=== PATIENT | female | born 1950 | race Caucasian/White ===

== ENCOUNTER → 2017-09-24 | Outpatient (CLI) | payer MEDICARE ==
--- NOTE | 2017-09-24 13:18 | Diagnostic Imaging Report ---
INDICATION: Routine screening. Comparison is made with prior exam from 04/17/2016 and 03/22/2015. The current study was also evaluated with a Computer Aided Detection (CAD) system. Both breasts remain heterogeneously dense, limiting the sensitivity of mammography. Benign-appearing calcifications are noted bilaterally. There are benign-appearing nodular densities in both breasts which appear stable. No spiculated mass or malignant appearing microcalcifications are seen. The axillae are unremarkable. IMPRESSION: BI-RADS category 2 No mammographic features suspicious for malignancy are identified. ACR BI-RADS Category 2: Benign findings. Result letter will be mailed to the patient. Note: At least 10% of breast cancer is not imaged by mammography. Dictated by: Dictated on workstation # [id number]
== END ==
LOC: RAD 10:44
PROVIDERS: ATTEND Internal Medicine
DX: Z12.31 Encounter for screening mammogram for malignant neoplasm of breast (principal)
CPT/HCPCS: 77067

== ENCOUNTER 2018-07-13 06:24 | Outpatient (CLI) | payer MEDICARE ==
[~2018-07-13] VITALS: Ht 167.6 cm; Wt 90.7 kg
[2018-07-13] MEDS ORDERED: IRBE1TAB43 PO (12:57)
[2018-07-13] MEDS ORDERED: TRAM50TA2 PO (12:57)
[2018-07-13] MEDS ORDERED: ATOR40TA70 PO (12:57)
[2018-07-13] MEDS ORDERED: NALT1TAB PO (12:57)
[2018-07-13] MEDS ORDERED: ESTR0.5T PO (12:57)
[2018-07-13] MEDS ORDERED: MIRA25TA PO (12:57)
[2018-07-13] MEDS ORDERED: FENO145T37 PO (12:57)
== END 2018-07-13 13:00 | disposition home or self-care (01) ==
LOC: PREOP 06:24
PROVIDERS: ATTEND Specialist
DX: Z01.818 Encounter for other preprocedural examination (principal)

== ENCOUNTER 2018-07-16 10:16 | Day surgery (SDC) | payer MEDICARE ==
[~2018-07-16] VITALS: Ht 167.6 cm; Wt 90.7 kg
[~2018-07-16 10:16] MED LIST: ATOR40TA70 PO; ESTR0.5T PO; FENO145T37 PO; IRBE1TAB43 PO; MIRA25TA PO; NALT1TAB PO; TRAM50TA2 PO
--- OUTSIDE RECORDS SUMMARY | 2018-07-16 10:19 | XMS REPORT ---
Author Author HARITHA LANG [facility] Address [address] [place] [address] Care Team Providers Care Product Architect Name Role Phone HARITHA LANG Unavailable PROBLEMS Unknown Problems ALLERGIES No Information SOCIAL HISTORY Never Assessed PLAN OF CARE VITAL SIGNS MEDICATIONS Unknown Medications RESULTS No Results PROCEDURES No Known procedures IMMUNIZATIONS No Known Immunizations
--- OUTSIDE RECORDS SUMMARY | 2018-07-16 10:19 | XMS REPORT ---
Author Author NIMO SNIDER Organization [facility] Address [address] [place] [address] Care Team Providers Care Steamship Agent Name Role Phone NIMO SNIDER Unavailable PROBLEMS Unknown Problems ALLERGIES No Information ENCOUNTERS Encounter Location Date Diagnosis [place] [id number], [place] [address] Nov, [facility] [id number] [place] [phone] Mar, [place] [id number] [place] [address] Mar, Encounter for immunization Z23 [place] [address], [place] [address] Jul, [facility] [address], [place] [address] Dec, Vaccin strep pneumoniae V03.82 IMMUNIZATIONS No Known Immunizations SOCIAL HISTORY Never Assessed REASON FOR VISIT Tramadol PLAN OF CARE VITAL SIGNS MEDICATIONS Medication Instructions Dosage Frequency Start Date End Date Duration Status Tramadol HCl 50 MG TAKE 1 TABLET BY MOUTH THREE TIMES DAILY NEEDED FOR PAIN 33 Active RESULTS No Results PROCEDURES No Known procedures INSTRUCTIONS MEDICATIONS ADMINISTERED No Known Medications
--- OUTSIDE RECORDS SUMMARY | 2018-07-16 10:19 | XMS REPORT | Continuity of Care Document ---
Author Author [facility] Organization [facility] Address Unknown Phone Unavailable Allergies Active Description Code Type Severity Reaction Onset Reported/Identified Relationship to Patient Clinical Status Yes adhesive tape [id number] Drug Allergy Unknown N/A 07/13/2018 Medications There is no data. Problems Date Dx Coded Attending Type Code Diagnosis Diagnosed By 04/03/2015 AURELIO FERRER MD, Ot Z12.31 04/11/2015 AURELIO FERRER MD, Ot Z12.31 04/25/2015 AURELIO FERRER MD, Ot R92.8 10/10/2015 AURELIO FERRER MD Ot N60.02 SOLITARY CYST OF LEFT BREAST 11/05/2015 AURELIO FERRER MD, Ot N60.02 SOLITARY CYST OF LEFT BREAST 04/17/2016 AURELIO FERRER MD, Ot Z12.31 ENCNTR SCREEN MAMMOGRAM FOR MALIGNANT NE 04/18/2016 AURELIO FERRER MD, Ot Z12.31 ENCNTR SCREEN MAMMOGRAM FOR MALIGNANT NE 04/18/2016 AURELIO FERRER MD Ot R92.8 OTH ABN AND INCONCLUSIVE FINDINGS ON DX 04/18/2016 AURELIO FERRER MD Ot N60.02 SOLITARY CYST OF LEFT BREAST 04/18/2016 AURELIO FERRER MD, Ot Z12.31 ENCNTR SCREEN MAMMOGRAM FOR MALIGNANT NE 04/18/2016 AURELIO FERRER MD, Ot Z12.31 ENCNTR SCREEN MAMMOGRAM FOR MALIGNANT NE 04/28/2016 AURELIO FERRER MD, Ot Z12.31 ENCNTR SCREEN MAMMOGRAM FOR MALIGNANT NE 08/02/2016 Ot 733.90 BONE CARTILAGE DIS NOS 08/02/2016 Ot V76.12 OTH SCREEN MAMMO-MALIGN NEOPLASM OF UMU 08/02/2016 AURELIO FERRER MD Ot V76.12 OTH SCREEN MAMMO-MALIGN NEOPLASM OF UMU 08/03/2016 Ot 733.90 BONE CARTILAGE DIS NOS 08/03/2016 Ot V76.12 OTH SCREEN MAMMO-MALIGN NEOPLASM OF UMU 08/03/2016 AURELIO FERRER MD Ot V76.12 OTH SCREEN MAMMO-MALIGN NEOPLASM OF UMU 09/22/2017 AURELIO FERRER MD, Ot Z12.31 ENCNTR SCREEN MAMMOGRAM FOR MALIGNANT NE 09/24/2017 AURELIO FERRER MD, Ot Z12.31 ENCNTR SCREEN MAMMOGRAM FOR MALIGNANT NE 09/24/2017 AURELIO FERRER MD Ot R92.8 OTH ABN AND INCONCLUSIVE FINDINGS ON DX 09/24/2017 AURELIO FERRER MD Ot N60.02 SOLITARY CYST OF LEFT BREAST 09/24/2017 AURELIO FERRER MD, Ot Z12.31 ENCNTR SCREEN MAMMOGRAM FOR MALIGNANT NE 09/25/2017 AURELIO FERRER MD, Ot Z12.31 ENCNTR SCREEN MAMMOGRAM FOR MALIGNANT NE 10/14/2017 AURELIO FERRER MD, Ot Z12.31 ENCNTR SCREEN MAMMOGRAM FOR MALIGNANT NE 07/13/2018 SULY BAR MD Ot Z01.818 ENCOUNTER FOR OTHER PREPROCEDURAL EXAMIN 07/14/2018 SULY BAR MD Ot Z01.818 ENCOUNTER FOR OTHER PREPROCEDURAL EXAMIN 07/15/2018 AURELIO FERRER MD Ot Z12.31 ENCNTR SCREEN MAMMOGRAM FOR MALIGNANT NE 07/15/2018 AURELIO FERRER MD, Ot R92.8 OTH ABN AND INCONCLUSIVE FINDINGS ON DX 07/15/2018 AURELIO FERRER MD Ot N60.02 SOLITARY CYST OF LEFT BREAST 07/15/2018 AURELIO FERRER MD Ot Z12.31 ENCNTR SCREEN MAMMOGRAM FOR MALIGNANT NE 07/15/2018 AURELIO FERRER MD, Ot Z12.31 ENCNTR SCREEN MAMMOGRAM FOR MALIGNANT NE Procedures There is no data. Results There is no data. Encounters ACCT No. Visit Date/Time Discharge Status Pt. Type Provider Facility Loc./Unit Complaint [id number] 07/13/2018 06:24:00 07/13/2018 13:00:00 DIS Outpatient SULY BAR MD [facility] PREOP LEFT CATARACT [id number] 09/24/2017 10:44:00 09/24/2017 23:59:59 CLS Outpatient AURELIO FERRER MD [facility] RAD SCREENING [id number] 04/30/2017 11:19:00 04/30/2017 23:59:59 CLS Preadmit AURELIO FERRER MD [facility] RAD SCREENING [id number] 04/17/2016 12:52:00 04/17/2016 23:59:59 CLS Outpatient AURELIO FERRER MD [facility] RAD YEARLY SCREENING [id number] 10/08/2015 13:38:00 10/08/2015 23:59:59 CLS Outpatient AURELIO FERRER MD [facility] RAD 6 MONTH FOLLOW UP [id number] 04/02/2015 08:20:00 04/02/2015 23:59:59 CLS Outpatient AURELIO FERRER MD [facility] RAD MEDIAL L BREAST BREAST FOCAL ASYMMETRY [id number] 03/22/2015 11:24:00 03/22/2015 23:59:59 CLS Outpatient AURELIO FERRER MD [facility] RAD SCREENING [id number] 08/09/2013 09:54:00 08/09/2013 23:59:59 CLS Outpatient AURELIO FERRER MD [facility] RAD SCREENING [id number] 07/30/2018 08:00:00 PEN Preadmit SULY BAR MD [facility] CATARACT RIGHT EYE [id number] 07/16/2018 10:16:00 ACT Outpatient SULY BAR MD [facility] LEFT CATARACT [id number] 12/19/2011 09:34:00 Document Registration [id number] 04/13/2017 14:20:00 04/13/2017 23:59:59 CLS Outpatient PRECIOUS ONEILL, [facility]
--- OUTSIDE RECORDS SUMMARY | 2018-07-16 10:19 | XMS REPORT ---
Author Author NIMO SNIDER Organization [facility] Address [address] [place] [address] Care Team Providers Care Medical Lab Tech Instructor Name Role Phone TYLORINMO Unavailable PROBLEMS Unknown Problems ALLERGIES No Information ENCOUNTERS Encounter Location Date Diagnosis [place] [address] [address] Mar, [place] [address] [address] Mar, Encounter for immunization Z23 [place] [address] [place] [id number] [address] Jul, [place] [address] [address] Dec, Vaccin strep pneumoniae V03.82 IMMUNIZATIONS No Known Immunizations SOCIAL HISTORY Never Assessed REASON FOR VISIT TrAMADOL PLAN OF CARE VITAL SIGNS MEDICATIONS Medication Instructions Dosage Frequency Start Date End Date Duration Status Ultram 50 mg Orally 3 times a day 1 tablet as needed 8h Jun, 30 days Active RESULTS No Results PROCEDURES No Known procedures INSTRUCTIONS MEDICATIONS ADMINISTERED No Known Medications
[2018-07-16 10:28] VITALS: BP 126/76
[2018-07-16] MEDS ORDERED: POVIDONE (BETADINE) OPHTH SOLN 5% 30 ML OP ONE (10:30)
[2018-07-16] MEDS ORDERED: TIMOLOL MALEATE 0.5% 5 ML (TIMOPTIC) BTL OU PRN (10:30)
[2018-07-16] MEDS ORDERED: LIDOCAINE PF 1% 2 ML AMP IR PRN (10:30)
[2018-07-16] MEDS ORDERED: MOXIFLOXACIN OPHTH SOLN 5 MG/ML 0.3 ML SYRINGE OP ONE (10:30)
[2018-07-16] MEDS: TETRACAINE 0.5% OPHTH SOLN 4 ML BTL (SINGLE DOSE ONLY) OU PRN ×3 (10:40→10:52)
[2018-07-16] MEDS ORDERED: MIDAZOLAM 2 MG/2 ML (VERSED) VIAL ONE (10:40)
[2018-07-16] MEDS: PHENYLEPHRINE 10% OPHTH (NEO-SYN) 5 ML BTL OU SCH ×3 (10:48→10:58)
[2018-07-16] MEDS: CYCLOPENTOLATE 1% (CYCLOGYL) 2 ML DROPS OP SCH ×3 (10:48→10:58)
--- NOTE | 2018-07-16 10:51 | Ophthalmologist Pre-Op Note ---
Pre-Operative Progress Note H&P Reviewed The H&P was reviewed, patient examined and no changes noted. Date H&P Reviewed: Jul 16, 2018 Time H&P Reviewed: 10:50 Pre-Op Dx Cataract, Left Eye SULY BAR MD Jul 16, 2018 10:50
--- NOTE | 2018-07-16 11:21 | Ophthalmology Operative Report ---
Cataract removal/placement IOL PREOPERATIVE DIAGNOSIS: Cataract Left Eye POSTOPERATIVE DIAGNOSIS: Cataract Left Eye PROCEDURE: Cataract removal and placement of posterior chamber implant, left eye SURGEON: Sergio Bar ANESTHESIA: Topical with sedation COMPLICATIONS: None ESTIMATED BLOOD LOSS: Minimal DESCRIPTION OF PROCEDURE: After proper informed consent was obtained, the patient, a 68 female, was taken to the Operating Room and the left eye was anesthetized with tetracaine. The left eye was then prepped and draped in the usual manner. A wire lid speculum was placed. A paracentesis was made at the left hand position. Preservative free lidocaine was injected into the anterior chamber followed by viscoelastic. A clear corneal incision was made in the temporal position. A capsulorrhexis was preformed and the central nuclear and cortical material were removed. The posterior capsule was polished and an Jesse 20.0 AU00T0 was placed into the capsular bag. The residual viscoelastic was aspirated and balanced saline solution was injected into the anterior chamber. Moxifloxacin was injected into the anterior chamber. The wound was checked and found to be water tight. The patient tolerated the procedure well without complications. SERGIO BAR MD Jul 16, 2018 11:21
[2018-07-16 11:29] VITALS: BP 130/79
[2018-07-16] MEDS ORDERED: acetaZOLAMIDE ER 500 MG CAP (DIAMOX SEQUELS) PO ONE (12:00)
--- NOTE | 2018-07-16 12:56 | Anesthesia-General Post-Op ---
MAC Patient Condition Mental Status/LOC: Same as Preop Cardiovascular: Satisfactory Nausea/Vomiting: Absent Respiratory: Satisfactory Pain: Controlled Complications: Absent Post Op Complications Complications None Follow Up Care/Instructions Patient Instructions None needed. Anesthesiology Discharge Order Discharge Order Patient is doing well, no complaints, stable vital signs, no apparent adverse anesthesia problems. No complications reported per nursing. CONSTANZA LAMB CRNA Jul 16, 2018 12:56
== END 2018-07-16 11:30 | disposition home or self-care (01) ==
LOC: SDC 10:16
PROVIDERS: ATTEND Specialist
DX: H25.12 Age-related nuclear cataract, left eye (principal); I10 Essential (primary) hypertension; Z79.899 Other long term (current) drug therapy

== ENCOUNTER 2018-07-23 05:39 | Outpatient (CLI) | payer MEDICARE ==
[~2018-07-23] VITALS: Ht 167.6 cm; Wt 90.7 kg
== END 2018-07-23 13:34 | disposition home or self-care (01) ==
LOC: PREOP 05:39
PROVIDERS: ATTEND Specialist
DX: Z01.818 Encounter for other preprocedural examination (principal)

== ENCOUNTER 2018-07-30 06:35 | Day surgery (SDC) | payer MEDICARE ==
[~2018-07-30] VITALS: Ht 167.6 cm; Wt 90.7 kg
[2018-07-30 06:42] VITALS: BP 144/82
--- OUTSIDE RECORDS SUMMARY | 2018-07-30 06:42 | XMS REPORT | Continuity of Care Document ---
Author Author [facility] Organization [facility] Address Unknown Phone Unavailable Allergies Active Description Code Type Severity Reaction Onset Reported/Identified Relationship to Patient Clinical Status Yes adhesive tape [id number] Drug Allergy Unknown N/A 07/13/2018 Medications There [...] MAMMO-MALIGN NEOPLASM OF UMU 09/22/2017 AURELIO FERRER MD Ot Z12.31 ENCNTR SCREEN MAMMOGRAM FOR MALIGNANT NE 09/24/2017 AURELIO FERRER MD Ot Z12.31 ENCNTR SCREEN MAMMOGRAM FOR MALIGNANT NE 09/24/2017 AURELIO FERRER MD Ot R92.8 OTH ABN AND INCONCLUSIVE FINDINGS ON DX 09/24/2017 AURELIO FERRER MD Ot N60.02 SOLITARY CYST OF LEFT BREAST 09/24/2017 AURELIO FERRER MD, Ot Z12.31 ENCNTR SCREEN MAMMOGRAM FOR MALIGNANT NE 09/25/2017 AURELIO FERRER MD Ot Z12.31 ENCNTR SCREEN MAMMOGRAM FOR MALIGNANT NE 10/14/2017 AURELIO FERRER MD Ot Z12.31 ENCNTR SCREEN MAMMOGRAM FOR MALIGNANT NE 07/13/2018 SULY BAR MD Ot Z01.818 ENCOUNTER FOR OTHER PREPROCEDURAL EXAMIN 07/14/2018 SULY BAR MD Ot Z01.818 ENCOUNTER FOR OTHER PREPROCEDURAL EXAMIN 07/15/2018 AURELIO FERRER MD Ot Z12.31 ENCNTR SCREEN MAMMOGRAM FOR MALIGNANT NE 07/15/2018 AURELIO FERRER MD Ot R92.8 OTH ABN AND INCONCLUSIVE FINDINGS ON DX 07/15/2018 AURELIO FERRER MD Ot N60.02 SOLITARY CYST OF LEFT BREAST 07/15/2018 AURELIO FERRER MD Ot Z12.31 ENCNTR SCREEN MAMMOGRAM FOR MALIGNANT NE 07/15/2018 AURELIO FERRER MD Ot Z12.31 ENCNTR SCREEN MAMMOGRAM FOR MALIGNANT NE 07/16/2018 SULY BAR MD Ot H25.12 AGE-RELATED NUCLEAR CATARACT, LEFT EYE 07/16/2018 SULY BAR MD Ot I10 ESSENTIAL (PRIMARY) HYPERTENSION 07/16/2018 SULY BAR MD Ot Z79.899 OTHER CONFIGURATION SPECIALIST (CURRENT) DRUG THERAPY 07/19/2018 SULY BRA MD Ot H25.12 AGE-RELATED NUCLEAR CATARACT, LEFT EYE 07/19/2018 SULY BAR MD Ot I10 ESSENTIAL (PRIMARY) HYPERTENSION 07/19/2018 SULY BAR MD Ot Z79.899 OTHER LONG-TERM (CURRENT) DRUG THERAPY 07/21/2018 SULY BAR MD Ot H25.12 AGE-RELATED NUCLEAR CATARACT, LEFT EYE 07/21/2018 SULY BAR MD Ot I10 ESSENTIAL (PRIMARY) HYPERTENSION 07/21/2018 SULY BAR MD Ot Z79.899 OTHER CONFIGURATION SPECIALIST (CURRENT) DRUG THERAPY 07/23/2018 SULY BAR MD Ot Z01.818 ENCOUNTER FOR OTHER PREPROCEDURAL EXAMIN 07/29/2018 AURELIO FERRER MD, Ot Z12.31 ENCNTR SCREEN MAMMOGRAM FOR MALIGNANT NE 07/29/2018 AURELIO FERRER MD, Ot R92.8 OTH ABN AND INCONCLUSIVE FINDINGS ON DX 07/29/2018 AURELIO FERRER MD Ot N60.02 SOLITARY CYST OF LEFT BREAST 07/29/2018 AURELIO FERRER MD, Ot Z12.31 ENCNTR SCREEN MAMMOGRAM FOR MALIGNANT NE 07/29/2018 AURELIO FERRER MD, Ot Z12.31 ENCNTR SCREEN MAMMOGRAM FOR MALIGNANT NE Procedures There is no data. Results There is no data. Encounters ACCT No. Visit Date/Time Discharge Status Pt. Type Provider Facility Loc./Unit Complaint [id number] 07/23/2018 05:39:00 07/23/2018 13:34:00 DIS Outpatient SULY BAR MD [facility] PREOP RIGHT CATARACT [id number] 07/16/2018 10:16:00 07/16/2018 11:30:00 DIS Outpatient SULY BAR MD [facility] SDC LEFT CATARACT [id number] 07/13/2018 06:24:00 07/13/2018 13:00:00 DIS Outpatient SULY BAR MD [facility] PREOP LEFT CATARACT [id number] 09/24/2017 10:44:00 09/24/2017 23:59:59 CLS Outpatient AURELIO FERRER MD [facility] RAD SCREENING [id number] 04/30/2017 11:19:00 04/30/2017 23:59:59 CLS Preadmit AURELIO FERRER MD [facility] RAD SCREENING [id number] 04/17/2016 12:52:00 04/17/2016 23:59:59 CLS Outpatient AURELIO FERRER MD [facility] RAD YEARLY SCREENING [id number] 10/08/2015 13:38:00 10/08/2015 23:59:59 CLS Outpatient AURELIO FERRER MD [facility] RAD 6 MONTH FOLLOW UP [id number] 04/02/2015 08:20:00 04/02/2015 23:59:59 CLS Outpatient AURELIO FERRER MD [facility] RAD MEDIAL L BREAST BREAST FOCAL ASYMMETRY [id number] 03/22/2015 11:24:00 03/22/2015 23:59:59 CLS Outpatient AURELIO FERRER MD [facility] RAD SCREENING [id number] 08/09/2013 09:54:00 08/09/2013 23:59:59 CLS Outpatient AURELIO FERRER MD [facility] RAD SCREENING [id number] 07/30/2018 08:00:00 SULY Mccann MD [facility] SDC CATARACT RIGHT EYE [id number] 12/19/2011 09:34:00 Document Registration [id number] 04/13/2017 14:20:00 04/13/2017 23:59:59 CLS [facility]
[2018-07-30] MEDS ORDERED: MOXIFLOXACIN OPHTH SOLN 5 MG/ML 0.3 ML SYRINGE OP ONE (06:45)
[2018-07-30] MEDS ORDERED: LIDOCAINE PF 1% 2 ML AMP IR PRN (06:45)
[2018-07-30] MEDS ORDERED: TIMOLOL MALEATE 0.5% 5 ML (TIMOPTIC) BTL OU PRN (06:45)
[2018-07-30] MEDS ORDERED: POVIDONE (BETADINE) OPHTH SOLN 5% 30 ML OP ONE (06:45)
[2018-07-30] MEDS: TETRACAINE 0.5% OPHTH SOLN 4 ML BTL (SINGLE DOSE ONLY) OU PRN ×4 (06:50→07:05)
[2018-07-30] MEDS: CYCLOPENTOLATE 1% (CYCLOGYL) 2 ML DROPS OP SCH ×3 (06:55→07:06)
[2018-07-30] MEDS: PHENYLEPHRINE 10% OPHTH (NEO-SYN) 5 ML BTL OU SCH ×3 (06:55→07:06)
[2018-07-30] MEDS ORDERED: MIDAZOLAM 2 MG/2 ML (VERSED) VIAL ONE (07:36)
--- NOTE | 2018-07-30 07:39 | Ophthalmologist Pre-Op Note ---
Pre-Operative Progress Note H&P Reviewed The H&P was reviewed, patient examined and no changes noted. Date H&P Reviewed: Jul 30, 2018 Time H&P Reviewed: 07:39 Pre-Op Dx Cataract, Right Eye SULY BAR MD Jul 30, 2018 07:39
[2018-07-30] MEDS ORDERED: acetaZOLAMIDE ER 500 MG CAP (DIAMOX SEQUELS) PO ONE (08:00)
--- NOTE | 2018-07-30 08:00 | Ophthalmology Operative Report ---
Cataract removal/placement IOL PREOPERATIVE DIAGNOSIS: Cataract Right Eye POSTOPERATIVE DIAGNOSIS: Cataract Right Eye PROCEDURE: Cataract removal and placement of posterior chamber implant, right eye SURGEON: Sergio Bar ANESTHESIA: Topical with sedation COMPLICATIONS: None ESTIMATED BLOOD LOSS: Minimal DESCRIPTION OF PROCEDURE: After proper informed consent was obtained, the patient, a 68 female, was taken to the Operating Room and the right eye was anesthetized with tetracaine. The right eye was then prepped and draped in the usual manner. A wire lid speculum was placed. A paracentesis was made at the left hand position. Preservative free lidocaine was injected into the anterior chamber followed by viscoelastic. A clear corneal incision was made in the temporal position. A capsulorrhexis was preformed and the central nuclear and cortical material were removed. The posterior capsule was polished and Jesse AU00T0 20.0 IOL was placed into the capsular bag. The residual viscoelastic was aspirated and balanced saline solution was injected into the anterior chamber. Moxifloxacin was injected into the anterior chamber. The wound was checked and found to be water tight. The patient tolerated the procedure well without complications. SERGIO BAR MD Jul 30, 2018 08:00
[2018-07-30 08:13] VITALS: BP 128/66
--- NOTE | 2018-07-30 13:07 | Anesthesia-General Post-Op ---
MAC Patient Condition Mental Status/LOC: Same as Preop Cardiovascular: Satisfactory Nausea/Vomiting: Absent Respiratory: Satisfactory Pain: Controlled Complications: Absent Post Op Complications Complications None Follow Up Care/Instructions Patient Instructions None needed. Anesthesiology Discharge Order Discharge Order Patient is doing well, no complaints, stable vital signs, no apparent adverse anesthesia problems. No complications reported per nursing. JUSTINE PUENTES CRNA Jul 30, 2018 13:07
== END 2018-07-30 08:13 | disposition home or self-care (01) ==
LOC: SDC 06:35
PROVIDERS: ATTEND Specialist
DX: H25.11 Age-related nuclear cataract, right eye (principal); Z87.891 Personal history of nicotine dependence; Z79.899 Other long term (current) drug therapy

== ENCOUNTER 2019-06-03 09:36 | Outpatient (RCR) | payer MEDICARE ==
[~2019-06-03 09:36] MED LIST changes: -TRAM50TA2 PO; +TRM50T PO
== END 2019-07-20 10:44 | disposition home or self-care (01) ==
PROVIDERS: ATTEND Internal Medicine
DX: M25.551 Pain in right hip (principal)

== ENCOUNTER → 2020-10-02 | Outpatient (CLI) | payer MEDICARE ==
[~2020-10-02] MED LIST changes: +FENO145T26 PO; -FENO145T37 PO
--- NOTE | 2020-10-02 12:39 | Diagnostic Imaging Report ---
INDICATION: Routine screening. COMPARISON: 09/24/2017 and 04/17/2016. TECHNIQUE: 2D and 3D bilateral screening mammography was performed with CAD. FINDINGS: Both breasts are heterogeneously dense, limiting the sensitivity of mammography. A fibronodular parenchymal pattern is again noted. Scattered benign calcifications are noted. No spiculated mass or malignant appearing microcalcifications are seen. The axillae are unremarkable. IMPRESSION: No mammographic features suspicious for malignancy are identified. ACR BI-RADS Category 2: Benign findings. Result letter will be mailed to the patient. Note: At least 10% of breast cancer is not imaged by mammography. Dictated by: Dictated on workstation # [id number]
== END ==
LOC: RAD 11:15
PROVIDERS: ATTEND Internal Medicine
DX: Z12.31 Encounter for screening mammogram for malignant neoplasm of breast (principal)
CPT/HCPCS: 77063; 77067

== ENCOUNTER 2022-05-21 17:15 | Inpatient (IN) | payer MEDICARE ==
[~2022-05-21] VITALS: Ht 167 cm; Wt 104.0 kg
[2022-05-21] MEDS ORDERED: KETOROLAC 30 MG/ML VIAL IVP STA (17:28)
[2022-05-21] MEDS ORDERED: NS IV 1000 ML 1,000 ML IV SCH (17:30)
--- NOTE | 2022-05-21 17:36 | ED Abdominal Pain ---
General Chief Complaint: Abdominal/GI Problems Stated Complaint: RIGHT SIDE/BACK PAIN Nursing Triage Note: ARRIVED VIA AMB TO ROOM 05 WITH COMPLAINTS OF RIGHT SIDED PAIN THAT RADIATES INTO THE BACK. Source of Information: Patient History of Present Illness Date Seen by Provider: May 21, 2022 Time Seen by Provider: 17:20 Initial Comments PT ARRIVES VIA POV FROM HOME WITH C/O RIGHT SIDED ABDOMINAL PAIN THAT RADIATES TO RIGHT FLANK--WOKE HER UP AT 0500 THIS AM PAIN IS CONSTANT, WORSE WITH WALKING OR WITH BUMPS ON THE ROAD ON THE CAR RIDE HERE + NAUSEA, NO VOMITING. DECREASED APPETITE NO URINARY SYMPTOMS, OTHER THAN DECREASED URINATION TODAY HAS NOT HAD FEVER WHEN SHE CHECKED HER TEMP, BUT HAS FELT FEVERISH AND HAD CHILLS SHE HAS CHRONIC COUGH AND SHORTNESS OF BREATH/DYSPNEA ON EXERTION--NORMAL FOR HER NO CHEST PAIN NO SWELLING IN FEET/ANKLES LAST FOOD INTAKE WAS AROUND NOON--HAD A BURGER NO PRIOR ABDOMINAL SURGERIES OR GI PROBLEMS NO HISTORY OF SIMILAR HAS NOT TAKEN ANYTHING FOR PAIN PT HAS HAD COVID VACCINE X 4, AND FLU VACCINE FOR THIS SEASON PCP: DR. FERRER Allergies and Home Medications Allergies Coded Allergies: adhesive tape (Verified Allergy, Unknown, 07/13/18) Patient Home Medication List Home Medication List Reviewed: Yes Atorvastatin Calcium (Atorvastatin Calcium) 40 Mg Tablet, 40 MG PO DAILY, (Reported) Entered as Reported by: RASHAD VAUGHAN on 07/13/18 1257 Estradiol (Estradiol Tablet) 0.5 Mg Tablet, 0.5 MG PO DAILY, (Reported) Entered as Reported by: RASHAD VAUGHAN on 07/13/18 1257 Fenofibrate Nanocrystallized (Fenofibrate) 145 Mg Tablet, 145 MG PO DAILY, (Reported) Entered as Reported by: RASHAD VAUGHAN on 07/13/18 1257 Irbesartan/Hydrochlorothiazide (Irbesartan-Hctz 300-12.5 mg Tb) 1 Each Tablet, 1 EACH PO DAILY, (Reported) Entered as Reported by: RASHAD VAUGHAN on 07/13/18 1257 Mirabegron (Myrbetriq) 25 Mg Tab.er.24h, 25 MG PO DAILY, (Reported) Entered as Reported by: RASHAD VAUGHAN on 07/13/18 1257 Naltrexone HCl/Bupropion HCl (Contrave ER 8-90 mg Tablet) 1 Each Tablet.er, 1 EACH PO DAILY, (Reported) Entered as Reported by: RASHAD VAUGHAN on 07/13/18 1257 Tramadol HCl (Tramadol HCl) 50 Mg Tablet, 50 MG PO TID PRN for PAIN-MILD, (Reported) Entered as Reported by: RASHAD VAUGHAN on 07/13/18 1257 Review of Systems Review of Systems Constitutional: see HPI EENTM: No Symptoms Reported Respiratory: See HPI Cardiovascular: No Symptoms Reported; Denies Chest Pain Gastrointestinal: See HPI, Abdominal Pain, Nausea, Poor Appetite; Denies Vomiting Genitourinary: See HPI Musculoskeletal: see HPI, back pain Skin: no symptoms reported; No rash Psychiatric/Neurological: No Symptoms Reported Endocrine: No Symptoms Reported Hematologic/Lymphatic: No Symptoms Reported Past Aqmtsko-Bmvmtj-Lbuqmo Hx Patient Social History Tobacco Use?: Yes Tobacco type used: Cigarettes Smoking Status: Former Smoker Substance use?: No Alcohol Use?: Yes Alcohol Frequency: Once in a while Immunizations Up To Date First/Initial COVID19 Vaccinat: MODERNA Second COVID19 Vaccination Zay: MODERN Third COVID19 Vaccination Date: Past Medical History Surgeries: Yes Eye Surgery Respiratory: Yes (SUSPECTED COPD/BURGESS/O2 SATS DROP WITH EXERTION) Cardiac: Yes High Cholesterol, Hypertension Neurological: No Genitourinary: No Gastrointestinal: Yes Polyps Musculoskeletal: No Endocrine: Yes (NOT CURRENTLY TAKING MEDICATION) Diabetes, Non-Insulin dep HEENT: Yes (BILAT CATARACT SURGERY 07/2018) Cataract Cancer: No Psychosocial: No Integumentary: No Blood Disorders: No Family Medical History PAST SURGICAL HISTORY: -BILATERAL CATARACT SURGERY 07/2018 -SCREENING COLONOSCOPY WITH POLYPECTOMY 2008 Physical Exam Vital Signs Vital Signs - First Documented 05/21/22 17:15 Temp 36.8 Pulse 83 Resp 16 B/P (MAP) 153/77 (102) Pulse Ox 91 O2 Delivery Nasal Cannula O2 Flow Rate 2.00 Capillary Refill : Less Than 3 Seconds Height/Weight/BMI Height: 5'6.00" Weight: 200lbs. 0.0oz. 90.478745pe; 37.00 BMI Method: General Appearance: WD/WN, obese, other (LOOKS UNCOMFORTABLE) HEENT: No scleral icterus (R), No scleral icterus (L) Neck: normal inspection Respiratory: chest non-tender, normal breath sounds, no respiratory distress, no accessory muscle use Cardiovascular: regular rate, rhythm, no murmur Gastrointestinal: soft; No distended; guarding (RUQ), tenderness (RUQ AND EPIGASTRIC AREAS); No hernia, No mass Extremities: normal range of motion, non-tender, no pedal edema, no calf tenderness, normal capillary refill Back: no vertebral tenderness, CVA tenderness (R) Neurologic/Psychiatric: speaker mounter II-XII nml as tested, no motor/sensory deficits, alert, normal mood/affect, oriented x 3 Skin: normal color, warm/dry; No rash Focused Exam Sepsis Stage: Sepsis Possible Source: Genitouriary Lactate Level 05/21/22 18:30: Lactic Acid Level 1.66 Time of Focused Exam: 19:00 Respiratory: Normal Breath Sounds, No Accessory Muscle Use, No Respiratory Distress Cardiovascular: Regular Rate, Rhythm, No Murmur Capillary Refill: Less Than 3 Seconds Skin: normal color, warm/dry Lactic Acid Level Laboratory Tests Test 05/21/22 18:30 Lactic Acid Level 1.66 MMOL/L (0.50-2.00) Within 3hrs of presentation: Admin fluids, Admin ABX, Blood cultures prior to ABX's, Focus exam, Lactate level Progress/Results/Core Measures Results/Orders Lab Results Laboratory Tests Test 05/21/22 17:35 05/21/22 18:30 05/21/22 19:00 Range/Units White Blood Count 24.1 H 4.3-11.0 10^3/uL Red Blood Count 4.91 3.80-5.11 10^6/uL Hemoglobin 14.3 11.5-16.0 g/dL Hematocrit 44 35-52 % Mean Corpuscular Volume 90 80-99 fL Mean Corpuscular Hemoglobin 29 25-34 pg Mean Corpuscular Hemoglobin Concent 32 32-36 g/dL Red Cell Distribution Width 14.9 H 10.0-14.5 % Platelet Count 508 H 130-400 10^3/uL Mean Platelet Volume 11.4 9.0-12.2 fL Immature Granulocyte % (Auto) 1 % Neutrophils (%) (Auto) 81 H 42-75 % Lymphocytes (%) (Auto) 9 L 12-44 % Monocytes (%) (Auto) 9 0-12 % Eosinophils (%) (Auto) 0 0-10 % Basophils (%) (Auto) 1 0-10 % Neutrophils # (Auto) 19.5 H 1.8-7.8 10^3/uL Lymphocytes # (Auto) 2.3 1.0-4.0 10^3/uL Monocytes # (Auto) 2.1 H 0.0-1.0 10^3/uL Eosinophils # (Auto) 0.0 0.0-0.3 10^3/uL Basophils # (Auto) 0.1 0.0-0.1 10^3/uL Immature Granulocyte # (Auto) 0.2 H 0.0-0.1 10^3/uL Neutrophils % (Manual) 84 % Lymphocytes % (Manual) 6 % Monocytes % (Manual) 10 % Eosinophils % (Manual) % Microcytosis Acanthocytes SLIGHT Erythrocyte Sedimentation Rate 1 0-30 MM/HR Sodium Level 135 135-145 MMOL/L Potassium Level 4.5 3.6-5.0 MMOL/L Chloride Level 100 98-107 MMOL/L Carbon Dioxide Level 25 21-32 MMOL/L Anion Gap 10 5-14 MMOL/L Blood Urea Nitrogen 25 H 7-18 MG/DL Creatinine 1.57 H 0.60-1.30 MG/DL Estimat Glomerular Filtration Rate 35 BUN/Creatinine Ratio 16 Glucose Level 191 H 70-105 MG/DL Calcium Level 9.8 8.5-10.1 MG/DL Corrected Calcium 9.9 8.5-10.1 MG/DL Total Bilirubin 0.4 0.1-1.0 MG/DL Aspartate Amino Transf (AST/SGOT) 15 5-34 U/L Alanine Aminotransferase (ALT/SGPT) 14 0-55 U/L Alkaline Phosphatase 106 40-136 U/L C-Reactive Protein High Sensitivity 8.95 H 0.00-0.50 MG/DL Total Protein 7.7 6.4-8.2 GM/DL Albumin 3.9 3.2-4.5 GM/DL Amylase Level 41 25-125 U/L Lipase 9 8-78 U/L Procalcitonin 0.10 H <0.10 NG/ML Lactic Acid Level 1.66 0.50-2.00 MMOL/L Urine Color YELLOW Urine Clarity TURBID Urine pH 5.5 5-9 Urine Specific [place] 1.025 H 1.016-1.022 Urine Protein 2+ H NEGATIVE Urine Glucose (UA) TRACE H NEGATIVE Urine Ketones TRACE H NEGATIVE Urine Nitrite NEGATIVE NEGATIVE Urine Bilirubin NEGATIVE NEGATIVE Urine Urobilinogen 1.0 < = 1.0 MG/DL Urine Leukocyte Esterase 2+ H NEGATIVE Urine RBC (Auto) 2+ H NEGATIVE Urine RBC 25-50 H /HPF Urine WBC TNTC H /HPF Urine Squamous Epithelial Cells 2-5 /HPF Urine Crystals NONE /LPF Urine Bacteria LARGE H /HPF Urine Casts NONE /LPF Urine Mucus NEGATIVE /LPF Urine Culture Indicated CULTURE PENDING My Orders Orders - CHRISTOPHER POSADAS DO Ed Iv/Invasive Line Start (05/21/22 17:28) O2 (05/21/22 17:28) Monitor-Rhythm Ecg Trace Only (05/21/22 17:28) Amylase (05/21/22 17:28) Cbc With Automated Diff (05/21/22 17:28) Comprehensive Metabolic Panel (05/21/22 17:28) Hs C Reactive Protein (05/21/22 17:28) Lipase (05/21/22 17:28) Ua Culture If Indicated (05/21/22 17:28) Ed Iv/Invasive Line Start (05/21/22 17:28) Ns Iv 1000 Ml (Sodium Chloride 0.9%) (05/21/22 17:30) Ketorolac Injection (Toradol Injection) (05/21/22 17:28) Manual Differential (05/21/22 17:35) Hs C Reactive Protein (05/21/22 17:59) Lactic Acid Analyzer (05/21/22 17:59) Procalcitonin (Pct) (05/21/22 17:59) Erythrocyte Sedimentation Rate (05/21/22 17:59) Blood Culture (05/21/22 17:59) Urine Culture (05/21/22 17:59) Chest 1 View, Ap/Pa Only (05/21/22 17:59) Ed Iv/Invasive Line Start (05/21/22 17:59) Vital Signs Adult Sepsis Patie Q15M (05/21/22 17:59) O2 (05/21/22 17:59) Remove Rings In Anticipation O (05/21/22 17:59) Ct Abd/Pelvis Wo(Kidney Stone) (05/21/22 18:03) Abdomen/Kub 1view (05/21/22 18:03) Ceftriaxone 1 Gm Pre-Mix (Rocephin 1 Gm (05/21/22 19:00) Fentanyl Inj (Sublimaze Injection) (05/21/22 19:00) Ed Admission (Communication) (05/21/22 18:59) Medications Given in ED Current Medications Medications Dose Ordered Sig/Anu Route Start Time Stop Time Status Last Admin Dose Admin Ceftriaxone Sodium/Dextrose 50 ml @ 100 mls/hr ONCE ONCE IV 05/21/22 19:00 05/21/22 19:29 DC 05/21/22 19:07 100 MLS/HR Fentanyl Citrate 50 mcg ONCE ONCE IVP 05/21/22 19:00 05/21/22 19:03 DC 05/21/22 19:07 50 MCG Vital Signs/I&O 05/21/22 05/21/22 17:15 17:15 Temp 36.8 Pulse 83 Resp 16 B/P (MAP) 153/77 (102) Pulse Ox 91 91 O2 Delivery Nasal Cannula Room Air O2 Flow Rate 2.00 05/22/22 00:00 Intake Total 1000 ml Balance 1000 ml Blood Pressure Mean: 102 Progress Progress Note : Progress Note O2 SAT 90% ON ARRIVAL AND PT IS MILDLY DYSPNEIC WITH EXERTION OF WALKING INTO ER. PT STATES THIS IS NORMAL FOR HER. PT / STATE THAT SHE HAS SUSPECTED COPD, WITH HISTORY OF SMOKING IN THE PAST. PLACED ON O2 AT 2L/NC AND O2 SATS QUICKLY UP TO 96-97% SEPSIS PROTOCOL INITIATED ON RECEIVING CBC RESULTS WITH WBC OF 24,000. GIVEN: -IV FLUIDS -TORADOL FOR PAIN WITH SOME IMPROVEMENT -FENTANYL FOR PAIN WITH MUCH IMPROVEMENT -ROCEPHIN FOR UTI NO DETERIORATION IN PT'S CONDITION DURING ER STAY VITALS REMAIN STABLE. REVIEWED TEST RESULTS WITH PT AND (WHO IS A PHYSICIAN) Diagnostic Imaging Comments PER RADIOLOGIST REPORTS AT 1851 CT ABDOMEN/PELVIS-- FINDINGS: Included portions of the lung bases are clear. Small hiatal hernia is noted. CT ABDOMEN: There is severe right-sided hydronephrosis. Despite this, the right ureter compressed. Additionally, no renal or ureteral calculi can be identified on either side. Findings raise strong suspicion for underlying UPJ obstruction. No suspicious renal mass is seen on either side. Large hypodense right renal cyst is also present. Gallstones are present within the lumen of the gallbladder. There is no gallbladder wall thickening or pericholecystic free fluid. The adrenal glands, pancreas, and liver have an unremarkable noncontrast CT appearance. 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 Small splenules are noted within the left upper abdominal quadrant. Small bowel loops are nondistended. Normal appendix is identified. There is no loculated fluid collection, free fluid or free air within the abdomen. No abnormal mesenteric or retroperitoneal adenopathy is seen. There is moderate scattered calcified aortic and arterial atherosclerosis. Osseous structures show no acute abnormalities. CT PELVIS: Urinary bladder is unopacified. No calculi are seen within the urinary bladder. There is no loculated fluid collection, free fluid or free air within the pelvis. No abnormal lymph nodes are identified. Osseous structures show no acute abnormalities. IMPRESSION: 1. There is severe right-sided hydronephrosis, but no renal or ureteral calculi are seen on either side. Additionally, the right ureter is essentially decompressed. This does raise strong suspicion for underlying UPJ obstruction. This could be further assessed with renal Lasix scan. 2. Cholelithiasis, but no CT evidence of acute cholecystitis. Reviewed: Reviewed by De Departure Communication (Admissions) 1853--SPOKE WITH DR. SUBRAMANIAN, UROLOGIST, HE ADVISES TO ADMIT TO HOSPITALIST AND HE WILL SEE HER IN CONSULT. 1856--SPOKE WITH DR. HERNANDEZ, HOSPITALIST, ACCEPTS PT FOR ADMIT. SHE WILL DO ADMIT ORDERS. Impression Primary Impression: Sepsis Additional Impressions: RIGHT SIDED RENAL UPJ OBSTRUCTION Urinary tract infection Renal insufficiency Hyperglycemia DYSPNEA AND HYPOXIA ON EXERTION. POSSIBLE COPD Disposition: ADMITTED INPATIENT Condition: Stable Admissions Decision to Admit Reason: Admit from ER (General) Decision to Admit/Date: May 21, 2022 Time/Decision to Admit Time: 18:55 Departure-Patient Inst. Referrals: AURELIO FERRER MD (PCP/Family) Primary Care Physician CHRISTOPHER POSADAS DO May 21, 2022 17:36
[2022-05-21 17:53] LABS: BASOPHILS # (AUTO) 0.1 10^3/uL (0.0-0.1); BASOPHILS % (AUTO) 1 % (0-10); EOSINOPHILS % (AUTO) 0 % (0-10); HEMATOCRIT 44 % (35-52); HEMOGLOBIN 14.3 g/dL (11.5-16.0); LYMPHOCYTES # (AUTO) 2.3 10^3/uL (1.0-4.0); LYMPHOCYTES % (AUTO) 9 % (12-44); MEAN CORPUSCULAR HEMOGLOBIN 29 pg (25-34); MEAN CORPUSCULAR HGB CONC 32 g/dL (32-36); MEAN CORPUSCULAR VOLUME 90 fL (80-99); MEAN PLATELET VOLUME 11.4 fL (9.0-12.2); MONOCYTES # (AUTO) 2.1 10^3/uL (0.0-1.0); MONOCYTES % (AUTO) 9 % (0-12); NEUTROPHILS # (AUTO) 19.5 10^3/uL (1.8-7.8); NEUTROPHILS % (AUTO) 81 % (42-75); PLATELET COUNT 508 10^3/uL (130-400); WHITE BLOOD COUNT 24.1 10^3/uL (4.3-11.0)
[2022-05-21 17:54] LABS: ALBUMIN 3.9 GM/DL (3.2-4.5); POTASSIUM 4.5 MMOL/L (3.6-5.0)
[2022-05-21 17:55] LABS: CALCIUM 9.8 MG/DL (8.5-10.1)
[2022-05-21 17:56] LABS: TOTAL PROTEIN 7.7 GM/DL (6.4-8.2)
[2022-05-21 17:58] LABS: BILIRUBIN,TOTAL 0.4 MG/DL (0.1-1.0)
[2022-05-21 18:00] LABS: CREATININE SERUM 1.57 MG/DL (0.60-1.30)
--- NOTE | 2022-05-21 18:35 | Diagnostic Imaging Report ---
INDICATION: Abdomen pain. COMPARISON: CT abdomen and pelvis from earlier same day. FINDINGS: Two frontal supine radiographic views of the abdomen were obtained and demonstrate nondistended loops of small bowel. There is no large collection of free peritoneal air. Mild air and stool are seen scattered throughout the colon. No unexpected extraosseous calcifications or radiopaque foreign bodies are seen. Bony structures show no gross acute abnormalities. IMPRESSION: 1. Nonobstructed small bowel gas pattern. Dictated by: Dictated on workstation # [id number]
--- NOTE | 2022-05-21 18:38 | Diagnostic Imaging Report ---
INDICATION: Dyspnea. COMPARISON: CT from the same date. TECHNIQUE: Single radiograph of the chest dated 05/21/2022. FINDINGS: The cardiac silhouette is within normal limits in size. No significant pulmonary vascular congestion. Rounded prominence of the right hilar region is present. Very minimal left basilar interstitial opacities. This is associated with blunting of the left costophrenic angle. The right lung is clear. No large-volume pleural effusion. No pneumothorax. Chronic bilateral rib fractures without acute osseous abnormality. IMPRESSION: Minimal left basilar atelectasis and/or pneumonitis with trace left pleural fluid versus pleural scarring. Rounded prominence of the right hilar region, which could relate to an ascending thoracic aortic aneurysm versus prominence of the right pulmonary artery or even adenopathy. Chronic bilateral rib fractures. Dictated by: Dictated on workstation # [id number]
--- NOTE | 2022-05-21 18:42 | Diagnostic Imaging Report ---
PROCEDURE: CT urinary tract, rule out kidney stone. TECHNIQUE: Multiple contiguous axial images were obtained through the abdomen and pelvis without the use of intravenous contrast. Auto Exposure Controls were utilized during the CT exam to meet ALARA standards for radiation dose reduction. INDICATION: Right-sided abdominal pain. COMPARISON: None FINDINGS: Included portions of the lung bases are clear. Small hiatal hernia is noted. CT ABDOMEN: There is severe right-sided hydronephrosis. Despite this, the right ureter compressed. Additionally, no renal or ureteral calculi can be identified on either side. Findings raise strong suspicion for underlying UPJ obstruction. No suspicious renal mass is seen on either side. Large hypodense right renal cyst is also present. Gallstones are present within the lumen of the gallbladder. There is no gallbladder wall thickening or pericholecystic free fluid. The adrenal glands, pancreas, and liver have an unremarkable noncontrast CT appearance. 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 Small splenules are noted within the left upper abdominal quadrant. Small bowel loops are nondistended. Normal appendix is identified. There is no loculated fluid collection, free fluid or free air within the abdomen. No abnormal mesenteric or retroperitoneal adenopathy is seen. There is moderate scattered calcified aortic and arterial atherosclerosis. Osseous structures show no acute abnormalities. CT PELVIS: Urinary bladder is unopacified. No calculi are seen within the urinary bladder. There is no loculated fluid collection, free fluid or free air within the pelvis. No abnormal lymph nodes are identified. Osseous structures show no acute abnormalities. IMPRESSION: 1. There is severe right-sided hydronephrosis, but no renal or ureteral calculi are seen on either side. Additionally, the right ureter is essentially decompressed. This does raise strong suspicion for underlying UPJ obstruction. This could be further assessed with renal Lasix scan. 2. Cholelithiasis, but no CT evidence of acute cholecystitis. Dictated by: Dictated on workstation # [id number]
[2022-05-21] MEDS ORDERED: fentaNYL INJ 100 MCG/2 ML AMP IVP ONE ×2 (19:00→20:15)
[2022-05-21] MEDS ORDERED: cefTRIAXone 1 GM PRE-MIX 50 ML IV ONE (19:00)
[2022-05-21 19:09] LABS: BILIRUBIN,URINE NEGATIVE (NEGATIVE); CLARITY,URINE TURBID; COLOR,URINE YELLOW; GLUCOSE, URINE (UA) TRACE (NEGATIVE); KETONES,URINE TRACE (NEGATIVE); LEUKOCYTE ESTERASE ,URINE 2+ (NEGATIVE); NITRITE,URINE NEGATIVE (NEGATIVE); PH,URINE 5.5 (5-9); PROTEIN,URINE 2+ (NEGATIVE)
[2022-05-21 19:15] LABS: LYMPHOCYTES % (MANUAL) 6 %; MONOCYTES % (MANUAL) 10 %; NEUTROPHILS % (MANUAL) 84 %
[2022-05-21 19:16] LABS: ACANTHOCYTES SLIGHT
[2022-05-21 19:24] LABS: BACTERIA,URINE LARGE /HPF; RBC,URINE 25-50 /HPF; WBC,URINE TNTC /HPF
[2022-05-21] MEDS ORDERED: ONDANSETRON 4 MG (ZOFRAN) ORAL DISSOLVE TAB PO PRN (21:45)
[2022-05-21] MEDS ORDERED: BISACODYL 10 MG SUPP (DULCOLAX) PR PRN (21:45)
[2022-05-21] MEDS ORDERED: ALPRAZolam 0.5 MG (XANAX) TAB PO PRN (21:45)
[2022-05-21] MEDS ORDERED: ONDANSETRON 4 MG/2 ML (SDV) Z0FRAN IV PRN (21:45)
[2022-05-21] MEDS ORDERED: CALCIUM CARBONATE 500 MG (TUMS) TAB.CHEW PO PRN (21:45)
[2022-05-21] MEDS ORDERED: ANTACID SUSP 30 ML UDC (MYLANTA) PO PRN (21:45)
[2022-05-21] MEDS ORDERED: MELATONIN 3 MG TABLET PO PRN (21:45)
[2022-05-21] MEDS ORDERED: diphenhydrAMINE 50 MG/ML INJ (BENADRYL) IVP PRN (21:45)
[2022-05-21] MEDS ORDERED: polyethylene glycoL POWDER 17 GM (MIRALAX) PACK PO PRN (21:45)
[2022-05-21] MEDS ORDERED: LACTULOSE SYRUP 10GM/15ML (ENULOSE) 30ML UDC PO PRN (21:45)
[2022-05-21] MEDS ORDERED: diphenhydrAMINE 25 MG TAB (BENADRYL) PO PRN (21:45)
[2022-05-21] MEDS ORDERED: MILK OF MAGNESIA 400 MG/5 ML 30 ML UDC PO PRN (21:45)
[2022-05-21 21:46] VITALS: BP 146/79
[2022-05-21] MEDS: NS IV 1000 ML 1,000 ML IV SCH (22:29)
[2022-05-21 22:30] VITALS: BP 146/79
[2022-05-21] MEDS: HYDROmorphone 2 MG/ML VIAL (DILAUDID) IV PRN (23:00)
[2022-05-21] MEDS ORDERED: RT-ALBUTEROL SULF 2.5 MG/3 ML PRE-MIX VIAL INH PRN (23:00)
[2022-05-22] VITALS: BP 141/66
[2022-05-22] MEDS: cloNIDine 0.1 MG (CATAPRES) TAB PO SCH ×6 (02:18→20:00)
[2022-05-22] MEDS ORDERED: NS IV 1000 ML 1,000 ML ONE (03:56)
[2022-05-22] MEDS ORDERED: NS IV 1000 ML 1,000 ML IV SCH (04:15)
[2022-05-22] MEDS: HYDROmorphone 2 MG/ML VIAL (DILAUDID) IV PRN (04:27)
[2022-05-22 04:28] VITALS: BP 105/57
[2022-05-22 05:37] LABS: BASOPHILS # (AUTO) 0.1 10^3/uL (0.0-0.1); BASOPHILS % (AUTO) 0 % (0-10); EOSINOPHILS # (AUTO) 0.2 10^3/uL (0.0-0.3); EOSINOPHILS % (AUTO) 1 % (0-10); HEMATOCRIT 43 % (35-52); HEMOGLOBIN 13.7 g/dL (11.5-16.0); LYMPHOCYTES # (AUTO) 0.8 10^3/uL (1.0-4.0); LYMPHOCYTES % (AUTO) 3 % (12-44); MEAN CORPUSCULAR HEMOGLOBIN 29 pg (25-34); MEAN CORPUSCULAR HGB CONC 32 g/dL (32-36); MEAN CORPUSCULAR VOLUME 90 fL (80-99); MEAN PLATELET VOLUME 11.8 fL (9.0-12.2); MONOCYTES # (AUTO) 0.6 10^3/uL (0.0-1.0); MONOCYTES % (AUTO) 2 % (0-12); NEUTROPHILS # (AUTO) 26.9 10^3/uL (1.8-7.8); NEUTROPHILS % (AUTO) 93 % (42-75); PLATELET COUNT 383 10^3/uL (130-400); WHITE BLOOD COUNT 28.9 10^3/uL (4.3-11.0)
[2022-05-22 05:59] LABS: ALBUMIN 3.3 GM/DL (3.2-4.5); POTASSIUM 3.3 MMOL/L (3.6-5.0)
[2022-05-22 06:00] LABS: CALCIUM 8.7 MG/DL (8.5-10.1)
[2022-05-22 06:02] LABS: TOTAL PROTEIN 6.5 GM/DL (6.4-8.2)
[2022-05-22 06:05] LABS: CREATININE SERUM 1.95 MG/DL (0.60-1.30)
[2022-05-22] MEDS: inSUlin ASPART (NovoLOG) 1 UNIT/0.01 ML (CHARGE PER UNIT) SC SCH ×4 (06:14→21:00)
[2022-05-22] MEDS: POTASSIUM CL 10MEQ/50ML IVPB 50 ML IV SCH ×2 (06:25→08:33)
[2022-05-22] MEDS ORDERED: NS IV 1000 ML 1,000 ML IV PRN (07:45)
[2022-05-22] MEDS ORDERED: NS IV 500 ML 500 ML IV PRN (07:45)
[2022-05-22 08:22] VITALS: BP 77/48
[2022-05-22] MEDS: NOREPINEPHRINE 8 MG/250 ML 250 ML IV SCH ×2 (08:45→21:29)
[2022-05-22] MEDS: SENNOSIDES 8.6 MG (SENOKOT) TAB PO SCH ×2 (09:20→21:37)
[2022-05-22] MEDS: DOCUSATE SODIUM 100 MG (COLACE) CAP PO SCH ×2 (09:20→21:37)
--- NOTE | 2022-05-22 09:50 | Tele-ICU Consult ---
History of Present Illness History of Present Illness Date Seen by Provider: May 22, 2022 Time Seen by Provider: 09:45 History of Present Illness 72 F with cc of hypotension 70/50, BP now 88/58, with MAP 69 wed right sided hydronephrosis, does have GB stones, UA showed 25-50 WBC's Pt is awake and alert, has right sided flank pain, is better urology to see Started on IV Rocephin PMH DM, HTN, Allergies and Home Medications Allergies Coded Allergies: adhesive tape (Verified Allergy, Unknown, 07/13/18) Home Medications Atorvastatin Calcium 40 Mg Tablet, 40 MG PO DAILY, (Reported) Estradiol 0.5 Mg Tablet, 0.5 MG PO DAILY, (Reported) Fenofibrate Nanocrystallized 145 Mg Tablet, 145 MG PO DAILY, (Reported) Irbesartan/Hydrochlorothiazide 1 Each Tablet, 1 EACH PO DAILY, (Reported) Mirabegron 25 Mg Tab.er.24h, 25 MG PO DAILY, (Reported) Naltrexone HCl/Bupropion HCl 1 Each Tablet.er, 1 EACH PO DAILY, (Reported) Tramadol HCl 50 Mg Tablet, 50 MG PO TID PRN for PAIN-MILD, (Reported) Past Medical/Social/Family Hx Patient Social History Tobacco Use?: No Tobacco type used: Cigarettes Smoking Status: Former Smoker Smokeless Tobacco Frequency: Never a User Use of E-Cig and/or Vaping dev: No Substance use?: No Alcohol Use?: No Alcohol Frequency: Once in a while Pt stated abuse/neglect: No Immunizations Up To Date Influenza Vaccine Up-to-Date: Yes; Up-to-Date First/Initial COVID19 Vaccinat: MODERNA Second COVID19 Vaccination Zay: MODERNA Tetanus Booster (TDap): Less Than 5 Years Hepatitis A: No Hepatitis B: No TB Skin Test: None Current Status status: No status: No Advance Directives: Yes Advance Directive Location: Family to bring in copy Primary Language: Brazilian Preferred Spoken Language: Brazilian Is interpretation needed?: No Family Medical History Family Hx: PAST SURGICAL HISTORY: -BILATERAL CATARACT SURGERY 07/2018 -SCREENING COLONOSCOPY WITH POLYPECTOMY 2008 Review of Systems Constitutional: see HPI EENTM: see HPI Respiratory: see HPI Cardiovascular: see HPI Gastrointestinal: see HPI Genitourinary: see HPI Musculoskeletal: see HPI Skin: see HPI Psychiatric/Neurological: See HPI Focused Exam Lactate Level 05/21/22 18:30: Lactic Acid Level 1.66 05/22/22 07:57: Lactic Acid Level 1.64 Height, Weight, BMI Height: 5'6.00" Weight: 200lbs. 0.0oz. 90.594203dx; 34.85 BMI Method: Time of Focused Exam: 19:00 Lactic Acid Level Laboratory Tests Test 05/22/22 07:57 Lactic Acid Level 1.64 MMOL/L (0.50-2.00) Exam Exam Patient acknowledged, consented, and participated in this virtual visit which was conducted using real time audio/video Vital Signs Date Time Temp Pulse Resp B/P (MAP) Pulse Ox O2 Delivery O2 Flow Rate FiO2 05/22/22 09:10 91 Nasal Cannula 1.50 05/22/22 09:00 89 25 93/53 (66) 92 Nasal Cannula 2.00 05/22/22 08:45 93 21 102/41 (61) 90 Nasal Cannula 2.00 05/22/22 08:39 91 Nasal Cannula 2.00 05/22/22 08:32 96 05/22/22 08:31 36.1 97 21 92/50 (64) 90 Nasal Cannula 2.00 05/22/22 08:30 95 11 84/55 (65) 90 Nasal Cannula 2.00 05/22/22 08:22 36.7 105 18 77/48 (58) 95 Nasal Cannula 3.00 05/22/22 08:15 97 11 92/50 (64) 90 Nasal Cannula 2.00 05/22/22 04:28 36.1 107 18 105/57 (73) 90 Nasal Cannula 3.00 05/22/22 00:00 36.0 93 20 141/66 (91) 92 Room Air 05/21/22 23:38 92 Room Air 05/21/22 22:30 38.1 86 92 21 05/21/22 22:08 92 Room Air 05/21/22 21:46 38.1 90 22 146/79 (101) 92 Room Air 05/21/22 21:11 36.4 86 14 150/69 98 Nasal Cannula 2.00 05/21/22 17:15 36.8 83 16 153/77 (102) 91 Room Air 05/21/22 17:15 91 Nasal Cannula 2.00 I & O 05/22/22 07:00 Intake Total 1250 ml Balance 1250 ml Height & Weight Height: 5'6.00" Weight: 200lbs. 0.0oz. 90.393280xf; 34.85 BMI Method: General Appearance: No Apparent Distress Respiratory: Normal Breath Sounds, No Accessory Muscle Use, No Respiratory Distress Cardiovascular: Regular Rate, Rhythm, No Murmur Capillary Refill: Less Than 3 Seconds Gastrointestinal: normal bowel sounds, non tender, soft; No distended; guarding (RUQ), tenderness (RUQ AND EPIGASTRIC AREAS); No hernia, No mass Extremity: Normal Capillary Refill, Swelling (right sided flank pain, 5/10 if moves around otherwise 2), Other (right sided flank pain 5/) Neurologic/Psychiatric: Alert, Oriented x3 Results Lab Laboratory Tests 05/21/22 17:35 05/22/22 05:06 Assessment/Plan Assessment/Plan usrosepsis, continue abx ,urology to see has pain meds ordered Critical Care: Critically Ill Patient Time spent with patient (mins): 25 CHRISTIANO FUENTES MD May 22, 2022 09:50
[2022-05-22] MEDS ORDERED: VANCOMYCIN INJECTION 0.1 MG in NS (IVPB) 250 ML IV SCH (10:00)
[2022-05-22] MEDS: MAGNESIUM 1 GM/100 ML IVPB 100 ML IV SCH ×2 (10:33→10:42)
[2022-05-22] MEDS: ENOXAPARIN 40 MG/0.4 ML (LOVENOX) SYR SC SCH (10:33)
[2022-05-22] MEDS: CEFEPIME INJECTION 1,000 MG in NS (IVPB) 50 ML IV SCH ×2 (10:33→17:12)
--- NOTE | 2022-05-22 10:44 | History & Physical ---
GAB ARANGO 05/22/22 1044: History of Present Illness History of Present Illness Reason for visit/HPI CC: Right upper abdominal pain HPI: Amaya Mcgregor is a 72 yo female who was transferred to the ICU after admission to med/surg from the ED with diagnosis of sepsis. The patient presented to the ED for right upper abdominal pain radiating to her right flank, beginning at 0500 on 05/22. She states the pain worsens with ambulation, and it is accompanied by nausea, chills, decreased urine, and nocturnal diaphoresis. The patient denies any vomit, decreased appetite, dysuria, fever, chest pain, leg swelling. She also denies any history of similar pain or abdominal surgery, as well as any personal or family history of kidney disease. The patient on evaluation today corroborates the above. The patient's VS since arrival are significant for initially elevated BP of 150/70 which has since decreased to hypotension, 90/50 in the room on evaluation; she is also borderline tachycardic and tachypneic with 91% O2 saturation on 1.5L of O2. Her bloodwork at time of evaluation is significant for WBC 28.9, K+ 3.3, CO2 20, BUN 28, Creat 1.95, Magnesium 1.0, CRP 8.95, Procalcitonin 4.47 (0.10 on arrival). UA shows signs of UTI with culture pending. CXR showed left basilar atelectasis and/or pneumonitis with trace left pleural scarring; Abdomen XR showed nonobstructed small bowel gas; CT Abd/Pelvis showed severe right-sided hydronephrosis with right ureter decompression and ch olelithiasis without evidence of cholecystitis. Patient as admitted for further workup of the hydronephrosis and management of her sepsis; she was transferred to the ICU due to concerns of septic shock. 1340 Patient's blood cultures returned positive for Gram Negative Bacilli, possible Klebsiella. Awaiting sensitivities. Date of Admission May 21, 2022 Date Seen by a Provider: May 22, 2022 Time Seen by a Provider: 10:00 I consulted on this patient on 05/22/22 10:36 Attending Physician Nelson Plascencia MD Admitting Physician Admitting Physician: Roselyn Hernandez DO Attending Physician: Roselyn Hernandez DO Consult Allergies and Home Medications Allergies Coded Allergies: adhesive tape (Verified Allergy, Unknown, 07/13/18) Patient Home Medication List Atorvastatin Calcium (Atorvastatin Calcium) 40 Mg Tablet, 40 MG PO DAILY, (Reported) Entered as Reported by: RASHAD VAUGHAN on 07/13/18 1257 Last Action: Reviewed Cetirizine HCl (Zyrtec) 10 Mg Tablet, 10 MG PO DAILY, (Reported) Entered as Reported by: ANDRES SWENSON on 05/22/221516 Last Action: Reviewed Esomeprazole Magnesium (Nexium 24Hr) 20 Mg Tablet.dr, 20 MG PO DAILY, (Reported) Entered as Reported by: ANDRES SWENSON on 05/22/221516 Last Action: Reviewed Estradiol (Estradiol Tablet) 0.5 Mg Tablet, 0.5 MG PO DAILY, (Reported) Entered as Reported by: RASHAD VAUGHAN on 07/13/18 1257 Last Action: Reviewed Fenofibrate Nanocrystallized (Fenofibrate) 145 Mg Tablet, 145 MG PO DAILY, (Reported) Entered as Reported by: RASHAD VAUGHAN on 07/13/18 1257 Last Action: Reviewed Irbesartan/Hydrochlorothiazide (Irbesartan-Hctz 300-12.5 mg Tb) 1 Each Tablet, 1 EACH PO DAILY, (Reported) Entered as Reported by: RASHAD VAUGHAN on 07/13/18 1257 Last Action: Reviewed Mirabegron (Myrbetriq) 50 Mg Tab.er.24h, 50 MG PO DAILY, (Reported) Entered as Reported by: ANDRES SWENSON on 05/22/221513 Last Action: Reviewed Tramadol HCl (Tramadol HCl) 50 Mg Tablet, 50 MG PO Q6H PRN for PAIN-MODERATE (5- 7), (Reported) Entered as Reported by: RASHAD VAUGHAN on 07/13/18 1257 Last Action: Reviewed Discontinued Medications Mirabegron (Myrbetriq) 25 Mg Tab.er.24h, 25 MG PO DAILY, (Reported) Discontinued Reason: Duplicate Order Entered as Reported by: RASHAD VAUGHAN on 07/13/18 1257 Last Action: Discontinued Naltrexone HCl/Bupropion HCl (Contrave ER 8-90 mg Tablet) 1 Each Tablet.er, 1 EACH PO DAILY, (Reported) Discontinued Reason: No Longer Taking Entered as Reported by: RASHAD VAUGHAN on 07/13/18 1257 Last Action: Discontinued Past Kltaang-Dyznxl-Unsjec Hx Patient Social History Marrital Status: Tobacco Use?: Yes Tobacco type used: Cigarettes Smoking Status: Former Smoker Smokeless Tobacco Frequency: Never a User Use of E-Cig and/or Vaping dev: No Substance use?: No Alcohol Use?: Yes Alcohol Frequency: Once in a while Pt feels they are or have been: No Immunizations Up To Date First/Initial COVID19 Vaccinat: MODERNA Second COVID19 Vaccination Zay: MODERNA Tetanus Booster (TDap): Less Than 5 Years Hepatitis A: No Hepatitis B: No Current Status status: No status: No Advance Directives: Yes Advance Directive Location: Family to bring in copy Primary Language: Bahamian Preferred Spoken Language: Bahamian Is interpretation needed?: No Past Medical History Surgeries: Eye Surgery High Cholesterol, Hypertension Polyps Diabetes, Non-Insulin dep Cataract Blood Disorders: No Family Medical History PAST SURGICAL HISTORY: -BILATERAL CATARACT SURGERY 07/2018 -SCREENING COLONOSCOPY WITH POLYPECTOMY 2008 Review of Systems Constitutional: chills, dizziness; No fever Respiratory: No dyspnea on exertion, No short of breath Cardiovascular: No chest pain, No edema Gastrointestinal: abdominal pain (RUQ); No loss of appetite; nausea; No vomiting Genitourinary: decreased output; No dysuria, No frequency Musculoskeletal: no symptoms reported Skin: no symptoms reported Psychiatric/Neurological: No Symptoms Reported Physical Exam Vital Signs Vital Signs - First Documented 05/21/22 05/21/22 17:15 22:30 Temp 36.8 Pulse 83 Resp 16 B/P (MAP) 153/77 (102) Pulse Ox 91 O2 Delivery Nasal Cannula O2 Flow Rate 2.00 FiO2 21 Capillary Refill : Less Than 3 Seconds Height, Weight, BMI Height: 5'6.00" Weight: 200lbs. 0.0oz. 90.153164pb; 34.85 BMI Method: General Appearance: WD/WN, Mild Distress, Obese Respiratory: Chest Non Tender, Lungs Clear, No Respiratory Distress, Decreased Breath Sounds (bilateral) Cardiovascular: Regular Rate, Rhythm, No Edema, No Murmur, Normal Peripheral Pulses Gastrointestinal: Normal Bowel Sounds, Soft, Guarding, Tenderness (RUQ) Extremity: No Pedal Edema Neurologic/Psychiatric: Alert, Oriented x3 Skin: Normal Color, Warm/Dry Assessment/Plan Assessment and Plan 1. Sepsis/septic shock secondary to pyelonephritis: Initiate antibiotic regimen. Continue NS. Consider PICC line vs central line placement. Use vasopressors as needed for persistent hypotension. Gram Negative Bacilli on blood culture. 2. RUQ abdominal pain: Obtain abdominal US. Manage pyelonephritis. 3. UPJ obstruction: Consult with Dr. Saunders of urology who suspects it to be c ongenital. 4. Hypomagnesemia: Initiate IV magnesium supplementation. 5. Hypokalemia: Initiate oral potassium supplementation. 6. Left basilar atelectasis vs pneumonitis: Continue supplemental O2 via nasal cannula. Monitor patient's respiratory status. 7. Elevated BUN, Creat: Continue IV fluid hydration. Recheck CMP in 24 hours. 8. HLD, HTN, Diabetes: Continue home meds. Admission Diagnosis Sepsis secondary to pyelonephritis Admission Status: Inpatient Order (span 2 midnights) Reason for Inpatient Admission: Sepsis secondary to pyelonephritis Clinical Quality Measures DVT/VTE Risk/Contraindication: Contraindications-Pharm: Other *list below* Other: needs or ROSELYN HERNANDEZ DO 05/23/22 0439: History of Present Illness History of Present Illness Reason for visit/HPI CC: Septic shock from pyelo HPI: This is a 72yoWF clinic patient of Dr Plascencia who has a h/o HTN and DM and previous heavy smoker who presented to the ER with abdominal pain and was found to have pydelo with hydronephrosis so she was admitted to 4th floor after IVF and Rocephin. Patient worsened with hypotension prompting ICU transfer for further IVF. Cefepime added and Rocephin DC. No levophed required. Allergies and Home Medications Allergies Coded Allergies: adhesive tape (Verified Allergy, Unknown, 07/13/18) Patient Home Medication List Home Medication List Reviewed: Yes Atorvastatin Calcium (Atorvastatin Calcium) 40 Mg Tablet, 40 MG PO DAILY, (Reported) Entered as Reported by: RASHAD VAUGHAN on 07/13/18 1257 Last Action: Reviewed Cetirizine HCl (Zyrtec) 10 Mg Tablet, 10 MG PO DAILY, (Reported) Entered as Reported by: ANDRES SWENSON on 05/22/22 1517 Last Action: Reviewed Esomeprazole Magnesium (Nexium 24Hr) 20 Mg Tablet., 20 MG PO DAILY, (Reported) Entered as Reported by: ANDRES SWENSON on 05/22/22 1517 Last Action: Reviewed Estradiol (Estradiol Tablet) 0.5 Mg Tablet, 0.5 MG PO DAILY, (Reported) Entered as Reported by: RASHAD VAUGHAN on 07/13/18 1257 Last Action: Reviewed Fenofibrate Nanocrystallized (Fenofibrate) 145 Mg Tablet, 145 MG PO DAILY, (Reported) Entered as Reported by: RASHAD VAUGHAN on 07/13/18 1257 Last Action: Reviewed Irbesartan/Hydrochlorothiazide (Irbesartan-Hctz 300-12.5 mg Tb) 1 Each Tablet, 1 EACH PO DAILY, (Reported) Entered as Reported by: RASHAD VAUGHAN on 07/13/18 1257 Last Action: Reviewed Mirabegron (Myrbetriq) 50 Mg Tab.er.24h, 50 MG PO DAILY, (Reported) Entered as Reported by: ANDRES SWENSON on 05/22/22 1514 Last Action: Reviewed Tramadol HCl (Tramadol HCl) 50 Mg Tablet, 50 MG PO Q6H PRN for PAIN-MODERATE (5- 7), (Reported) Entered as Reported by: RASHAD VAUGHAN on 07/13/18 1257 Last Action: Reviewed Discontinued Medications Mirabegron (Myrbetriq) 25 Mg Tab.er.24h, 25 MG PO DAILY, (Reported) Discontinued Reason: Duplicate Order Entered as Reported by: RASHAD VAUGHAN on 07/13/18 1257 Last Action: Discontinued Naltrexone HCl/Bupropion HCl (Contrave ER 8-90 mg Tablet) 1 Each Tablet.er, 1 EACH PO DAILY, (Reported) Discontinued Reason: No Longer Taking Entered as Reported by: RASHAD VAUGHAN on 07/13/18 1257 Last Action: Discontinued Past Teuzbnl-Imfmfl-Dghfor Hx Patient Social History Marrital Status: Employed/Student: retired Tobacco Use?: Yes Smoking Status: Former Smoker Past Medical History High Cholesterol, Hypertension Diabetes, Non-Insulin dep Review of Systems Constitutional: see HPI, chills, dizziness, fever Gastrointestinal: abdominal pain (RUQ) Genitourinary: decreased output Physical Exam General Appearance: No Apparent Distress, WD/WN, Anxious, Obese Eyes: Bilateral Eye Normal Inspection, Bilateral Eye PERRL, Bilateral Eye EOMI HEENT: PERRL/EOMI, Normal ENT Inspection, Pharynx Normal Neck: Full Range of Motion, Normal Inspection, Non Tender, Supple, Carotid Bruit Respiratory: Chest Non Tender, Lungs Clear, Normal Breath Sounds, No Accessory Muscle Use, No Respiratory Distress Cardiovascular: Regular Rate, Rhythm, No Edema, No Gallop, No JVD, No Murmur, Normal Peripheral Pulses Gastrointestinal: Normal Bowel Sounds, No Organomegaly, No Pulsatile Mass, Soft, Guarding, Tenderness (RUQ) Back: Normal Inspection, No CVA Tenderness, No Vertebral Tenderness Extremity: Normal Capillary Refill, Normal Inspection, Normal Range of Motion, Non Tender, No Calf Tenderness, No Pedal Edema Neurologic/Psychiatric: Alert, Oriented x3, No Motor/Sensory Deficits, Normal Mood/Affect Skin: Normal Color, Warm/Dry Lymphatic: No Adenopathy Assessment/Plan Assessment and Plan Assessment: Septic shock from pyelo Bacteremia from Klebsiella CHAS Hydronephrosis appears congential? Hypomag Hypo K DM Plan: IVF Cefepime ICU Problems: (1) Sepsis (2) Urinary tract infection Status: Acute (3) Renal insufficiency Status: Acute Admission Diagnosis Admission Status: Inpatient Order (span 2 midnights) Reason for Inpatient Admission: sepsis Supervisory-Addendum Brief Verification & Attestation Participated in pt care: history, MDM, physical Personally performed: exam, history, MDM, supervision of care Care discussed with: Medical Student Procedures: n/a Results interpretation: Verified all documentation Verification and Attestation of Medical Student E/M Service A medical student performed and documented this service in my presence. I reviewed and verified all information documented by the medical student and made modifications to such information, when appropriate. I personally performed the physical exam and medical decision making. Roselyn Hernandez, May 23, 2022,04:38 GAB ARANGO May 22, 2022 10:44 ROSELYN HERNANDEZ DO May 23, 2022 04:39
[2022-05-22] MEDS ORDERED: VANCOMYCIN 2000 MG/NS 500 ML IVPB IV ONE ×2 (11:00)
[2022-05-22] MEDS: NS IV 1000 ML 1,000 ML IV SCH ×2 (11:30→21:34)
--- NOTE | 2022-05-22 13:11 | Progress Note ---
Standard Progress Note Progress Notes/Assess & Plan Date Seen by a Provider: May 22, 2022 Time Seen by a Provider: 13:11 Progress/Assessment & Plan Magnesium was 1.9, replacement, will re check at 3 pm MD GINA Aponte JOSEPH K MD May 22, 2022 13:11
--- NOTE | 2022-05-22 13:39 | Diagnostic Imaging Report ---
PROCEDURE: US Gallbladder. TECHNIQUE: Multiple real-time grayscale images were obtained over the right upper quadrant in various projections. INDICATION: Cholelithiasis and a hydronephrosis noted on recent CT. Correlation is made with CT study one day earlier. Liver is enlarged at 21 cm. There is increased echogenicity throughout the liver consistent with hepatic steatosis. The portal vein is patent and shows normal direction of flow. Gallbladder contains multiple stones. No significant gallbladder wall thickening or pericholecystic fluid is identified. There is no biliary duct dilatation. Pancreas was obscured by bowel gas. Aorta appears nonaneurysmal. IVC is patent. Imaging of the right renal fossa shows a large cystic lesion in the upper pole approximately 7 cm in size. There also appears to be a cystic lesion more medially which may represent a markedly dilated renal pelvis when correlating with the CT. No definite calculi are detected. No definite ascites is seen. IMPRESSION: 1. Hepatomegaly and hepatic steatosis. 2. Cholelithiasis. 3. Significant right-sided hydronephrosis, correlating with CT study one day earlier. There appears to be marked dilatation of the renal pelvis, perhaps owing to UPJ obstruction. No calculi are detected. Dictated by: Dictated on workstation # [id number]
[2022-05-22] MEDS ORDERED: MIRA50TA PO (15:14)
[2022-05-22] MEDS ORDERED: ESOM20TA PO (15:17)
[2022-05-22] MEDS ORDERED: CETI10TA49 PO (15:17)
[2022-05-22 15:40] LABS: BASOPHILS # (AUTO) 0.1 10^3/uL (0.0-0.1); BASOPHILS % (AUTO) 0 % (0-10); EOSINOPHILS % (AUTO) 0 % (0-10); HEMATOCRIT 37 % (35-52); HEMOGLOBIN 11.9 g/dL (11.5-16.0); LYMPHOCYTES # (AUTO) 1.7 X 10^3 (1.0-4.0); LYMPHOCYTES % (AUTO) 5 % (12-44); MEAN CORPUSCULAR HEMOGLOBIN 30 pg (25-34); MEAN CORPUSCULAR HGB CONC 32 g/dL (32-36); MEAN CORPUSCULAR VOLUME 92 fL (80-99); MEAN PLATELET VOLUME 11.6 fL (9.0-12.2); MONOCYTES # (AUTO) 0.9 X 10^3 (0.0-1.0); MONOCYTES % (AUTO) 2 % (0-12); NEUTROPHILS # (AUTO) 33.6 X 10^3 (1.8-7.8); NEUTROPHILS % (AUTO) 88 % (42-75); PLATELET COUNT 374 10^3/uL (130-400)
[2022-05-22 15:43] LABS: WHITE BLOOD COUNT 38.3 10^3/uL (4.3-11.0)
[2022-05-22 15:45] LABS: POTASSIUM 4.8 MMOL/L (3.6-5.0)
--- NOTE | 2022-05-22 15:45 | CONSULTATION REPORT ---
DATE OF SERVICE: 05/22/2022 SUMMARY: After reviewing the patient's record, interviewing her and examining her, this is a 72-year-old lady known to me as the patient and socially, who presented to the emergency room with a right upper quadrant and flank and back pain. She also had fever and elevated white count with possible sepsis, although her lactic acid was normal. Her white count was 24,000 with high neutrophils. Her BUN and creatinine was 25 and 1.57 and her urine was positive for infection. CT scan revealed a longstanding chronic right UPJ obstruction with a normal ureter. No renal or ureteral stones at all as well as a large right renal cyst. She was kept comfortable and admitted to the hospital on IV Rocephin and fluid. His white count today is 28.9000. Creatinine is 1.95. She also was found by CT to have some gallstones, but no evidence of cholecystitis. She feels better today. She had no fever this morning. She still has some tenderness in the right upper quadrant and right CVA. She never had any previous kidney type x-rays and this according to her first episode of problem. IMPRESSION: Right UPJ obstruction with UTI pyelo, possible sepsis. PLAN: I had a long discussion with the patient and her , Tara Meche and her daughter of options: 1. Continue present management and observe for increased problems. 2. Try to put a stent, which may be difficult the way the obstruction looked by CT. 3. Send to [facility] for a percutaneous nephrostomy tube and later on workup the UPJ obstruction with a Lasix scan. She elected to observe and continue present management. We will watch her very closely. If there is any kind of deterioration, we will proceed with the other options. Job ID: [id number] DocumentID: [id number] Dictated Date: 05/22/2022 10:37:24 Behavioral Geneticist Date: 05/22/2022 15:42:00 Dictated By: JEANCARLOS SUBRAMANIAN MD
[2022-05-22 15:46] LABS: CALCIUM 7.8 MG/DL (8.5-10.1)
[2022-05-22 15:50] LABS: CREATININE SERUM 2.22 MG/DL (0.60-1.30)
[2022-05-22 15:52] LABS: MAGNESIUM 1.7 MG/DL (1.6-2.4)
--- NOTE | 2022-05-22 16:01 | Tele-ICU Progress Note ---
Subjective Date Seen by a Provider: May 22, 2022 Time Seen by a Provider: 15:57 Subjective/Events-last exam Magnesium was 1.0, given 2 grams of magnesium sulfate, now Magnesium level 1.7, Cr is 2.22 which is up from 1.95, will give another one gram of magnesium sulfate IV Also WBC has gone up to 38k, no fever, BP good on IV Vancomycin and Cefepime, Has 2/2 gnr in blood and probable Klevsiella in urine Will continue present abx, Urologist is following pt, u/s of kidneys confirms CT finding of obstruction at right UP junction, does not appear to be calcui will continue with present management. Sepsis Event Evaluation Height, Weight, BMI Height: 5'6.00" Weight: 200lbs. 0.0oz. 90.565725cv; 34.85 BMI Method: Focused Exam Lactate Level 05/21/22 18:30: Lactic Acid Level 1.66 05/22/22 07:57: Lactic Acid Level 1.64 Time of Focused Exam: 19:00 Exam Exam Patient acknowledged, consented, and participated in this virtual visit which was conducted using real time audio/video Vital Signs Date Time Temp Pulse Resp B/P (MAP) Pulse Ox O2 Delivery O2 Flow Rate FiO2 05/22/22 15:53 92 Nasal Cannula 2.00 05/22/22 15:04 36.7 05/22/22 12:32 80 05/22/22 12:00 79 12 96/62 (73) 93 Nasal Cannula 2.00 05/22/22 11:57 36.2 79 18 99/60 (73) 93 Nasal Cannula 2.00 05/22/22 11:56 94 Nasal Cannula 2.00 05/22/22 11:30 78 32 93/59 (70) 94 Nasal Cannula 2.00 05/22/22 11:00 81 15 98/55 (69) 94 Nasal Cannula 2.00 05/22/22 10:00 89 26 93/57 (69) 93 Nasal Cannula 2.00 05/22/22 09:45 99 18 88/58 (68) 91 Nasal Cannula 2.00 05/22/22 09:30 97 21 96/59 (71) 92 Nasal Cannula 2.00 05/22/22 09:15 98 15 96/80 (85) 92 Nasal Cannula 2.00 05/22/22 09:10 91 Nasal Cannula 1.50 05/22/22 09:00 89 25 93/53 (66) 92 Nasal Cannula 2.00 05/22/22 08:45 93 21 102/41 (61) 90 Nasal Cannula 2.00 05/22/22 08:39 91 Nasal Cannula 2.00 05/22/22 08:32 96 05/22/22 08:31 36.1 97 21 92/50 (64) 90 Nasal Cannula 2.00 05/22/22 08:30 95 11 84/55 (65) 90 Nasal Cannula 2.00 05/22/22 08:22 36.7 105 18 77/48 (58) 95 Nasal Cannula 3.00 05/22/22 08:15 97 11 92/50 (64) 90 Nasal Cannula 2.00 05/22/22 04:28 36.1 107 18 105/57 (73) 90 Nasal Cannula 3.00 05/22/22 00:00 36.0 93 20 141/66 (91) 92 Room Air 05/21/22 23:38 92 Room Air 05/21/22 22:30 38.1 86 92 21 05/21/22 22:08 92 Room Air 05/21/22 21:46 38.1 90 22 146/79 (101) 92 Room Air 05/21/22 21:11 36.4 86 14 150/69 98 Nasal Cannula 2.00 05/21/22 17:15 36.8 83 16 153/77 (102) 91 Room Air 05/21/22 17:15 91 Nasal Cannula 2.00 I & O 05/22/22 07:00 Intake Total 1250 ml Balance 1250 ml Height & Weight Height: 5'6.00" Weight: 200lbs. 0.0oz. 90.350460cb; 34.85 BMI Method: General Appearance: WD/WN, Mild Distress, Obese Respiratory: Chest Non Tender, Lungs Clear, No Respiratory Distress, Decreased Breath Sounds (bilateral) Cardiovascular: Regular Rate, Rhythm, No Edema, No Murmur, Normal Peripheral Pulses Capillary Refill: Less Than 3 Seconds Gastrointestinal: normal bowel sounds, non tender, soft; No distended; guarding (RUQ), tenderness (RUQ AND EPIGASTRIC AREAS); No hernia, No mass Extremity: No Pedal Edema Neurologic/Psychiatric: Alert, Oriented x3 Skin: Normal Color, Warm/Dry Results Lab Laboratory Tests 05/21/22 17:35 05/22/22 05:06 05/22/22 15:19 Assessment/Plan Assessment/Plan continue with abx, give one gram of magnesium sulfate IV Critical Care: Critically Ill Patient Time spent with patient (mins): 15 CHRISTIANO FUENTES MD May 22, 2022 16:01
[2022-05-22 16:12] LABS: ACANTHOCYTES SLIGHT; BAND NEUTROPHILS 21 %; LYMPHOCYTES % (MANUAL) 3 %; MONOCYTES % (MANUAL) 3 %; NEUTROPHILS % (MANUAL) 73 %
[2022-05-22] MEDS ORDERED: MAGNESIUM 1 GM/100 ML IVPB 100 ML IV ONE (16:15)
[2022-05-22] MEDS ORDERED: cefTRIAXone 1 GM PRE-MIX 50 ML IV SCH (17:00)
[2022-05-23] MEDS: CEFEPIME INJECTION 1,000 MG in NS (IVPB) 50 ML IV SCH ×3 (02:20→17:32)
[2022-05-23] MEDS: cloNIDine 0.1 MG (CATAPRES) TAB PO SCH ×5 (04:00→16:18)
[2022-05-23 05:01] LABS: BASOPHILS # (AUTO) 0.1 10^3/uL (0.0-0.1); BASOPHILS % (AUTO) 1 % (0-10); EOSINOPHILS % (AUTO) 0 % (0-10); HEMATOCRIT 34 % (35-52); HEMOGLOBIN 11.4 g/dL (11.5-16.0); LYMPHOCYTES # (AUTO) 1.4 10^3/uL (1.0-4.0); LYMPHOCYTES % (AUTO) 5 % (12-44); MEAN CORPUSCULAR HEMOGLOBIN 30 pg (25-34); MEAN CORPUSCULAR HGB CONC 33 g/dL (32-36); MEAN CORPUSCULAR VOLUME 89 fL (80-99); MEAN PLATELET VOLUME 11.9 fL (9.0-12.2); MONOCYTES # (AUTO) 0.9 10^3/uL (0.0-1.0); MONOCYTES % (AUTO) 3 % (0-12); NEUTROPHILS # (AUTO) 27.7 10^3/uL (1.8-7.8); NEUTROPHILS % (AUTO) 90 % (42-75); PLATELET COUNT 344 10^3/uL (130-400)
[2022-05-23 05:21] LABS: ALBUMIN 2.6 GM/DL (3.2-4.5); BILIRUBIN,TOTAL 0.5 MG/DL (0.1-1.0); CALCIUM 7.8 MG/DL (8.5-10.1); CREATININE SERUM 1.84 MG/DL (0.60-1.30); PHOSPHORUS 2.8 MG/DL (2.3-4.7); POTASSIUM 4.2 MMOL/L (3.6-5.0); TOTAL PROTEIN 5.6 GM/DL (6.4-8.2)
[2022-05-23 05:25] LABS: WHITE BLOOD COUNT 30.9 10^3/uL (4.3-11.0)
[2022-05-23] MEDS: MAGNESIUM 1 GM/100 ML IVPB 100 ML IV SCH (05:55)
[2022-05-23] MEDS: POTASSIUM CL 10MEQ/50ML IVPB 50 ML IV SCH (05:55)
[2022-05-23] MEDS: KCL 20 MEQ TAB (K-DUR) PO SCH (05:56)
[2022-05-23] MEDS: inSUlin ASPART (NovoLOG) 1 UNIT/0.01 ML (CHARGE PER UNIT) SC SCH ×4 (06:00→21:43)
--- NOTE | 2022-05-23 09:03 | Tele-ICU Progress Note ---
Subjective Date Seen by a Provider: May 23, 2022 Subjective/Events-last exam This virtual visit was conducted using real time audio/video. Thank you for asking us to see this patient for respiratory insufficiency due to probable underlying COPD. Admitted w hydronephrosis, obstruction at R UP junction, urosepsis, cholelith. Recent events: Urine growing Kleb., Enterobacter. PE: VSS. O2 sat 93% on 2 LPM. HEENT: No obvious masses, adenopathy or JVD. Chest: clear to auscultation. CV: RRR S1 S2 No murmur or added sounds. Abd: Non-tender. Bowel sounds Y. : Unremarkable. Sousa Y. DEBT RECOVERY OFFICER/psychiatric: Grossly intact. No obvious focal findings. Extremities: No edema. Capillary refill < 3 seconds. Skin: unremarkable. Results: Elevated WCC 30.9, better, BUN 35, Creat 1.84, BG 139 Decreased Hb 11.4 CXR: Hyperinflated, chronic rib #s. Available chart/ vitals / labs / images reviewed. Video assessment done using teleICU camera, rest of exam as per RN. A/P: Respiratory insufficiency: Continue present management with O2 Monitor for increasing oxygenation needs and/or need for intubation or NIV. Critical Care: critically ill patient. Cont. abx, SSI. Arnoldo. Discussed with RN Estela. Asked RN to reach out to eICU if any questions or concerns later. Time spent with patient/coordination of care with other health professionals (mins): 15 Sepsis Event Evaluation Height, Weight, BMI Height: 5'6.00" Weight: 200lbs. 0.0oz. [id number]; 37.03 BMI Method: Focused Exam Lactate Level 05/21/22 18:30: Lactic Acid Level 1.66 05/22/22 07:57: Lactic Acid Level 1.64 Time of Focused Exam: 19:00 Exam Exam Patient acknowledged, consented, and participated in this virtual visit which was conducted using real time audio/video Vital Signs Date Time Temp Pulse Resp B/P (MAP) Pulse Ox O2 Delivery O2 Flow Rate FiO2 05/23/22 08:00 87 23 123/63 (83) 93 Nasal Cannula 2.00 05/23/22 07:33 36.2 05/23/22 07:00 89 05/23/22 07:00 88 25 110/60 (77) 93 Nasal Cannula 2.00 05/23/22 06:00 90 25 93 Nasal Cannula 2.00 05/23/22 05:00 87 24 93 Nasal Cannula 2.00 05/23/22 04:00 86 26 93 Nasal Cannula 2.00 05/23/22 04:00 93 Nasal Cannula 2.00 05/23/22 03:00 92 24 92 Nasal Cannula 2.00 05/23/22 02:00 92 27 111/59 (76) 93 Nasal Cannula 2.00 05/23/22 01:00 91 05/23/22 01:00 92 27 92 Nasal Cannula 2.00 05/23/22 00:00 89 23 113/53 (73) 94 Nasal Cannula 2.00 05/22/22 23:59 92 Nasal Cannula 2.00 05/22/22 23:00 92 29 111/56 (74) 90 Nasal Cannula 2.00 05/22/22 21:00 91 27 118/88 (98) 93 Nasal Cannula 2.00 05/22/22 20:00 83 31 121/63 (82) 93 Nasal Cannula 2.00 05/22/22 20:00 93 Nasal Cannula 2.00 05/22/22 19:37 37.3 05/22/22 19:00 101 05/22/22 19:00 88 24 113/64 (80) 92 Nasal Cannula 2.00 05/22/22 18:00 100 38 98/54 (69) 91 Nasal Cannula 2.00 05/22/22 17:00 84 16 98/61 (73) 92 Nasal Cannula 2.00 05/22/22 16:00 78 20 102/60 (74) 93 Nasal Cannula 2.00 05/22/22 15:53 92 Nasal Cannula 2.00 05/22/22 15:04 36.7 05/22/22 15:00 80 18 97/55 (69) 95 Nasal Cannula 2.00 05/22/22 14:00 80 16 102/49 (66) 94 Nasal Cannula 2.00 05/22/22 13:00 83 14 106/63 (77) 93 Nasal Cannula 2.00 05/22/22 12:32 80 05/22/22 12:00 79 12 96/62 (73) 93 Nasal Cannula 2.00 05/22/22 11:57 36.2 79 18 99/60 (73) 93 Nasal Cannula 2.00 05/22/22 11:56 94 Nasal Cannula 2.00 05/22/22 11:30 78 32 93/59 (70) 94 Nasal Cannula 2.00 05/22/22 11:00 81 15 98/55 (69) 94 Nasal Cannula 2.00 05/22/22 10:00 89 26 93/57 (69) 93 Nasal Cannula 2.00 05/22/22 09:45 99 18 88/58 (68) 91 Nasal Cannula 2.00 05/22/22 09:30 97 21 96/59 (71) 92 Nasal Cannula 2.00 05/22/22 09:15 98 15 96/80 (85) 92 Nasal Cannula 2.00 05/22/22 09:10 91 Nasal Cannula 1.50 05/22/22 09:00 89 25 93/53 (66) 92 Nasal Cannula 2.00 I & O 05/23/22 07:00 Intake Total 2870 ml Output Total 925 ml Balance 1945 ml Height & Weight Height: 5'6.00" Weight: 200lbs. 0.0oz. 90.458150iw; 37.03 BMI Method: General Appearance: No Apparent Distress, WD/WN, Anxious, Obese HEENT: PERRL/EOMI, Normal ENT Inspection, Pharynx Normal Neck: Full Range of Motion, Normal Inspection, Non Tender, Supple, Carotid Bruit Respiratory: Chest Non Tender, Lungs Clear, Normal Breath Sounds, No Accessory Muscle Use, No Respiratory Distress Cardiovascular: Regular Rate, Rhythm, No Edema, No Gallop, No JVD, No Murmur, Normal Peripheral Pulses Capillary Refill: Less Than 3 Seconds Gastrointestinal: normal bowel sounds, non tender, soft; No distended; guarding (RUQ), tenderness (RUQ AND EPIGASTRIC AREAS); No hernia, No mass Extremity: Normal Capillary Refill, Normal Inspection, Normal Range of Motion, Non Tender, No Calf Tenderness, No Pedal Edema Neurologic/Psychiatric: Alert, Oriented x3, No Motor/Sensory Deficits, Normal Mood/Affect Skin: Normal Color, Warm/Dry Lymphatic: No Adenopathy Results Lab Laboratory Tests 05/21/22 17:35 05/22/22 05:06 05/22/22 15:19 05/23/22 04:45 Assessment/Plan Assessment/Plan See free text Critical Care: Critically Ill Patient SVETA DELEON MD May 23, 2022 09:03
[2022-05-23] MEDS: ACETAMINOPHEN 325 MG TABLET PO PRN ×2 (09:19→16:04)
[2022-05-23] MEDS: NS IV 1000 ML 1,000 ML IV SCH ×2 (09:20→21:43)
--- NOTE | 2022-05-23 09:29 | Progress Note - Urology ---
Progress Note-Urology Progress Notes/Assess & Plan Progress/Assessment & Plan LOOKING AND FEELING BETTER. LABS IMPROVING. FEED AND KEEP SAME PLAN. RECHECK LABS IN AM Final Diagnosis RT UPJ OBSTRUCTION AND UTI JEANCARLOS SUBRAMANIAN MD May 23, 2022 09:29
[2022-05-23] MEDS: ENOXAPARIN 40 MG/0.4 ML (LOVENOX) SYR SC SCH (09:50)
[2022-05-23] MEDS: DOCUSATE SODIUM 100 MG (COLACE) CAP PO SCH ×2 (09:51→21:43)
[2022-05-23] MEDS: SENNOSIDES 8.6 MG (SENOKOT) TAB PO SCH ×2 (09:51→21:43)
[2022-05-23] MEDS ORDERED: VANCOMYCIN 1500 MG/NS 500 ML IVPB IV SCH ×2 (11:00)
[2022-05-23] MEDS: NOREPINEPHRINE 8 MG/250 ML 250 ML IV SCH ×2 (11:20→23:34)
--- NOTE | 2022-05-23 12:18 | Progress Note ---
GAB ARANGO 05/23/22 1218: Subjective Date Seen by a Provider: May 23, 2022 Time Seen by a Provider: 11:20 Subjective/Events-last exam Amaya Mcgregor is a 72 yo female admitted to the ICU for sepsis likely secondary to pyelonephritis. The patient on encounter reports she feels improved slightly today; her abdominal pain has lessened in intensity. She states she is fatigued but attributes this to poor sleeping. She does endorse mild back pain and mild headache, but attributes this to her recumbent position for the past 36 hours. She denies any nausea, vomiting, pelvic or low abdominal pain, chest pain, or shortness of breath. The patient's VS are stable on 2L nasal cannula oxygen. The patient's labs are significant for WBC 30.9 (improved from 38.3 at 1519 yesterday), HGB 11.4, Cl 109, CO2 16, BUN 35, Creat 1.84 (improved from 2.22). Magnesium improved to 2.0 this morning. The patient's gallbladder showed hepatomegaly and hepatic steatosis, cholelithiasis, and right-sided hydronephrosis consistent with CT yesterday. Review of Systems General: No Chills HEENT: Head Aches Pulmonary: No Dyspnea, No Cough Cardiovascular: No: Chest Pain Gastrointestinal: Abdominal Pain; No: Nausea, Vomiting Genitourinary: No Dysuria, No Frequency Musculoskeletal: back pain Focused Exam Lactate Level 05/21/22 18:30: Lactic Acid Level 1.66 05/22/22 07:57: Lactic Acid Level 1.64 Time of Focused Exam: 19:00 Objective Exam Last Set of Vital Signs Vital Signs Date Time Temp Pulse Resp B/P (MAP) Pulse Ox O2 Delivery O2 Flow Rate FiO2 05/23/22 12:00 81 22 119/62 (81) 95 Nasal Cannula 2.00 05/23/22 11:43 36.2 05/21/22 22:30 21 Capillary Refill : Less Than 3 Seconds I&O Intake and Output 05/23/22 00:00 Intake Total 2970 ml Output Total 450 ml Balance 2520 ml Intake Oral 1000 ml IV Total 1970 ml Output Urine Total 450 ml # Voids 1 General: Alert, Oriented X3, Cooperative, Mild Distress HEENT: Atraumatic Lungs: Other (diffuse mild ) Heart: Regular Rate, Normal S1, Normal S2, No Murmurs Extremities: No Edema, Normal Pulses Skin: No Rashes, No Breakdown Neuro: Normal Speech Psych/Mental Status: Mental Status NL, Mood NL Results Lab Laboratory Tests 05/22/22 12:13: Glucometer 175H 05/22/22 15:19: White Blood Count 38.3*H, Red Blood Count 4.03, Hemoglobin 11.9, Hematocrit 37, Mean Corpuscular Volume 92, Mean Corpuscular Hemoglobin 30, Mean Corpuscular Hemoglobin Concent 32, Red Cell Distribution Width 15.1H, Platelet Count 374, Mean Platelet Volume 11.6, Immature Granulocyte % (Auto) 5, Neutrophils (%) (Auto) 88H, Lymphocytes (%) (Auto) 5L, Monocytes (%) (Auto) 2, Eosinophils (%) (Auto) 0, Basophils (%) (Auto) 0, Neutrophils # (Auto) 33.6H, Lymphocytes # (Auto) 1.7, Monocytes # (Auto) 0.9, Eosinophils # (Auto) 0.0, Basophils # (Auto) 0.1, Immature Granulocyte # (Auto) 2.0H, Neutrophils % (Manual) 73, Lymphocytes % (Manual) 3, Monocytes % (Manual) 3, Band Neutrophils 21, Acanthocytes SLIGHT, Sodium Level 135, Potassium Level 4.8, Chloride Level 107, Carbon Dioxide Level 20L, Anion Gap 8, Blood Urea Nitrogen 30H, Creatinine 2.22H, Estimat Glomerular Filtration Rate 23, BUN/Creatinine Ratio 14, Glucose Level 189H, Calcium Level 7.8L, Magnesium Level 1.7 05/22/22 15:48: Glucometer 174H 05/22/22 20:09: Glucometer 137H 05/23/22 04:45: White Blood Count 30.9*H, Red Blood Count 3.86, Hemoglobin 11.4L, Hematocrit 34L , Mean Corpuscular Volume 89, Mean Corpuscular Hemoglobin 30, Mean Corpuscular Hemoglobin Concent 33, Red Cell Distribution Width 15.1H, Platelet Count 344, Mean Platelet Volume 11.9, Immature Granulocyte % (Auto) 2, Neutrophils (%) (Auto) 90H, Lymphocytes (%) (Auto) 5L, Monocytes (%) (Auto) 3, Eosinophils (%) (Auto) 0, Basophils (%) (Auto) 1, Neutrophils # (Auto) 27.7H, Lymphocytes # (Auto) 1.4, Monocytes # (Auto) 0.9, Eosinophils # (Auto) 0.0, Basophils # (Auto) 0.1, Immature Granulocyte # (Auto) 0.7H, Sodium Level 136, Potassium Level 4.2, Chloride Level 109H, Carbon Dioxide Level 16L, Anion Gap 11, Blood Urea Nitrogen 35H, Creatinine 1.84H, Estimat Glomerular Filtration Rate 29, BUN/Creatinine Ratio 19, Glucose Level 139H, Calcium Level 7.8L, Corrected Calcium 8.9, Phosphorus Level 2.8, Magnesium Level 2.0, Total Bilirubin 0.5, Aspartate Amino Transf (AST/SGOT) 23, Alanine Aminotransferase (ALT/SGPT) 15, Alkaline Phosphatase 76, Total Protein 5.6L, Albumin 2.6L 05/23/22 06:14: Glucometer 120H 05/23/22 10:29: Glucometer 130H Microbiology 05/21/22 Urine Culture - Preliminary, Resulted Probable Klebsiella/Enterobact 05/21/22 Blood Culture - Preliminary, Resulted Gram Negative Bacillus 1 Radiology Date of Exam:05/22/22 [place] GALLBLADDER [id number] IMPRESSION: 1. Hepatomegaly and hepatic steatosis. 2. Cholelithiasis. 3. Significant right-sided hydronephrosis, correlating with CT study one day earlier. There appears to be marked dilatation of the renal pelvis, perhaps owing to UPJ obstruction. No calculi are detected. Assessment/Plan Assessment/Plan Assess & Plan/Chief Complaint 1. Sepsis/septic shock secondary to pyelonephritis: Continue cefepime regimen. Continue NS. Gram Negative Bacilli on blood culture. 05/23, hypotension has improved, continue current treatment with monitoring. 2. RUQ abdominal pain with right-sided hydronephrosis: Manage pyelonephritis. Consult Dr. Saunders or urology. 3. 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 4. Hypomagnesemia: Continue IV magnesium supplementation. Resolved as of 05/23, magnesium of 2.0. 5. Hypokalemia: Continue oral potassium supplementation. 6. Left basilar atelectasis vs pneumonitis: Continue supplemental O2 via nasal cannula. Monitor patient's respiratory status. 7. Elevated BUN, Creat: Continue IV fluid hydration. Recheck CMP in 24 hours. 8. HLD, HTN, Diabetes: Continue home meds. Clinical Quality Measures Admission Status Admission Dx 1. Sepsis/septic shock secondary to pyelonephritis: Initiate antibiotic regimen. Continue NS. Consider PICC line vs central line placement. Use vasopressors as needed for persistent hypotension. Gram Negative Bacilli on blood culture. 2. RUQ abdominal pain: Obtain abdominal US. Manage pyelonephritis. 3. 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 4. Hypomagnesemia: Initiate IV magnesium supplementation. 5. Hypokalemia: Initiate oral potassium supplementation. 6. Left basilar atelectasis vs pneumonitis: Continue supplemental O2 via nasal cannula. Monitor patient's respiratory status. 7. Elevated BUN, Creat: Continue IV fluid hydration. Recheck CMP in 24 hours. 8. HLD, HTN, Diabetes: Continue home meds. DVT/VTE Risk/Contraindication: Contraindications-Pharm: Other *list below* Other: needs or ROSELYN HERNANDEZ DO 05/24/22 0616: Subjective Review of Systems General: Fatigue, Malaise Objective Exam General: Alert, Oriented X3, Cooperative, No Acute Distress Lungs: Clear to Auscultation, Normal Air Movement Heart: Regular Rate, Normal S1, Normal S2, No Murmurs Psych/Mental Status: Mental Status NL, Mood NL Assessment/Plan Assessment/Plan Assess & Plan/Chief Complaint IV abx IVF Monitor creat PT OT Supervisory-Addendum Brief Verification & Attestation Participated in pt care: history, MDM, physical Personally performed: exam, history, MDM, supervision of care Care discussed with: Medical Student Procedures: n/a Results interpretation: Verified all documentation Verification and Attestation of Medical Student E/M Service A medical student performed and documented this service in my presence. I reviewed and verified all information documented by the medical student and made modifications to such information, when appropriate. I personally performed the physical exam and medical decision making. Roselyn Hernandez, May 24, 2022,06:15 GAB ARANGO May 23, 2022 12:18 ROSELYN HERNANDEZ DO May 24, 2022 06:16
--- NOTE | 2022-05-23 14:01 | Physical Therapy Evaluation ---
PT Evaluation-General Medical Diagnosis Admission Date May 22, 2022 at 09:52 Medical Diagnosis: Sepsis Onset Date: May 21, 2022 Therapy Diagnosis Therapy Diagnosis: Impaired Mobility Height/Weight Height (Feet): 5 Height (Inches): 6.00 Weight (Pounds): 200 Weight (Ounces): 0.0 Precautions Precautions/Isolations: Fall Prevention, Standard Precautions Weight Bear Status Right Lower Extremity: Right Full Weight Bearing Left Lower Extremity: Left Full Weight Bearing Referral Physician: Jemal Reason for Referral: Evaluation/Treatment Medical History Additional Medical History Surgeries: Yes Eye Surgery Respiratory: Yes (SUSPECTED COPD/BURGESS/O2 SATS DROP WITH EXERTION) Cardiac: Yes High Cholesterol, Hypertension Neurological: No Genitourinary: No Gastrointestinal: Yes Polyps Musculoskeletal: No Endocrine: Yes (NOT CURRENTLY TAKING MEDICATION) Diabetes, Non-Insulin dep HEENT: Yes (BILAT CATARACT SURGERY 07/2018) Cataract Cancer: No Psychosocial: No Integumentary: No Blood Disorders: No Reviewed History: Yes Social History Home: Single Level Current Living Status: Spouse Entry Into Home: Stairs With Railing PT Steps Into Home: 4 Prior Prior Level of Function SCALE: Activities may be completed with or without assistive devices. 4-Sroceelfzy-yfxtsub completes the activity by him/herself with no assistance from a helper. 5-Set-up or Clean-up Assistance-helper sets up or cleans up; patient completes activity. Albin assists only prior to or following the activity. 4-Supervision or Touching Assistance-helper provides verbal cues and/or touching/steadying and/or contact guard assistance as patient completes activity. Assistance may be provided throughout the activity or intermittently. 3-Partial/Moderate Assistance-helper does LESS THAN HALF the effort. Albin lifts, holds or supports trunk or limbs, but provides less than half the effort. 2-Substantial/Maximal Assistance-helper does MORE THAN HALF the effort. Albin lifts or holds trunk or limbs and provides more than half the effort. 2-Narekbeln-ejbfyn does ALL the effort. Patient does none of the effort to complete the activity. Or, the assistance of 2 or more helpers is required for the patient to complete the activity. If activity was not attempted, code reason: 7-Patient Refused. 9-Not Applicable-not attempted and the patient did not perform the activity before the current illness, exacerbation or injury. 10-Not Attempted due to Environmental Limitations-(lack of equipment, weather restraints, etc.). 88-Not Attempted due to Medical Conditions or Safety Concerns. Bed Mobility: 6 Transfers (B,C,W/C): 6 Gait: 6 Stairs: 6 Indoor Mobility (Ambulation): Independent Stairs: Independent Prior Devices Use: None PT Evaluation-Current Subjective Patient in bed pre-tx, reports pain 4/10 in R Lower Abdomen, agrees to PT. Pt/Family Goals Return home to independence Objective Patient Orientation: Person, Place, Situation Attachments: Oxygen, Sousa Catheter, IV ROM/Strength ROM Lower Extremities BLE AROM grossly WNL Strength Lower Extremities BLE grossly 4+/5 Integumentary/Posture Bladder Incontinence: Yes Sensory Vision: Wears Glasses Hearing: Functional Sensation Right Lower Extremit: Intact Sensation Left Lower Extremity: Intact Transfers Roll Left to Right (QC): 4 (SBA) Sit to Lying (QC): 4 (SBA) Lying to Sitting/Side of Bed(Q: 4 (SBA) Sit to Stand (QC): 4 (CGA) Chair/Txx-ur-Nbxit Xfer(QC): 4 (CGA) SBA with bed mobility, CGA with transfers Gait Does the Patient Walk?: Yes Mode of Locomotion: Walk Anticipated Mode of Locomotion: Walk Distance: 5' Gait Assistive Device: FWW Comments/Gait Description CGA, Patient walks steady with FWW and decent posture. She had some dizziness with qds-cn-exanj, but cleared up quickly. Balance Sitting Static: Normal Sitting Dynamic: Normal Standing Static: Normal Standing Dynamic: Normal Treatment Ambulation, bed mobility, transfers Assessment/Needs Patient steady but has some decreased BLE strength. Patient gets SOB with activity but verbal cueing to take deep breaths helps the patient recover. Patient in recliner post-tx with nurse call in reach, tray, phone, in room, all needs met. Rehab Potential: Fair PT Chemical Plant Manager Goals Chemical Plant Manager Goals PT Correction Goals Time Frame: May 30, 2022 Roll Left & Right (QC): 6 Sit to Lying (QC): 6 Lying-Sitting on Side/Bed(QC): 6 Sit to Stand (QC): 6 Chair/Wtm-yh-Qmljh Xfer(QC): 6 Toilet Transfer (QC): 6 Car Transfer (QC): 6 Does the Patient Walk: Yes Walk 10 feet (QC): 6 Walk 50ft with 2 Turns (QC): 6 Walk 150 ft (QC): 6 PT Plan Problem List Problem List: Activity Tolerance, Functional Strength, Safety, Balance, Gait, Transfer, Bed Mobility, ROM Treatment/Plan Treatment Plan: Continue Plan of Care Treatment Plan: Bed Mobility, Education, Functional Activity Lito, Functional Strength, Gait, Safety, Therapeutic Exercise, Transfers Treatment Duration: May 30, 2022 Frequency: 6 times per week Estimated Hrs Per Day: .25 hour per day Patient and/or Family Agrees t: Yes Safety Risks/Education Patient Education: Gait Training, Transfer Techniques, Correct Positioning, Safety Issues Teaching Recipient: Patient Teaching Methods: Demonstration, Discussion Response to Teaching: Reinforcement Needed Time Time In: 1343 Time Out: 1353 DATE: May 23, 2022 Total Billed Treatment Time: 10 Total Billed Treatment 1 visit APOLINAR GUIDO PT May 23, 2022 14:01
--- NOTE | 2022-05-23 14:02 | Occupational Therapy Eval ---
OT Evaluation-General/PLF Medical Diagnosis Admission Date May 22, 2022 at 09:52 Medical Diagnosis: cholelithiasis, hydronephrosis, sepsis Onset Date: May 22, 2022 Therapy Diagnosis Therapy Diagnosis: reduced adl status Height/Weight Height (Feet): 5 Height (Inches): 6.00 Weight (Pounds): 200 Weight (Ounces): 0.0 Precautions Precautions/Isolations: Fall Prevention, Standard Precautions Referral Referral Reason: Evaluation/Treatment Medical History Pertinent Medical History: DM, HTN Current History Pt presents to hospital with R upper abdominal pain radiating to R flank. Found to have hydronephrosis. Per patient, she lives in a single story home with her spouse. She was indep with adls and iadls prior to admission. She was not using any AD at baseline. Reviewed History: Yes Social History Home: Single Level Current Living Status: Spouse Entry Into Home: Stairs With Railing Steps Into Home: 4 ADL-Prior Level of Function SCALE: Activities may be completed with or without assistive devices. 7-Fucfzbnyzx-wxnqdwt completes the activity by him/herself with no assistance from a helper. 5-Set-up or Clean-up Assistance-helper sets up or cleans up; patient completes activity. Lankin assists only prior to or following the activity. 4-Supervision or Touching Assistance-helper provides verbal cues and/or touching/steadying and/or contact guard assistance as patient completes activity. Assistance may be provided throughout the activity or intermittently. 3-Partial/Moderate Assistance-helper does LESS THAN HALF the effort. Lankin lifts, holds or supports trunk or limbs, but provides less than half the effort. 2-Substantial/Maximal Assistance-helper does MORE THAN HALF the effort. Lankin lifts or holds trunk or limbs and provides more than half the effort. 4-Sgingjzil-hexyqk does ALL the effort. Patient does none of the effort to complete the activity. Or, the assistance of 2 or more helpers is required for the patient to complete the activity. If activity was not attempted, code reason: 7-Patient Refused. 9-Not Applicable-not attempted and the patient did not perform the activity before the current illness, exacerbation or injury. 10-Not Attempted due to Environmental Limitations-(lack of equipment, weather restraints, etc.). 88-Not Attempted due to Medical Conditions or Safety Concerns. Self Care: Independent Functional Cognition: Independent DME/Equipment: Bath Chair, Shower Drive Self: Yes OT Current Status Subjective Pt reports R sided abdominal pain as 4/10 at rest. Appearance Pt left sitting in recliner, all needs within reach, spouse in the room at OT departure. Mental Status/Objective Patient Orientation: Person, Place, Situation Attachments: Sousa Catheter, IV, Oxygen, SCD's, Telemetry Current Glasses/Contacts: Yes Hearing Aids: No Dentures/Partials: No Hand Dominance: Right ADL-Treatment Eating (QC): 6 Oral Hygiene (QC): 5 Lower Body Dressing (QC): 2 On/Off Footwear (QC): 1 Pt reclined in bed eating lunch at therapy arrival. She reports her spouse took her oxygen off to "see what would happen." "It's ok, my is a doctor." Pt remained at >93% on room air, RN notified. Supine>sit: SBA, extra time due to c/o pain. Good sitting balance at edge. Pt declines attempting footwear secondary to pain with movement. Thus, dependent to don socks. At this time, pt would require assistance to thread BLE's into pants secondary to abdominal pain with bending. Sit<>stand: SBA. No unsteadiness observed in standing. Pt likely able to perform clothing management without difficulty. She reports mild dizziness upon standing. She ambulated short distance to chair with SBA. Education OT Patient Education: Correct positioning, Purpose of tx/functional activities, Safety issues Teaching Recipient: Patient, Family Teaching Methods: Demonstration, Discussion Response to Teaching: Verbalize Understanding, Reinforcement Needed OT Road Packer Operator Goals Snf Goals Time Frame: May 30, 2022 Eating (QC): 6 Oral Hygiene (QC): 6 Toileting Hygiene (QC): 6 Shower/Bathe Self (QC): 4 Upper Body Dressing (QC): 5 Lower Body Dressing (QC): 5 On/Off Footwear (QC): 5 Additional Goals: 1-Demonstrate ADL Tasks, 2-Verbalize Understanding, 3- ImproveStrength/Lito 1=Demonstrate adherence to instructed precautions during ADL tasks. 2=Patient will verbalize/demonstrate understanding of assistive devices/modifications for ADL. 3=Patient will improve strength/tolerance for activity to enable patient to perform ADL's. OT Education/Plan Problem List/Assessment Assessment: Decreased Activ Tolerance, Impaired I ADL's, Impaired Self-Care Skills Discharge Recommendations Plan/Recommendations: Continue POC Target Placement ongoing assessment, anticipate home with family pending progress Treatment Plan/Plan of Care Treatment,Training & Education: Yes Patient would benefit from OT for education, treatment and training to promote independence in ADL's, mobility, safety and/or upper extremity function for ADL's. Plan of Care: ADL Retraining, Functional Mobility, UE Funct Exercise/Act Treatment Duration: May 30, 2022 Frequency: 3 times per week (3-5x/week) Estimated Hrs Per Day: .25 hour per day Time Start Time: 13:35 Stop Time: 13:53 DATE: May 23, 2022 Total Time Billed (hr/min): 18 Billed Treatment Time 1 visit Che Andrade OT May 23, 2022 14:02
[2022-05-23] MEDS ORDERED: cloNIDine 0.1 MG (CATAPRES) TAB PO PRN (18:30)
[2022-05-24] MEDS: CEFEPIME INJECTION 1,000 MG in NS (IVPB) 50 ML IV SCH ×3 (01:06→16:52)
[2022-05-24 05:12] LABS: BASOPHILS # (AUTO) 0.1 10^3/uL (0.0-0.1); BASOPHILS % (AUTO) 0 % (0-10); EOSINOPHILS # (AUTO) 0.1 10^3/uL (0.0-0.3); EOSINOPHILS % (AUTO) 0 % (0-10); HEMATOCRIT 34 % (35-52); HEMOGLOBIN 11.3 g/dL (11.5-16.0); LYMPHOCYTES # (AUTO) 1.4 10^3/uL (1.0-4.0); LYMPHOCYTES % (AUTO) 6 % (12-44); MEAN CORPUSCULAR HEMOGLOBIN 29 pg (25-34); MEAN CORPUSCULAR HGB CONC 33 g/dL (32-36); MEAN CORPUSCULAR VOLUME 88 fL (80-99); MEAN PLATELET VOLUME 11.8 fL (9.0-12.2); MONOCYTES # (AUTO) 0.9 10^3/uL (0.0-1.0); MONOCYTES % (AUTO) 4 % (0-12); NEUTROPHILS % (AUTO) 88 % (42-75); PLATELET COUNT 311 10^3/uL (130-400); WHITE BLOOD COUNT 22.7 10^3/uL (4.3-11.0)
[2022-05-24 05:33] LABS: ALBUMIN 2.6 GM/DL (3.2-4.5); BILIRUBIN,TOTAL 0.6 MG/DL (0.1-1.0); CALCIUM 8.1 MG/DL (8.5-10.1); CREATININE SERUM 1.19 MG/DL (0.60-1.30); MAGNESIUM 1.9 MG/DL (1.6-2.4); PHOSPHORUS 2.1 MG/DL (2.3-4.7); POTASSIUM 3.9 MMOL/L (3.6-5.0); TOTAL PROTEIN 5.9 GM/DL (6.4-8.2)
[2022-05-24] MEDS: MAGNESIUM 1 GM/100 ML IVPB 100 ML IV SCH (06:04)
[2022-05-24] MEDS: POTASSIUM CL 10MEQ/50ML IVPB 50 ML IV SCH (06:04)
[2022-05-24] MEDS: inSUlin ASPART (NovoLOG) 1 UNIT/0.01 ML (CHARGE PER UNIT) SC SCH ×4 (06:05→21:21)
[2022-05-24] MEDS: KCL 20 MEQ TAB (K-DUR) PO SCH (06:05)
--- NOTE | 2022-05-24 06:38 | Progress Note ---
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 Mcgregor Review of Systems General: Fatigue, Malaise Focused Exam Lactate Level 05/21/22 18:30: Lactic Acid Level 1.66 05/22/22 07:57: Lactic Acid Level 1.64 Time of Focused Exam: 19:00 Objective Exam Last Set of Vital Signs Vital Signs Date Time Temp Pulse Resp B/P (MAP) Pulse Ox O2 Delivery O2 Flow Rate FiO2 05/24/22 06:00 89 16 145/80 (101) 97 Nasal Cannula 2.00 05/24/22 00:00 36.6 05/21/22 22:30 21 Capillary Refill : Less Than 3 Seconds I&O Intake and Output 05/24/22 00:00 Intake Total 1755 ml Output Total 1725 ml Balance 30 ml Intake Oral 1755 ml Output Urine Total 1725 ml General: Alert, Oriented X3, Cooperative, No Acute Distress Lungs: Clear to Auscultation, Normal Air Movement Heart: Regular Rate, Normal S1, Normal S2, No Murmurs Psych/Mental Status: Mental Status NL, Mood NL Results Lab Laboratory Tests 05/23/22 10:29: Glucometer 130H 05/23/22 15:48: Glucometer 163H 05/23/22 20:57: Glucometer 161H 05/24/22 05:00: White Blood Count 22.7H, Red Blood Count 3.84, Hemoglobin 11.3L, Hematocrit 34L, Mean Corpuscular Volume 88, Mean Corpuscular Hemoglobin 29, Mean Corpuscular Hemoglobin Concent 33, Red Cell Distribution Width 15.3H, Platelet Count 311, Mean Platelet Volume 11.8, Immature Granulocyte % (Auto) 1, Neutrophils (%) (Auto) 88H, Lymphocytes (%) (Auto) 6L, Monocytes (%) (Auto) 4, Eosinophils (%) (Auto) 0, Basophils (%) (Auto) 0, Neutrophils # (Auto) 20.0H, Lymphocytes # (Auto) 1.4, Monocytes # (Auto) 0.9, Eosinophils # (Auto) 0.1, Basophils # (Auto) 0.1, Immature Granulocyte # (Auto) 0.2H, Sodium Level 134L, Potassium Level 3.9, Chloride Level 106, Carbon Dioxide Level 17L, Anion Gap 11, Blood Urea Nitrogen 26H, Creatinine 1.19, Estimat Glomerular Filtration Rate 48, BUN/Creatinine Ratio 22, Glucose Level 134H, Calcium Level 8.1L, Corrected Calcium 9.2, Phosphorus Level 2.1L, Magnesium Level 1.9, Total Bilirubin 0.6, Aspartate Amino Transf (AST/SGOT) 22, Alanine Aminotransferase (ALT/SGPT) 18, Alkaline Phosphatase 127, Total Protein 5.9L, Albumin 2.6L Microbiology 05/22/22 MRSA Screen - Final, Complete MRSA not isolated 05/21/22 Urine Culture - Preliminary, Resulted Klebsiella pneumoniae 05/21/22 Blood Culture - Preliminary, Resulted Klebsiella pneumoniae Testing In Progress Assessment/Plan Assessment/Plan Assess & Plan/Chief Complaint 1. Sepsis/septic shock secondary to pyelonephritis: Initiate antibiotic regimen. Continue NS. Consider PICC line vs central line placement. Use vasopressors as needed for persistent hypotension. Gram Negative Bacilli on blood culture.-Now moving to fourth floor 2. RUQ abdominal pain: Obtain abdominal US. Manage pyelonephritis. 3. 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 4. Hypomagnesemia: Initiate IV magnesium supplementation. 5. Hypokalemia: Initiate oral potassium supplementation. 6. Left basilar atelectasis vs pneumonitis: Continue supplemental O2 via nasal cannula. Monitor patient's respiratory status. 7. Elevated BUN, Creat: Continue IV fluid hydration. Recheck CMP in 24 hours. 8. HLD, HTN, Diabetes: Continue home meds. Diagnosis/Problems Diagnosis/Problems (1) Sepsis (2) Urinary tract infection Status: Acute (3) Renal insufficiency Status: Acute Clinical Quality Measures Admission Status Admission Dx Assessment: Septic shock from pyelo Bacteremia from Klebsiella CHAS Hydronephrosis appears congential? Hypomag Hypo K DM Plan: IVF Cefepime ICU DVT/VTE Risk/Contraindication: Contraindications-Pharm: Other *list below* Other: needs or SONI HERNANDEZ DO May 24, 2022 06:38
[2022-05-24] MEDS: DOCUSATE SODIUM 100 MG (COLACE) CAP PO SCH ×2 (08:52→21:21)
[2022-05-24] MEDS: SENNOSIDES 8.6 MG (SENOKOT) TAB PO SCH ×2 (08:52→21:21)
[2022-05-24] MEDS: ENOXAPARIN 40 MG/0.4 ML (LOVENOX) SYR SC SCH (08:53)
--- NOTE | 2022-05-24 08:56 | Tele-ICU Progress Note ---
Subjective Date Seen by a Provider: May 24, 2022 Subjective/Events-last exam This virtual visit was conducted using real time audio/video. Thank you for asking us to see this patient for respiratory insufficiency due to probable underlying COPD. Admitted w hydronephrosis, obstruction at R UP junction, urosepsis, cholelith. Recent events: Urine/blood cults growing Kleb. PE: Appears comfortable on camera. VSS. O2 sat 93% on 2 LPM. HEENT: No obvious masses, adenopathy or JVD. Chest: clear to auscultation. CV: RRR S1 S2 No murmur or added sounds. Abd: Non-tender. Bowel sounds Y. : Unremarkable. Sousa Y. TITLE OFFICER/psychiatric: Grossly intact. No obvious focal findings. Extremities: No edema. Capillary refill < 3 seconds. Skin: unremarkable. Results: Elevated WCC 22.7, better, BUN 26 better, BG 161. Decreased Hb 11.3 CXR: Hyperinflated, chronic rib #s. Available chart/ vitals / labs / images reviewed. Video assessment done using teleICU camera, rest of exam as per RN. A/P: Respiratory insufficiency: Continue present management with O2 Monitor for increasing oxygenation needs and/or need for NIV. OK to transfer to avoid MDR ICU organisms. Cont. abx, SSI. Arnoldo. Discussed with RN Estela. Asked RN to reach out to eICU if any questions or concerns later. Time spent with patient/coordination of care with other health professionals (mins): 12 Sepsis Event Evaluation Height, Weight, BMI Height: 5'6.00" Weight: 200lbs. 0.0oz. [id number]; 37.03 BMI Method: Focused Exam Lactate Level 05/21/22 18:30: Lactic Acid Level 1.66 05/22/22 07:57: Lactic Acid Level 1.64 Time of Focused Exam: 19:00 Exam Exam Patient acknowledged, consented, and participated in this virtual visit which was conducted using real time audio/video Vital Signs Date Time Temp Pulse Resp B/P (MAP) Pulse Ox O2 Delivery O2 Flow Rate FiO2 05/24/22 08:11 100 Nasal Cannula 3.00 05/24/22 08:11 Nasal Cannula 1.00 05/24/22 08:00 86 19 146/78 (100) 100 Nasal Cannula 1.00 05/24/22 07:37 36.5 05/24/22 07:00 85 17 143/74 (97) 100 Nasal Cannula 1.00 05/24/22 07:00 85 05/24/22 06:00 89 16 145/80 (101) 97 Nasal Cannula 2.00 05/24/22 05:00 89 21 151/74 (99) 100 Nasal Cannula 2.00 05/24/22 04:00 89 19 144/80 (101) 100 Nasal Cannula 2.00 05/24/22 04:00 96 Nasal Cannula 2.00 05/24/22 03:00 90 23 142/74 (96) 97 Nasal Cannula 2.00 05/24/22 02:18 93 Nasal Cannula 2.00 05/24/22 02:00 92 27 137/72 (93) 91 Nasal Cannula 2.00 05/24/22 01:00 91 28 133/66 (88) 93 Nasal Cannula 2.00 05/24/22 01:00 90 05/24/22 00:00 36.6 05/24/22 00:00 87 26 138/72 (94) 93 Nasal Cannula 2.00 05/23/22 23:59 97 Nasal Cannula 2.00 05/23/22 23:00 86 24 134/75 (94) 92 Nasal Cannula 2.00 05/23/22 22:00 82 23 138/72 (94) 93 Nasal Cannula 2.00 05/23/22 21:00 86 26 133/72 (92) 95 Nasal Cannula 2.00 05/23/22 20:00 85 33 134/66 (88) 95 Nasal Cannula 2.00 05/23/22 20:00 96 Nasal Cannula 2.00 05/23/22 19:40 36.7 05/23/22 19:00 92 05/23/22 19:00 89 20 125/66 (85) 95 Nasal Cannula 2.00 05/23/22 18:00 87 32 115/68 (84) 95 Nasal Cannula 2.00 05/23/22 17:00 89 19 138/72 (94) 96 Nasal Cannula 2.00 05/23/22 16:09 36.7 05/23/22 16:00 95 Nasal Cannula 2.00 05/23/22 16:00 85 20 123/75 (91) 96 Nasal Cannula 2.00 05/23/22 15:00 85 122/65 (84) 95 Nasal Cannula 2.00 05/23/22 14:00 92 27 93 Nasal Cannula 2.00 05/23/22 13:00 80 05/23/22 13:00 85 24 110/58 (75) 94 Nasal Cannula 2.00 05/23/22 12:00 81 22 119/62 (81) 95 Nasal Cannula 2.00 05/23/22 12:00 95 Nasal Cannula 2.00 05/23/22 11:43 36.2 05/23/22 11:00 81 20 110/65 (80) 94 Nasal Cannula 2.00 05/23/22 10:00 84 23 114/62 (79) 94 Nasal Cannula 2.00 05/23/22 09:00 96 27 107/90 (96) 91 Nasal Cannula 2.00 I & O0 05/24/22 07:00 Intake Total 1905 ml Output Total 1850 ml Balance 55 ml Height & Weight Height: 5'6.00" Weight: 200lbs. 0.0oz. [id number]; 37.03 BMI Method: General Appearance: No Apparent Distress, WD/WN, Anxious, Obese HEENT: PERRL/EOMI, Normal ENT Inspection, Pharynx Normal Neck: Full Range of Motion, Normal Inspection, Non Tender, Supple, Carotid Bruit Respiratory: Chest Non Tender, Lungs Clear, Normal Breath Sounds, No Accessory Muscle Use, No Respiratory Distress Cardiovascular: Regular Rate, Rhythm, No Edema, No Gallop, No JVD, No Murmur, Normal Peripheral Pulses Capillary Refill: Less Than 3 Seconds Gastrointestinal: normal bowel sounds, non tender, soft; No distended; guarding (RUQ), tenderness (RUQ AND EPIGASTRIC AREAS); No hernia, No mass Extremity: Normal Capillary Refill, Normal Inspection, Normal Range of Motion, Non Tender, No Calf Tenderness, No Pedal Edema Neurologic/Psychiatric: Alert, Oriented x3, No Motor/Sensory Deficits, Normal Mood/Affect Skin: Normal Color, Warm/Dry Lymphatic: No Adenopathy Results Lab Laboratory Tests 05/22/22 15:19 05/23/22 04:45 05/24/22 05:00 Assessment/Plan Assessment/Plan see free text. Critical Care: Critically Ill Patient SVETA DELEON MD May 24, 2022 08:56
--- NOTE | 2022-05-24 10:46 | Progress Note - Urology ---
Progress Note-Urology Progress Notes/Assess & Plan Progress/Assessment & Plan CONTINUES IMPROVING CLINICALLY AND LAB FRENCH. KEEP SAME PLAN Final Diagnosis UROSEPSIS AND RT UPJ OBSTRUCTION JEANCARLOS SUBRAMANIAN MD May 24, 2022 10:46
--- NOTE | 2022-05-24 13:30 | Physical Therapy Progress Note ---
Therapy Progress Note Attempted therapy intervention at 0901, but pt requested to perform PT later. Returned at 1130 and pt refused a second time due to fatigue. Will resume therapy on Thursday. HAROON GODFREY PT May 24, 2022 13:30
[2022-05-24] MEDS: ACETAMINOPHEN 325 MG TABLET PO PRN ×2 (14:50→21:21)
[2022-05-24 15:44] VITALS: BP 118/73
[2022-05-24] MEDS: FENOFIBRATE 134 MG (LOFIBRA) CAPSULE PO SCH (21:21)
[2022-05-25] MEDS: CEFEPIME INJECTION 1,000 MG in NS (IVPB) 50 ML IV SCH (04:34)
[2022-05-25 04:52] LABS: BASOPHILS # (AUTO) 0.1 10^3/uL (0.0-0.1); BASOPHILS % (AUTO) 0 % (0-10); EOSINOPHILS # (AUTO) 0.1 10^3/uL (0.0-0.3); EOSINOPHILS % (AUTO) 0 % (0-10); HEMATOCRIT 34 % (35-52); HEMOGLOBIN 11.6 g/dL (11.5-16.0); LYMPHOCYTES # (AUTO) 0.9 10^3/uL (1.0-4.0); LYMPHOCYTES % (AUTO) 4 % (12-44); MEAN CORPUSCULAR HEMOGLOBIN 29 pg (25-34); MEAN CORPUSCULAR HGB CONC 34 g/dL (32-36); MEAN CORPUSCULAR VOLUME 87 fL (80-99); MONOCYTES % (AUTO) 8 % (0-12); NEUTROPHILS # (AUTO) 21.5 10^3/uL (1.8-7.8); NEUTROPHILS % (AUTO) 86 % (42-75); PLATELET COUNT 310 10^3/uL (130-400)
[2022-05-25 05:18] LABS: ALBUMIN 2.5 GM/DL (3.2-4.5); BILIRUBIN,TOTAL 0.9 MG/DL (0.1-1.0); CALCIUM 8.5 MG/DL (8.5-10.1); CREATININE SERUM 1.07 MG/DL (0.60-1.30); MAGNESIUM 1.7 MG/DL (1.6-2.4); POTASSIUM 3.9 MMOL/L (3.6-5.0); TOTAL PROTEIN 5.8 GM/DL (6.4-8.2)
[2022-05-25] MEDS: inSUlin ASPART (NovoLOG) 1 UNIT/0.01 ML (CHARGE PER UNIT) SC SCH ×4 (05:20→22:27)
--- NOTE | 2022-05-25 06:18 | Progress Note ---
Subjective Date Seen by a Provider: May 25, 2022 Time Seen by a Provider: 11:00 Subjective/Events-last exam Patient still very weak and fatigued IV abx narrowed to Rocephin PT OT ordered wbc count increased from 22 to 25 so will check PCT tomorrow Abscess formation may be causing this Review of Systems General: Fatigue, Malaise Gastrointestinal: Abdominal Pain Focused Exam Lactate Level 05/22/22 07:57: Lactic Acid Level 1.64 Time of Focused Exam: 19:00 Objective Exam Last Set of Vital Signs Vital Signs Date Time Temp Pulse Resp B/P (MAP) Pulse Ox O2 Delivery O2 Flow Rate FiO2 05/25/22 06:02 36.9 05/25/22 04:00 89 20 130/60 (83) 93 Nasal Cannula 2.00 05/24/22 15:44 21 Capillary Refill : Less Than 3 Seconds I&O Intake and Output 05/25/22 00:00 Intake Total 810 ml Output Total 600 ml Balance 210 ml Intake Oral 810 ml Output Urine Total 600 ml # Voids 2 General: Alert, Oriented X3, Cooperative, No Acute Distress, Other (fatigued) Lungs: Clear to Auscultation, Normal Air Movement Heart: Regular Rate Psych/Mental Status: Mental Status NL, Mood NL Results Lab Laboratory Tests 05/24/22 10:47: Glucometer 139H 05/24/22 12:57: Glucometer 131H 05/24/22 15:47: Glucometer 157H 05/24/22 20:55: Glucometer 164H 05/25/22 04:30: White Blood Count 25.0H, Red Blood Count 3.95, Hemoglobin 11.6, Hematocrit 34L, Mean Corpuscular Volume 87, Mean Corpuscular Hemoglobin 29, Mean Corpuscular Hemoglobin Concent 34, Red Cell Distribution Width 15.3H, Platelet Count 310, Mean Platelet Volume 12.0, Immature Granulocyte % (Auto) 2, Neutrophils (%) (Auto) 86H, Lymphocytes (%) (Auto) 4L, Monocytes (%) (Auto) 8, Eosinophils (%) (Auto) 0, Basophils (%) (Auto) 0, Neutrophils # (Auto) 21.5H, Lymphocytes # (Auto) 0.9L, Monocytes # (Auto) 2.0H, Eosinophils # (Auto) 0.1, Basophils # (Auto) 0.1, Immature Granulocyte # (Auto) 0.4H, Sodium Level 134L, Potassium Level 3.9, Chloride Level 103, Carbon Dioxide Level 20L, Anion Gap 11, Blood Urea Nitrogen 21H, Creatinine 1.07, Estimat Glomerular Filtration Rate 55, BUN/Creatinine Ratio 20, Glucose Level 139H, Calcium Level 8.5, Corrected Calcium 9.7, Magnesium Level 1.7, Total Bilirubin 0.9, Aspartate Amino Transf (AST/SGOT) 26, Alanine Aminotransferase (ALT/SGPT) 20, Alkaline Phosphatase 174H , Total Protein 5.8L, Albumin 2.5L Microbiology 05/22/22 MRSA Screen - Final, Complete MRSA not isolated 05/21/22 Urine Culture - Final, Complete Klebsiella pneumoniae 05/21/22 Blood Culture - Final, Complete Klebsiella pneumoniae Assessment/Plan Assessment/Plan Assess & Plan/Chief Complaint 1. Sepsis/septic shock secondary to pyelonephritis: Initiate antibiotic regimen. Hypotension resolved. Gram Negative Bacilli on blood culture.-Now moving to fourth floor 2. RUQ abdominal pain: Obtain abdominal US. Manage pyelonephritis. 3. 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 4. Hypomagnesemia: Initiate IV magnesium supplementation. 5. Hypokalemia: Initiate oral potassium supplementation. 6. Left basilar atelectasis vs pneumonitis: Continue supplemental O2 via nasal cannula. Monitor patient's respiratory status. 7. Elevated BUN, Creat: Continue IV fluid hydration. Recheck CMP in 24 hours. 8. HLD, HTN, Diabetes: Continue home meds. Diagnosis/Problems Diagnosis/Problems (1) Sepsis (2) Urinary tract infection Status: Acute (3) Renal insufficiency Status: Acute Clinical Quality Measures Admission Status Admission Dx Assessment: Septic shock from pyelo Bacteremia from Klebsiella CHAS Hydronephrosis appears congential? Hypomag Hypo K DM Plan: IVF Cefepime ICU DVT/VTE Risk/Contraindication: Contraindications-Pharm: Other *list below* Other: needs or SONI HERNANDEZ DO May 25, 2022 06:18
[2022-05-25] MEDS: MIRABEGRON 25 MG TAB (MYRBETRIQ) PO SCH (08:55)
[2022-05-25] MEDS: LORATADINE (CLARITIN) 10 MG TAB PO SCH (08:55)
[2022-05-25] MEDS: DOCUSATE SODIUM 100 MG (COLACE) CAP PO SCH ×2 (08:55→21:33)
[2022-05-25] MEDS: SENNOSIDES 8.6 MG (SENOKOT) TAB PO SCH ×2 (08:55→21:33)
[2022-05-25] MEDS: ESTRADIOL 1 MG TAB (ESTRACE) PO SCH (08:55)
[2022-05-25] MEDS: ENOXAPARIN 40 MG/0.4 ML (LOVENOX) SYR SC SCH (08:58)
[2022-05-25] MEDS: PANTOPRAZOLE 20 MG TABLET (PROTONIX) PO SCH (08:58)
[2022-05-25] MEDS ORDERED: cefTRIAXone 1 GM PRE-MIX 50 ML IV SCH (09:00)
--- NOTE | 2022-05-25 10:07 | Progress Note - Urology ---
Progress Note-Urology Progress Notes/Assess & Plan Progress/Assessment & Plan CONTINUES BETTER. LESS PAIN AND TENDERNESS. NO GI SX. WBCS AND ALK PHOS. UP. CLINICALLY BETTER. CONTINUE OBSERVE Final Diagnosis UROSEPSIS JEANCARLOS SUBRAMANIAN MD May 25, 2022 10:07
[2022-05-25] MEDS ORDERED: LACTULOSE SYRUP 10GM/15ML (ENULOSE) 30ML UDC PO ONE (11:30)
[2022-05-25] MEDS ORDERED: SENNA W/DOCUSATE (SENOKOT S) TABLET PO ONE (11:30)
[2022-05-25] MEDS ORDERED: BISACODYL 10 MG SUPP (DULCOLAX) PR PRN (11:30)
[2022-05-25] MEDS: ACETAMINOPHEN 325 MG TABLET PO PRN (16:20)
[2022-05-25] MEDS: FENOFIBRATE 134 MG (LOFIBRA) CAPSULE PO SCH (22:27)
[2022-05-26 05:31] LABS: BASOPHILS # (AUTO) 0.1 10^3/uL (0.0-0.1); BASOPHILS % (AUTO) 1 % (0-10); EOSINOPHILS # (AUTO) 0.1 10^3/uL (0.0-0.3); EOSINOPHILS % (AUTO) 0 % (0-10); HEMATOCRIT 31 % (35-52); HEMOGLOBIN 10.7 g/dL (11.5-16.0); LYMPHOCYTES # (AUTO) 1.6 10^3/uL (1.0-4.0); LYMPHOCYTES % (AUTO) 6 % (12-44); MEAN CORPUSCULAR HEMOGLOBIN 29 pg (25-34); MEAN CORPUSCULAR HGB CONC 34 g/dL (32-36); MEAN CORPUSCULAR VOLUME 86 fL (80-99); MEAN PLATELET VOLUME 11.8 fL (9.0-12.2); MONOCYTES # (AUTO) 2.7 10^3/uL (0.0-1.0); MONOCYTES % (AUTO) 10 % (0-12); NEUTROPHILS # (AUTO) 22.1 10^3/uL (1.8-7.8); NEUTROPHILS % (AUTO) 79 % (42-75); PLATELET COUNT 294 10^3/uL (130-400); WHITE BLOOD COUNT 28.1 10^3/uL (4.3-11.0)
[2022-05-26 05:48] LABS: ALBUMIN 2.4 GM/DL (3.2-4.5); BILIRUBIN,TOTAL 1.1 MG/DL (0.1-1.0); CALCIUM 8.5 MG/DL (8.5-10.1); CREATININE SERUM 1.04 MG/DL (0.60-1.30); MAGNESIUM 1.7 MG/DL (1.6-2.4); POTASSIUM 3.7 MMOL/L (3.6-5.0); TOTAL PROTEIN 5.8 GM/DL (6.4-8.2)
[2022-05-26] MEDS: inSUlin ASPART (NovoLOG) 1 UNIT/0.01 ML (CHARGE PER UNIT) SC SCH ×4 (05:50→20:10)
[2022-05-26] MEDS: ESTRADIOL 1 MG TAB (ESTRACE) PO SCH (08:00)
[2022-05-26] MEDS: PANTOPRAZOLE 20 MG TABLET (PROTONIX) PO SCH (08:00)
[2022-05-26] MEDS: MIRABEGRON 25 MG TAB (MYRBETRIQ) PO SCH (08:00)
[2022-05-26] MEDS: LORATADINE (CLARITIN) 10 MG TAB PO SCH (08:00)
[2022-05-26] MEDS: cefTRIAXone 2,000 MG/NS 50 ML IVPB IV SCH ×2 (08:29)
--- NOTE | 2022-05-26 08:44 | Consultation - Surgery ---
ALEKS REDMOND 05/26/22 0844: History of Present Illness History of Present Illness Patient Consulted On(too/time) 05/26/22 08:28 Date Seen by Provider: May 26, 2022 Time Seen by Provider: 07:30 History of Present Illness Amaya Mcgregor is a 72 yo female with a history of COPD, UPJ obstruction, who presented to the ICU from ER on 05/22 for evaluation and management of sepsis 2/2 to UTI. Upon presentation, she reported suddenly awaking at 0500 to 7/10 RUQ pain, which radiated to the R flank, worsened with ambulation, and improved with rest. Patient states she has had fever, chills, and exquisitely tender R upper abdomen, but she denies any nausea or vomiting. She had a bowel movement last night, and has been on a regular diet, though she reports that she has no appetite. Amaya can ambulate to the bathroom with assistance, and has been diligently utilizing her incentive spirometer. Over the course of work-up, gall bladder ultrasound revealed cholelithiasis, for which a surgery consult was placed. Allergies and Home Medications Allergies Coded Allergies: adhesive tape (Verified Allergy, Unknown, 07/13/18) Patient Home Medication List Home Medication List Reviewed: Yes Atorvastatin Calcium (Atorvastatin Calcium) 40 Mg Tablet, 40 MG PO DAILY, (Reported) Entered as Reported by: RASHAD VAUGHAN on 07/13/18 1257 Last Action: Continued Cetirizine HCl (Zyrtec) 10 Mg Tablet, 10 MG PO DAILY, (Reported) Entered as Reported by: ANDRES SWENSON on 05/22/221516 Last Action: Converted Esomeprazole Magnesium (Nexium 24Hr) 20 Mg Tablet.dr, 20 MG PO DAILY, (Reported) Entered as Reported by: ANDRES SWENSON on 05/22/221516 Last Action: Converted Estradiol (Estradiol Tablet) 0.5 Mg Tablet, 0.5 MG PO DAILY, (Reported) Entered as Reported by: RASHAD VAUGHAN on 07/13/18 1257 Last Action: Converted Fenofibrate Nanocrystallized (Fenofibrate) 145 Mg Tablet, 145 MG PO DAILY, (Reported) Entered as Reported by: RASHAD VAUGHAN on 07/13/18 1257 Last Action: Converted Irbesartan/Hydrochlorothiazide (Irbesartan-Hctz 300-12.5 mg Tb) 1 Each Tablet, 1 EACH PO DAILY, (Reported) Entered as Reported by: RASHAD VAUGHAN on 07/13/18 1257 Last Action: Held Mirabegron (Myrbetriq) 50 Mg Tab.er.24h, 50 MG PO DAILY, (Reported) Entered as Reported by: ANDRES SWENSON on 05/22/22 1514 Last Action: Converted Tramadol HCl (Tramadol HCl) 50 Mg Tablet, 50 MG PO Q6H PRN for PAIN-MODERATE (5- 7), (Reported) Entered as Reported by: RASHAD VAUGHAN on 07/13/18 1257 Last Action: Continued Discontinued Medications Mirabegron (Myrbetriq) 25 Mg Tab.er.24h, 25 MG PO DAILY, (Reported) Discontinued Reason: Duplicate Order Entered as Reported by: RASHAD VAUGHAN on 07/13/18 1257 Last Action: Discontinued Naltrexone HCl/Bupropion HCl (Contrave ER 8-90 mg Tablet) 1 Each Tablet.er, 1 EACH PO DAILY, (Reported) Discontinued Reason: No Longer Taking Entered as Reported by: RASHAD VAUGHAN on 07/13/18 1257 Last Action: Discontinued Past Sdanpaj-Jnochi-Awgbft Hx Patient Social History Smoking Status: Former Smoker Alcohol Use?: Yes Have you traveled recently?: Yes Surgeries History of Surgeries: Yes Surgeries: Eye Surgery, Hysterectomy Respiratory History of Respiratory Disorde: Yes (SUSPECTED COPD/BURGESS/O2 SATS DROP WITH EXERTION) Cardiovascular History of Cardiac Disorders: Yes Cardiac Disorders: High Cholesterol, Hypertension Neurological History of Neurological Disord: No Genitourinary History of Genitourinary Disor: No Gastrointestinal History of Gastrointestinal Di: Yes Gastrointestinal Disorders: Polyps Musculoskeletal History of Musculoskeletal Dis: No Endocrine History of Endocrine Disorders: Yes (NOT CURRENTLY TAKING MEDICATION) Endocrine Disorders: Diabetes, Non-Insulin dep HEENT History of HEENT Disorders: Yes (BILAT CATARACT SURGERY 07/2018) HEENT Disorders: Cataract Cancer History of Cancer: No Psychosocial History of Psychiatric Problem: No Integumentary History of Skin or Integumenta: No Blood Transfusions History of Blood Disorders: No Family Medical History Significant Family History: No Pertinent Family Hx Review of Systems-General Constitutional: dizziness, fever, weakness EENTM: No blurred vision, No double vision Cardiovascular: No chest pain, No edema Gastrointestinal: RUQ, abdominal pain (RUQ), loss of appetite; No nausea, No vomiting Genitourinary: decreased output, frequency Musculoskeletal: back pain Skin: No change in color; dryness Psychiatric/Neurological: Headache, Numbness (R thigh, 2/2 to prolonged supine position) Physical Exam-General Problems Physical Exam Vital Signs Vital Signs - First Documented 05/21/22 05/21/22 17:15 22:30 Temp 36.8 Pulse 83 Resp 16 B/P (MAP) 153/77 (102) Pulse Ox 91 O2 Delivery Nasal Cannula O2 Flow Rate 2.00 FiO2 21 Capillary Refill : Less Than 3 Seconds General Appearance: WD/WN, no apparent distress Eyes: Bilateral Eye Normal Inspection, Bilateral Eye PERRL, Bilateral Eye EOMI HEENT: PERRL/EOMI, normal ENT inspection Neck: non-tender, full range of motion Respiratory: chest non-tender, lungs clear, normal breath sounds Cardiovascular: normal peripheral pulses, regular rate, rhythm, no edema Peripheral Pulses: 2+ Dorsalis Pedis (R), 2+ Radial Pulses (R), 2+ Radial Pulses (L) Gastrointestinal: normal bowel sounds, soft, tenderness Rectal: deferred Back: normal inspection Neurologic/Psychiatric: alert, normal mood/affect, oriented x 3 Skin: normal color, warm/dry Lymphatic: no adenopathy Data Review Labs Laboratory Tests 05/25/22 10:38: Glucometer 153H 05/25/22 15:49: Glucometer 121H 05/25/22 21:21: Glucometer 163H 05/26/22 05:24: White Blood Count 28.1H, Red Blood Count 3.65L, Hemoglobin 10.7L, Hematocrit 31L , Mean Corpuscular Volume 86, Mean Corpuscular Hemoglobin 29, Mean Corpuscular Hemoglobin Concent 34, Red Cell Distribution Width 15.2H, Platelet Count 294, Mean Platelet Volume 11.8, Immature Granulocyte % (Auto) 5, Neutrophils (%) (Auto) 79H, Lymphocytes (%) (Auto) 6L, Monocytes (%) (Auto) 10, Eosinophils (%) (Auto) 0, Basophils (%) (Auto) 1, Neutrophils # (Auto) 22.1H, Lymphocytes # ( Auto) 1.6, Monocytes # (Auto) 2.7H, Eosinophils # (Auto) 0.1, Basophils # (Auto) 0.1, Immature Granulocyte # (Auto) 1.5H, Sodium Level 133L, Potassium Level 3.7, Chloride Level 102, Carbon Dioxide Level 21, Anion Gap 10, Blood Urea Nitrogen 17, Creatinine 1.04, Estimat Glomerular Filtration Rate 57, BUN/Creatinine Ratio 16, Glucose Level 132H, Calcium Level 8.5, Corrected Calcium 9.8, Magnesium Level 1.7, Total Bilirubin 1.1H, Aspartate Amino Transf (AST/SGOT) 23, Alanine Aminotransferase (ALT/SGPT) 22, Alkaline Phosphatase 184H, Total Protein 5.8L, Albumin 2.4L, Procalcitonin 2.90H Microbiology 05/22/22 MRSA Screen - Final, Complete MRSA not isolated 05/21/22 Urine Culture - Final, Complete Klebsiella pneumoniae 05/21/22 Blood Culture - Final, Complete Klebsiella pneumoniae Radiology Date of Exam:05/22/22 US GALLBLADDER [id number] PROCEDURE: US Gallbladder. TECHNIQUE: Multiple real-time grayscale images were obtained over the right upper quadrant in various projections. INDICATION: Cholelithiasis and a hydronephrosis noted on recent CT. Correlation is made with CT study one day earlier. Liver is enlarged at 21 cm. There is increased echogenicity throughout the liver consistent with hepatic steatosis. The portal vein is patent and shows normal direction of flow. Gallbladder contains multiple stones. No significant gallbladder wall thickening or pericholecystic fluid is identified. There is no biliary duct dilatation. Pancreas was obscured by bowel gas. Aorta appears nonaneurysmal. IVC is patent. Imaging of the right renal fossa shows a large cystic lesion in the upper pole approximately 7 cm in size. There also appears to be a cystic lesion more medially which may represent a markedly dilated renal pelvis when correlating with the CT. No definite calculi are detected. No definite ascites is seen. IMPRESSION: 1. Hepatomegaly and hepatic steatosis. 2. Cholelithiasis. 3. Significant right-sided hydronephrosis, correlating with CT study one day earlier. There appears to be marked dilatation of the renal pelvis, perhaps owing to UPJ obstruction. No calculi are detected. Dictated by: Dictated on workstation # [id number] Dict: 05/22/22 1326 Trans: 05/22/22 1603 [facility] [id number] Interpreted by: KOBI HOWARD MD Electronically signed by: KOBI HOWARD MD 05/22/22 1603 Assessment/Plan Assessment/Plan Assessment/Plan Sepsis/septic shock secondary to pyelonephritis On Ceftriaxone RUQ abdominal pain HIDA scan to rule out gallbladder pathology Continue pain management Elevated alkaline phosphatase, likely 2/2 to gall bladder pathology, consider getting GGT level UPJ obstruction: Dr. Saunders was consulted, and suspects it to be congenital. Left basilar atelectasis: Continue supplemental 2 L O2 via nasal cannula Patient counseled extensively to use incentive spirometer 10x/hr Elevated BUN, Creat: Continue IV fluid hydration. Recheck CMP in 24 hours. HLD, HTN, Diabetes: Continue home meds. General debility PT has been consulted Clinical Quality Measures DVT/VTE Risk/Contraindication: Contraindications-Pharm: Other *list below* Other: needs or CHRISTIANO GARCIA DO 05/26/22 2673: History of Present Illness History of Present Illness History of Present Illness Consult requested by Dr. Joaquin for right upper quadrant abdominal pain, cholelithiasis, pyelonephritis. Patient is a 72-year-old female who was admitted for sepsis secondary to UTI/p yelonephritis. Patient has been having right upper quadrant right flank pain. Patient states the pain is about a 7 out of 10 when she has it. This is worse with moving. Laying still does improved to about a 3 or 4 out of 10. She has had fever and just feeling weak. She had a gallbladder ultrasound which demonstrated cholelithiasis but no evidence of cholecystitis and right hy dronephrosis. Patient white count slightly increased today with slight elevation of some liver enzymes and so asked to see patient for further evaluation of gallbladder. Patient has no appetite since she has been sick. Allergies and Home Medications Allergies Coded Allergies: adhesive tape (Verified Allergy, Unknown, 07/13/18) Patient Home Medication List Home Medication List Reviewed: Yes Atorvastatin Calcium (Atorvastatin Calcium) 40 Mg Tablet, 40 MG PO DAILY, (Reported) Entered as Reported by: RASHAD VAUGHAN on 07/13/18 1257 Last Action: Continued Cetirizine HCl (Zyrtec) 10 Mg Tablet, 10 MG PO DAILY, (Reported) Entered as Reported by: ANDRES SWENSON on 05/22/22 1517 Last Action: Converted Esomeprazole Magnesium (Nexium 24Hr) 20 Mg Tablet.dr, 20 MG PO DAILY, (Reported) Entered as Reported by: ANDRES SWENSON on 05/22/22 1517 Last Action: Converted Estradiol (Estradiol Tablet) 0.5 Mg Tablet, 0.5 MG PO DAILY, (Reported) Entered as Reported by: RASHAD VAUGHAN on 07/13/18 1257 Last Action: Converted Fenofibrate Nanocrystallized (Fenofibrate) 145 Mg Tablet, 145 MG PO DAILY, (Reported) Entered as Reported by: RASHAD VAUGHAN on 07/13/18 1257 Last Action: Converted Irbesartan/Hydrochlorothiazide (Irbesartan-Hctz 300-12.5 mg Tb) 1 Each Tablet, 1 EACH PO DAILY, (Reported) Entered as Reported by: RASHAD VAUGHAN on 07/13/18 1257 Last Action: Held Mirabegron (Myrbetriq) 50 Mg Tab.er.24h, 50 MG PO DAILY, (Reported) Entered as Reported by: ANDRES SWENSON on 05/22/22 151 Last Action: Converted Tramadol HCl (Tramadol HCl) 50 Mg Tablet, 50 MG PO Q6H PRN for PAIN-MODERATE (5- 7), (Reported) Entered as Reported by: RASHAD VAUGHAN on 07/13/18 1257 Last Action: Continued Discontinued Medications Mirabegron (Myrbetriq) 25 Mg Tab.er.24h, 25 MG PO DAILY, (Reported) Discontinued Reason: Duplicate Order Entered as Reported by: RASHAD VAUGHAN on 07/13/18 1257 Last Action: Discontinued Naltrexone HCl/Bupropion HCl (Contrave ER 8-90 mg Tablet) 1 Each Tablet.er, 1 EACH PO DAILY, (Reported) Discontinued Reason: No Longer Taking Entered as Reported by: RASHAD VAUGHAN on 07/13/18 1257 Last Action: Discontinued Past Mjsakey-Pbnono-Smaygr Hx Reviewed Nursing Assessment Reviewed/Agree w Nursing PMH: Yes Family Medical History Significant Family History: No Pertinent Family Hx Review of Systems-General Constitutional: dizziness, fever, weakness EENTM: No blurred vision, No double vision Respiratory: No cough, No dyspnea on exertion Cardiovascular: No chest pain, No edema Gastrointestinal: RUQ, abdominal pain (RUQ), loss of appetite; No nausea, No vomiting Genitourinary: decreased output, frequency Musculoskeletal: back pain; No joint pain Skin: No change in color; dryness Psychiatric/Neurological: Denies Anxiety, Denies Depressed, Denies Emotional Problems; Headache, Numbness (R thigh, 2/2 to prolonged supine position) All Other Systems Reviewed Negative Unless Noted: Yes (Negative excepted noted.) Physical Exam-General Problems Physical Exam General Appearance: WD/WN, no apparent distress HEENT: PERRL/EOMI, normal ENT inspection Neck: non-tender, full range of motion Respiratory: chest non-tender, no respiratory distress, no accessory muscle use Cardiovascular: regular rate, rhythm, no edema, no JVD Gastrointestinal: soft, tenderness (Right upper quadrant/right flank) Rectal: deferred Back: normal inspection, no CVA tenderness Extremities: non-tender, normal inspection Neurologic/Psychiatric: alert, normal mood/affect, oriented x 3 Skin: normal color, warm/dry Lymphatic: no adenopathy Assessment/Plan Assessment/Plan Assessment/Plan Right upper quadrant abdominal pain Sepsis secondary to pyelonephritis Cholelithiasis UPJ obstruction right side with hydronephrosis. Patient 72-year-old female she is with urosepsis. White count increasing. Concern for cholecystitis which ultrasound repeated today which demonstrated cholelithiasis without evidence of cholecystitis. She has no gallbladder wall thickening or pericholecystic fluid. HIDA scan to be performed to check for cystic duct patency this is done without ejection fraction. On follow-up the c ystic duct was patent so I do not feel that she has acute cholecystitis. Therefore I think all of her symptoms are related to her pyelonephritis. Supervisory-Addendum Brief Verification & Attestation Participated in pt care: history, MDM, physical Personally performed: exam, history, MDM, supervision of care Care discussed with: Medical Student Procedures: n/a Results interpretation: Verified all documentation Verification and Attestation of Medical Student E/M Service A medical student performed and documented this service in my presence. I reviewed and verified all information documented by the medical student and made modifications to such information, when appropriate. I personally performed the physical exam and medical decision making. Christiano Garcia, May 26, 2022,18:48 ALEKS REDMOND May 26, 2022 08:44 CHRISTIANO GARCIA DO May 26, 2022 18:43
--- NOTE | 2022-05-26 09:38 | Physical Therapy Daily Note ---
PT Daily Note-Current Subjective Patient requires much encouragement to participate with PT. Pain Numeric Pain Scale: 10-Worst Possible Pain Location: Right Location Body Site: Side Pain Description: Stabbing, Sharp Section J - Health Conditions 1. Rarely or not at all 2. Occasionally 3. Frequently 4. Almost constantly 8. Unable to answer Pain Effect on Sleep: 4 Pain Interference with Therapy: 4 Pain Interference w/Day-to-Day: 4 Mental Status Patient Orientation: Normal For Age Attachments: Oxygen Transfers SCALE: Activities may be completed with or without assistive devices. 8-Nepiiiucuq-jbdzokc completes the activity by him/herself with no assistance from a helper. 5-Set-up or Clean-up Assistance-helper sets up or cleans up; patient completes activity. [place] assists only prior to or following the activity. 4-Supervision or Touching Assistance-helper provides verbal cues and/or touching/steadying and/or contact guard assistance as patient completes activity. Assistance may be provided throughout the activity or intermittently. 3-Partial/Moderate Assistance-helper does LESS THAN HALF the effort. [place] lifts, holds or supports trunk or limbs, but provides less than half the effort. 2-Substantial/Maximal Assistance-helper does MORE THAN HALF the effort. [place] lifts or holds trunk or limbs and provides more than half the effort. 7-Kklnlpmvj-ipohdg does ALL the effort. Patient does none of the effort to complete the activity. Or, the assistance of 2 or more helpers is required for the patient to complete the activity. If activity was not attempted, code reason: 7-Patient Refused. 9-Not Applicable-not attempted and the patient did not perform the activity before the current illness, exacerbation or injury. 10-Not Attempted due to Environmental Limitations-(lack of equipment, weather restraints, etc.). 88-Not Attempted due to Medical Conditions or Safety Concerns. Lying to Sitting/Side of Bed(Q: 4 Sit to Stand (QC): 4 Chair/Krq-ja-Sfkgg Xfer(QC): 4 Weight Bearing Right Lower Extremity: Right Full Weight Bearing Left Lower Extremity: Left Full Weight Bearing Gait Training Distance: 100' Walk 10 feet (QC): 4 Walk 50 ft with 2 Turns(QC): 4 Gait Assistive Device: FWW very slow with frequent stops due to right side pain. Exercises Seated Therapy Exercises: Ankle pumps, Long arc quads, Hip flexion Seated Reps: 15 Assessment Patient up in recliner with needs met. PT to continue to increase activity as tolerated by patient. PT Usp Goals Medical Research Assistant Goals PT Medical Research Assistant Goals Time Frame: May 30, 2022 Roll Left & Right (QC): 6 Sit to Lying (QC): 6 Lying-Sitting on Side/Bed(QC): 6 Sit to Stand (QC): 6 Chair/Vdb-um-Iovkh Xfer(QC): 6 Toilet Transfer (QC): 6 Car Transfer (QC): 6 Does the Patient Walk: Yes Walk 10 feet (QC): 6 Walk 50ft with 2 Turns (QC): 6 Walk 150 ft (QC): 6 PT Plan Treatment/Plan Treatment Plan: Continue Plan of Care (810) Treatment Plan: Bed Mobility, Education, Functional Activity Lito, Functional Strength, Gait, Safety, Therapeutic Exercise, Transfers Treatment Duration: May 30, 2022 Frequency: 6 times per week Estimated Hrs Per Day: .25 hour per day Patient and/or Family Agrees t: Yes Time Time In: 810 Time Out: 825 DATE: May 26, 2022 Total Billed Treatment Time: 15 Total Billed Treatment 1 visit FA 15 min RAH HOU PT May 26, 2022 09:38
--- NOTE | 2022-05-26 10:04 | Diagnostic Imaging Report ---
EXAMINATION: US Abdomen limited. TECHNIQUE: Multiple real-time grayscale images were obtained over the right upper quadrant in various projections. REASON FOR EXAM: Abdominal pain. COMPARISON: 05/22/2022. FINDINGS: The liver is enlarged with increased echogenicity throughout. No focal hepatic lesions. No intrahepatic biliary dilatation is present. The common bile duct is obscured due to overlapping bowel gas. The main portal vein is hepatopedal. A mobile gallstone is seen within the gallbladder lumen measuring 0.2 cm. There is no evidence of gallbladder wall thickening or pericholecystic fluid. The sonographic Wilson sign is positive. The pancreas and aorta are not well seen due to overlapping bowel gas. The visualized IVC is unremarkable. There is limited visualization of the kidney due to patient body habitus and bowel gas. A cyst is seen in the superior pole of the right kidney measuring 7.4 cm. IMPRESSION: 1. Cholelithiasis with positive sonographic Wilson sign. Findings are concerning for acute cholecystitis and surgical consultation is recommended. 2. Hepatomegaly with hepatic steatosis. No focal hepatic lesions or ascites. Dictated by: Dictated on workstation # [id number]
--- NOTE | 2022-05-26 10:08 | Occupational Ther Daily Note ---
OT Current Status-Daily Note Subjective Pt alert, sitting in recliner. Pt requires max encouragement to participating in OT session. Pt c/o fatigue and not feeling well. Pt also states that she is having a procedure today to determine if she needs to go to [place] for surgery. Mental Status/Objective Patient Orientation: Person, Place, Time, Situation ADL-Treatment Pt declines to complete any standing activity. Agrees to complete oral care sitting in recliner. Pt able to complete oral care and grooming by self after supplies gathered. After session, pt sitting in recliner with call light/phone in reach. All needs met in room. Therapy Code Descriptions/Definitions Functional [place] Measure: 0=Not Assessed/NA 4=Minimal Assistance 1=Total Assistance 5=Supervision or Setup 2=Maximal Assistance 6=Modified [place] 3=Moderate Assistance 7=Complete IndependenceSCALE: Activities may be completed with or without assistive devices. 9-Cxccilwymi-iszwbrb completes the activity by him/herself with no assistance from a helper. 5-Set-up or Clean-up Assistance-helper sets up or cleans up; patient completes activity. [place] assists only prior to or following the activity. 4-Supervision or Touching Assistance-helper provides verbal cues and/or touching/steadying and/or contact guard assistance as patient completes activit y. Assistance may be provided throughout the activity or intermittently. 3-Partial/Moderate Assistance-helper does LESS THAN HALF the effort. [place] lifts, holds or supports trunk or limbs, but provides less than half the effort. 2-Substantial/Maximal Assistance-helper does MORE THAN HALF the effort. [place] lifts or holds trunk or limbs and provides more than half the effort. 2-Bagugydsl-egeuwi does ALL the effort. Patient does none of the effort to complete the activity. Or, the assistance of 2 or more helpers is required for the patient to complete the activity. If activity was not attempted, code reason: 7-Patient Refused. 9-Not Applicable-not attempted and the patient did not perform the activity before the current illness, exacerbation or injury. 10-Not Attempted due to Environmental Limitations-(lack of equipment, weather restraints, etc.). 88-Not Attempted due to Medical Conditions or Safety Concerns. Eating (QC): 5 OT Group Home Goals Brake Operator Sheet Metal Goals Time Frame: May 30, 2022 Eating (QC): 6 Oral Hygiene (QC): 6 Toileting Hygiene (QC): 6 Shower/Bathe Self (QC): 4 Upper Body Dressing (QC): 5 Lower Body Dressing (QC): 5 On/Off Footwear (QC): 5 Additional Goals: 1-Demonstrate ADL Tasks, 2-Verbalize Understanding, 3- ImproveStrength/Lito 1=Demonstrate adherence to instructed precautions during ADL tasks. 2=Patient will verbalize/demonstrate understanding of assistive devices/modifica tions for ADL. 3=Patient will improve strength/tolerance for activity to enable patient to perform ADL's. OT Education/Plan Problem List/Assessment Assessment: Decreased Activ Tolerance, Impaired Self-Care Skills Discharge Recommendations Plan/Recommendations: Continue POC Treatment Plan/Plan of Care Patient would benefit from OT for education, treatment and training to promote independence in ADL's, mobility, safety and/or upper extremity function for ADL's. Plan of Care: ADL Retraining, Functional Mobility, UE Funct Exercise/Act Treatment Duration: May 30, 2022 Frequency: 3 times per week (3-5x/week) Estimated Hrs Per Day: .25 hour per day Rehab Potential: Fair Time Start Time: 09:50 Stop Time: 09:59 DATE: May 26, 2022 Total Time Billed (hr/min): 9 Billed Treatment Time 1 visit-ADL 1 (9 min) CASSIDY YE May 26, 2022 10:08
[2022-05-26] MEDS: SENNOSIDES 8.6 MG (SENOKOT) TAB PO SCH ×2 (10:22→22:43)
[2022-05-26] MEDS: DOCUSATE SODIUM 100 MG (COLACE) CAP PO SCH ×2 (10:22→22:43)
[2022-05-26] MEDS: NS IV 1000 ML 1,000 ML IV SCH (11:24)
[2022-05-26] MEDS: ENOXAPARIN 40 MG/0.4 ML (LOVENOX) SYR SC SCH (11:24)
--- NOTE | 2022-05-26 12:02 | Progress Note ---
GAB ARANGO 05/26/22 1202: Subjective Date Seen by a Provider: May 26, 2022 Time Seen by a Provider: 10:20 Subjective/Events-last exam Amaya Mcgregor is a 72 yo female who was admitted to the ICU for sepsis with pyelonephritis, transferred to med/surg with stable condition. Patient has been switched off cefepime to ceftriaxone as of yesterday, as per microbiology report. The patient on encounter reports persistent, unchanged abdominal pain. She states she worked with PT earlier today but feels she is having significant difficulty accomplishing the tasks they set forth. She denies any difficulty urinating or stooling and has no other complaints at this time. Patient's labs are significant for WBC 28.1 (25.0 yesterday), HGB 10.7 (11.6 yesterday), Na 133, Total Bilirubin 1.1, Alkaline Phosphatase 184, Total Protein 5.8, Albumin 2.4, Procalcitonin 2.9. US on 05/26 revealed possible acute cholecystitis. Review of Systems General: Fatigue HEENT: No Head Aches Pulmonary: Dyspnea Cardiovascular: No: Chest Pain Gastrointestinal: Abdominal Pain Neurological: No: Confusion Focused Exam Time of Focused Exam: 19:00 Objective Exam Last Set of Vital Signs Vital Signs Date Time Temp Pulse Resp B/P (MAP) Pulse Ox O2 Delivery O2 Flow Rate FiO2 05/26/22 11:26 36.8 85 18 145/72 (96) 95 Nasal Cannula 3.00 05/24/22 15:44 21 Capillary Refill : Less Than 3 Seconds I&O Intake and Output 05/26/22 00:00 Intake Total 2280 ml Output Total 1030 ml Balance 1250 ml Intake Oral 2230 ml IV Total 50 ml Output Urine Total 1030 ml # Voids 5 # Bowel Movements 2 General: Alert, Oriented X3, Cooperative, Mild Distress Lungs: Clear to Auscultation, Normal Air Movement, Other (appears to have increased work of breathing) Heart: Regular Rate, Normal S1, Normal S2, No Murmurs Abdomen: Soft, Other (RUQ tenderness) Extremities: Other (trace pedal edema) Neuro: Normal Speech Psych/Mental Status: Mental Status NL Results Lab Laboratory Tests 05/25/22 15:49: Glucometer 121H 05/25/22 21:21: Glucometer 163H 05/26/22 05:24: White Blood Count 28.1H, Red Blood Count 3.65L, Hemoglobin 10.7L, Hematocrit 31L , Mean Corpuscular Volume 86, Mean Corpuscular Hemoglobin 29, Mean Corpuscular Hemoglobin Concent 34, Red Cell Distribution Width 15.2H, Platelet Count 294, Mean Platelet Volume 11.8, Immature Granulocyte % (Auto) 5, Neutrophils (%) (Auto) 79H, Lymphocytes (%) (Auto) 6L, Monocytes (%) (Auto) 10, Eosinophils (%) (Auto) 0, Basophils (%) (Auto) 1, Neutrophils # (Auto) 22.1H, Lymphocytes # (Auto) 1.6, Monocytes # (Auto) 2.7H, Eosinophils # (Auto) 0.1, Basophils # (Auto) 0.1, Immature Granulocyte # (Auto) 1.5H, Sodium Level 133L, Potassium Level 3.7, Chloride Level 102, Carbon Dioxide Level 21, Anion Gap 10, Blood Urea Nitrogen 17, Creatinine 1.04, Estimat Glomerular Filtration Rate 57, BUN/Creatinine Ratio 16, Glucose Level 132H, Calcium Level 8.5, Corrected Calcium 9.8, Magnesium Level 1.7, Total Bilirubin 1.1H, Aspartate Amino Transf (AST/SGOT) 23, Alanine Aminotransferase (ALT/SGPT) 22, Alkaline Phosphatase 184H , Total Protein 5.8L, Albumin 2.4L, Procalcitonin 2.90H 05/26/22 10:59: Glucometer 128H Microbiology 05/22/22 MRSA Screen - Final, Complete MRSA not isolated 05/21/22 Urine Culture - Final, Complete Klebsiella pneumoniae 05/21/22 Blood Culture - Final, Complete Klebsiella pneumoniae Radiology US ABDOMEN LIMITED [id number] IMPRESSION: 1. Cholelithiasis with positive sonographic Wilson sign. Findings are concerning for acute cholecystitis and surgical consultation is recommended. 2. Hepatomegaly with hepatic steatosis. No focal hepatic lesions or ascites. Assessment/Plan Assessment/Plan Assess & Plan/Chief Complaint 1. Sepsis/septic shock secondary to pyelonephritis: Continue ceftriaxone regimen. Continue NS. Gram Negative Bacilli on blood culture. 05/23, hypotension has improved, continue current treatment with monitoring. 2. RUQ abdominal pain with right-sided hydronephrosis: Manage pyelonephritis. Consult Dr. Saunders or urology. 3. 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 4. Hypomagnesemia: Continue IV magnesium supplementation. Resolved as of 05/23, magnesium of 2.0. 5. Hypokalemia: Continue oral potassium supplementation. 6. Left basilar atelectasis vs pneumonitis: Continue supplemental O2 via nasal cannula. Monitor patient's respiratory status. 7. Elevated BUN, Creat: Continue IV fluid hydration. Recheck CMP in 24 hours. 8. HLD, HTN, Diabetes: Continue home meds. 9. Acute cholecystitis: Consult surgery, plan for HIDA scan. Clinical Quality Measures Admission Status Admission Dx 1. Sepsis/septic shock secondary to pyelonephritis: Initiate antibiotic regimen. Continue NS. Consider PICC line vs central line placement. Use vasopressors as needed for persistent hypotension. Gram Negative Bacilli on blood culture. 2. RUQ abdominal pain: Obtain abdominal US. Manage pyelonephritis. 3. 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 4. Hypomagnesemia: Initiate IV magnesium supplementation. 5. Hypokalemia: Initiate oral potassium supplementation. 6. Left basilar atelectasis vs pneumonitis: Continue supplemental O2 via nasal cannula. Monitor patient's respiratory status. 7. Elevated BUN, Creat: Continue IV fluid hydration. Recheck CMP in 24 hours. 8. HLD, HTN, Diabetes: Continue home meds. DVT/VTE Risk/Contraindication: Contraindications-Pharm: Other *list below* Other: needs or HERNANDEZROSELYN DO 05/27/22 0456: Subjective Subjective/Events-last exam Patient doing about the same Worrisome elevated white count at 28,[address] Mcgregor and urology and Dr. Booth Review of Systems Gastrointestinal: Abdominal Pain Objective Exam General: Alert, Oriented X3, Cooperative, No Acute Distress Lungs: Clear to Auscultation, Normal Air Movement Heart: Regular Rate, Normal S1, Normal S2, No Murmurs Psych/Mental Status: Mental Status NL, Mood NL Assessment/Plan Assessment/Plan Assess & Plan/Chief Complaint Ultrasound and HIDA scan showed no evidence of acute cholecystitis per Dr. Booth N.p.o. after midnight Supervisory-Addendum Brief Verification & Attestation Participated in pt care: history, MDM, physical Personally performed: exam, history, MDM, supervision of care Care discussed with: Medical Student Procedures: n/a Results interpretation: Verified all documentation Verification and Attestation of Medical Student E/M Service A medical student performed and documented this service in my presence. I reviewed and verified all information documented by the medical student and made modifications to such information, when appropriate. I personally performed the physical exam and medical decision making. Roselyn Hernandez, May 27, 2022,04:55 GAB ARANGO May 26, 2022 12:02 ROSELYN HERNANDEZ DO May 27, 2022 04:56
--- NOTE | 2022-05-26 14:54 | Diagnostic Imaging Report ---
Hepatobiliary Scintigraphy with Sincalide Administration REASON FOR EXAM: Right abdominal pain. Cholelithiasis COMPARISON: None Tc-99m Mebrofenin 5.44 mCi IV TECHNIQUE: After radiopharmaceutical administration, dynamic anterior abdominal imaging was performed for 120 minutes. FINDINGS: There is prompt, uniform accumulation of the tracer by the liver. There is normal filling of the intrahepatic ducts, common bile duct, and normal excretion of the tracer into the duodenum by 110 minutes. There is visualization of the gallbladder after 25 minutes of imaging. IMPRESSION: 1. Normal gallbladder filling indicates patency of the cystic duct. No evidence of acute cholecystitis. No evidence of common bile duct or cystic duct obstruction. Dictated by: Dictated on workstation # [id number]
[2022-05-26] MEDS: FENOFIBRATE 134 MG (LOFIBRA) CAPSULE PO SCH (22:43)
[2022-05-27] MEDS: NS IV 1000 ML 1,000 ML IV SCH ×2 (01:22→04:02)
[2022-05-27 05:42] LABS: BASOPHILS # (AUTO) 0.1 10^3/uL (0.0-0.1); BASOPHILS % (AUTO) 0 % (0-10); EOSINOPHILS # (AUTO) 0.1 10^3/uL (0.0-0.3); EOSINOPHILS % (AUTO) 0 % (0-10); HEMATOCRIT 32 % (35-52); HEMOGLOBIN 10.8 g/dL (11.5-16.0); LYMPHOCYTES # (AUTO) 1.9 10^3/uL (1.0-4.0); LYMPHOCYTES % (AUTO) 6 % (12-44); MEAN CORPUSCULAR HEMOGLOBIN 29 pg (25-34); MEAN CORPUSCULAR HGB CONC 34 g/dL (32-36); MEAN CORPUSCULAR VOLUME 84 fL (80-99); MEAN PLATELET VOLUME 11.5 fL (9.0-12.2); MONOCYTES # (AUTO) 2.9 10^3/uL (0.0-1.0); MONOCYTES % (AUTO) 9 % (0-12); NEUTROPHILS # (AUTO) 24.3 10^3/uL (1.8-7.8); NEUTROPHILS % (AUTO) 77 % (42-75); PLATELET COUNT 308 10^3/uL (130-400)
[2022-05-27 05:47] LABS: WHITE BLOOD COUNT 31.6 10^3/uL (4.3-11.0)
[2022-05-27] MEDS: inSUlin ASPART (NovoLOG) 1 UNIT/0.01 ML (CHARGE PER UNIT) SC SCH ×3 (06:12→16:26)
[2022-05-27 06:24] LABS: BILIRUBIN,URINE NEGATIVE (NEGATIVE); CLARITY,URINE CLEAR; COLOR,URINE YELLOW; GLUCOSE, URINE (UA) TRACE (NEGATIVE); KETONES,URINE NEGATIVE (NEGATIVE); LEUKOCYTE ESTERASE ,URINE NEGATIVE (NEGATIVE); NITRITE,URINE NEGATIVE (NEGATIVE); PROTEIN,URINE 2+ (NEGATIVE)
[2022-05-27 06:26] LABS: ALBUMIN 2.4 GM/DL (3.2-4.5); CALCIUM 8.5 MG/DL (8.5-10.1); CREATININE SERUM 0.86 MG/DL (0.60-1.30); MAGNESIUM 1.7 MG/DL (1.6-2.4); POTASSIUM 3.9 MMOL/L (3.6-5.0); TOTAL PROTEIN 6.2 GM/DL (6.4-8.2)
[2022-05-27 06:39] LABS: BACTERIA,URINE NEGATIVE /HPF; RBC,URINE RARE /HPF; WBC,URINE 0-2 /HPF
[2022-05-27] MEDS ORDERED: IOHEXOL 350 MG/ML 100 ML (OMNIPAQUE 350) VIAL IV ONE (07:15)
[2022-05-27] MEDS ORDERED: HOLD METFORMIN - RECEIVED CONTRAST 20 ML VIAL IV SCH (07:15)
[2022-05-27] MEDS ORDERED: NS 100 ML (IVPB) BAG IV ONE (07:15)
--- NOTE | 2022-05-27 08:40 | Occupational Ther Daily Note ---
OT Current Status-Daily Note Subjective Pt back from x-ray. Agrees to therapy. Pt c/o fatigue and not wanting to do anything. Max encouragement to participate in skilled therapy. Declined any ADLs or exercises. Mental Status/Objective Patient Orientation: Person, Place, Time, Situation Attachments: IV, Oxygen ADL-Treatment Therapy Code Descriptions/Definitions Functional [place] Measure: 0=Not Assessed/NA 4=Minimal Assistance 1=Total Assistance 5=Supervision or Setup 2=Maximal Assistance 6=Modified [place] 3=Moderate Assistance 7=Complete IndependenceSCALE: Activities may be completed with or without assistive devices. 3-Lwdishfnem-vdlprys completes the activity by him/herself with no assistance from a helper. 5-Set-up or Clean-up Assistance-helper sets up or cleans up; patient completes activity. [place] assists only prior to or following the activity. 4-Supervision or Touching Assistance-helper provides verbal cues and/or touching/steadying and/or contact guard assistance as patient completes activity. Assistance may be provided throughout the activity or intermittently. 3-Partial/Moderate Assistance-helper does LESS THAN HALF the effort. [place] lifts, holds or supports trunk or limbs, but provides less than half the effort. 2-Substantial/Maximal Assistance-helper does MORE THAN HALF the effort. [place] lifts or holds trunk or limbs and provides more than half the effort. 5-Lybqqkehj-jssrne does ALL the effort. Patient does none of the effort to complete the activity. Or, the assistance of 2 or more helpers is required for the patient to complete the activity. If activity was not attempted, code reason: 7-Patient Refused. 9-Not Applicable-not attempted and the patient did not perform the activity before the current illness, exacerbation or injury. 10-Not Attempted due to Environmental Limitations-(lack of equipment, weather restraints, etc.). 88-Not Attempted due to Medical Conditions or Safety Concerns. Other Treatment Pt ambulated 15' using FWW with SBA and transferred into chair. Attempted to have pt ambulate to bathroom to wash face or use toilet, pt continued to refuse. After sitting in recliner pt agrees to wash face and was finished participating in therapy at this time. Call light/phone in reach. All needs met, pt in recliner. OT [employer] Goals Assisted Goals Time Frame: May 30, 2022 Eating (QC): 6 Oral Hygiene (QC): 6 Toileting Hygiene (QC): 6 Shower/Bathe Self (QC): 4 Upper Body Dressing (QC): 5 Lower Body Dressing (QC): 5 On/Off Footwear (QC): 5 Additional Goals: 1-Demonstrate ADL Tasks, 2-Verbalize Understanding, 3-ImproveStrength/Lito 1=Demonstrate adherence to instructed precautions during ADL tasks. 2=Patient will verbalize/demonstrate understanding of assistive devices/modifications for ADL. 3=Patient will improve strength/tolerance for activity to enable patient to perform ADL's. OT Education/Plan Problem List/Assessment Assessment: Decreased Activ Tolerance Discharge Recommendations Plan/Recommendations: Continue POC Treatment Plan/Plan of Care Patient would benefit from OT for education, treatment and training to promote independence in ADL's, mobility, safety and/or upper extremity function for ADL's. Plan of Care: ADL Retraining, Functional Mobility, UE Funct Exercise/Act Treatment Duration: May 30, 2022 Frequency: 3 times per week (3-5x/week) Estimated Hrs Per Day: .25 hour per day Rehab Potential: Fair Time Start Time: 08:20 Stop Time: 08:28 DATE: May 27, 2022 Total Time Billed (hr/min): 8 Billed Treatment Time 1 visit-FA 1 (8 min) CASSIDY YE May 27, 2022 08:40
--- NOTE | 2022-05-27 08:41 | Diagnostic Imaging Report ---
EXAMINATION: CT abdomen and pelvis with intravenous contrast. TECHNIQUE: Multiple contiguous axial images were obtained through the abdomen and pelvis after the uneventful administration of intravenous contrast. All CT scans use one or more of the following dose optimizing techniques: automated exposure control, MA and/or KvP adjustment based on patient size and exam type or iterative reconstruction. HISTORY: Sepsis COMPARISON: 05/21/2022 FINDINGS: Limited views of the lower thorax show small right pleural effusion and overlying atelectasis. The liver is normal without focal lesion. There is no biliary ductal dilation. There are stones in the gallbladder. No wall thickening or pericholecystic fluid. Distal pancreas contains a unchanged 1.7 cm cyst. 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 Adrenal glands are normal. There is severe right-sided hydronephrosis transitioning at the ureteropelvic junction. No obstructing mass or stone is seen. There is a delayed nephrogram of the right kidney. There is perinephric stranding on the right. Urinary bladder is normal. Bowel is normal in caliber without obstruction or inflammation. No free fluid or air. No abdominal or pelvic lymphadenopathy. Aorta is normal in caliber without aneurysm. There are no suspicious osseus lesions. IMPRESSION: 1. Severe right-sided hydronephrosis transitioning at the ureteropelvic junction suggestive of a ureteropelvic junction obstruction. There is a delayed right-sided nephrogram and surrounding stranding concerning for superinfection of the right kidney. Dictated by: Dictated on workstation # [id number]
[2022-05-27] MEDS: ESTRADIOL 1 MG TAB (ESTRACE) PO SCH (08:42)
[2022-05-27] MEDS: ENOXAPARIN 40 MG/0.4 ML (LOVENOX) SYR SC SCH (08:42)
[2022-05-27] MEDS: LORATADINE (CLARITIN) 10 MG TAB PO SCH (08:42)
[2022-05-27] MEDS: cefTRIAXone 2,000 MG/NS 50 ML IVPB IV SCH ×2 (08:42)
[2022-05-27] MEDS: SENNOSIDES 8.6 MG (SENOKOT) TAB PO SCH (08:42)
[2022-05-27] MEDS: MIRABEGRON 25 MG TAB (MYRBETRIQ) PO SCH (08:42)
[2022-05-27] MEDS: DOCUSATE SODIUM 100 MG (COLACE) CAP PO SCH (08:42)
[2022-05-27] MEDS: PANTOPRAZOLE 20 MG TABLET (PROTONIX) PO SCH (08:42)
--- NOTE | 2022-05-27 10:12 | Progress Note - Urology ---
Progress Note-Urology Progress Notes/Assess & Plan Progress/Assessment & Plan WBCS AND ALK PHOS HIGHER. NO FEVER. UA NEG. RECOMMEND TRANSFER TO [facility] TO HOSPITALIST WITH CONSULTATION WITH UROLOGY FOR POSSIBLE STENT OR PCN TUBE. ALSO POSSIBLE CONSULTATION WITH INFECTIOUS DISEASE ALL DISCUSSED AND EXPLAINED TO PATIENT. DR HERNANDEZ AGREEABLE AND PROCEEDING WITH TRANSFER ORDERS Final Diagnosis UROSEPSIS AND RT UPJ OBSTRUCTION JEANCARLOS SUBRAMANIAN MD May 27, 2022 10:11
--- NOTE | 2022-05-27 10:37 | Physical Therapy Progress Note ---
Therapy Progress Note Patient to transfer to per nursing. PT to dismiss patient from services at this time. [facility] PT May 27, 2022 10:37
--- NOTE | 2022-05-27 12:24 | Progress Note ---
GAB ARANGO 05/27/22 1224: Subjective Date Seen by a Provider: May 27, 2022 Time Seen by a Provider: 10:45 Subjective/Events-last exam Amaya Mcgregor is a 72 yo female who was admitted to the ICU from the ED with diagnoses of sepsis and pyelonephritis. The patient presented to the ED for right upper abdominal pain radiating to her right flank, beginning at 0500 on 05/22. She states the pain worsened with ambulation and is accompanied by nausea, chills, decreased urine, and nocturnal diaphoresis. The patient denies any vomit, decreased appetite, dysuria, fever, chest pain, leg swelling. She also denies any history of similar pain or abdominal surgery, as well as any personal or family history of kidney disease. The patient was treated with cefepime initially and switched to ceftriaxone after urine culture and sensitivities returned. She was also evaluated with Abdominal XR, CT, and US, which in totality revealed right-sided hydronephrosis and cholelithiasis. HIDA scan showed no cholecystitis or cystic duct obstruction. Repeat UA shows no signs of UTI, but the patient has persistently elevated WBC of 31.6 on 05/27, Alkaline Phosphatase of 2.4, and Procalcitonin of 1.72. The patient on evaluation on 05/27 states she has slight improvement to her abdominal pain but has increasing fatigue and a lack of appetite. Exam reveals a patient with mildly increased work of breathing, RUQ abdominal tenderness, and trace pedal edema. Urology was consulted and recommends transfer for higher level management of the patient's renal dysfunction. Review of Systems General: Fatigue Pulmonary: No Dyspnea; Cough Cardiovascular: No: Chest Pain Gastrointestinal: Abdominal Pain Genitourinary: No Dysuria, No Frequency, No Incontinence Focused Exam Lactate Level 05/27/22 06:15: Lactic Acid Level 0.84 Time of Focused Exam: 19:00 Objective Exam Last Set of Vital Signs Vital Signs Date Time Temp Pulse Resp B/P (MAP) Pulse Ox O2 Delivery O2 Flow Rate FiO2 05/27/22 11:18 36.6 60 18 111/66 (81) 96 Room Air 05/27/22 08:00 3.00 05/24/22 15:44 21 Capillary Refill : Less Than 3 Seconds I&O Intake and Output 05/27/22 00:00 Intake Total 1495 ml Balance 1495 ml Intake Oral 1495 ml # Voids 6 General: Alert, Oriented X3, Cooperative, Mild Distress HEENT: Atraumatic Heart: Regular Rate, Normal S1, Normal S2 Abdomen: Other (RUQ tenderness) Extremities: Other (trace pedal edema bilaterally) Skin: No Rashes, No Breakdown Neuro: Normal Speech Psych/Mental Status: Mental Status NL Results Lab Laboratory Tests 05/26/22 15:55: Glucometer 95 05/26/22 20:03: Glucometer 127H 05/27/22 05:26: Glucometer 127H 05/27/22 05:33: B-Type Natriuretic Peptide 99.5 05/27/22 05:36: White Blood Count 31.6*H, Red Blood Count 3.78L, Hemoglobin 10.8L, Hematocrit 32L, Mean Corpuscular Volume 84, Mean Corpuscular Hemoglobin 29, Mean Corpuscular Hemoglobin Concent 34, Red Cell Distribution Width 15.3H, Platelet Count 308, Mean Platelet Volume 11.5, Immature Granulocyte % (Auto) 8, Neutrophils (%) (Auto) 77H, Lymphocytes (%) (Auto) 6L, Monocytes (%) (Auto) 9, E osinophils (%) (Auto) 0, Basophils (%) (Auto) 0, Neutrophils # (Auto) 24.3H, Lymphocytes # (Auto) 1.9, Monocytes # (Auto) 2.9H, Eosinophils # (Auto) 0.1, Basophils # (Auto) 0.1, Immature Granulocyte # (Auto) 2.4H, Sodium Level 132L, Potassium Level 3.9, Chloride Level 101, Carbon Dioxide Level 23, Anion Gap 8, Blood Urea Nitrogen 18, Creatinine 0.86, Estimat Glomerular Filtration Rate 71, BUN/Creatinine Ratio 21, Glucose Level 146H, Calcium Level 8.5, Corrected Calcium 9.8, Magnesium Level 1.7, Total Bilirubin 1.0, Aspartate Amino Transf (AST/SGOT) 29, Alanine Aminotransferase (ALT/SGPT) 23, Alkaline Phosphatase 245H , Total Protein 6.2L, Albumin 2.4L 05/27/22 06:12: Urine Color YELLOW, Urine Clarity CLEAR, Urine pH 6.0, Urine Specific [place] 1.025H, Urine Protein 2+H, Urine Glucose (UA) TRACEH, Urine Ketones NEGATIVE, Urine Nitrite NEGATIVE, Urine Bilirubin NEGATIVE, Urine Urobilinogen 4.0, Urine Leukocyte Esterase NEGATIVE, Urine RBC (Auto) 1+H, Urine RBC RARE, Urine WBC 0- 2, Urine Squamous Epithelial Cells 2-5, Urine Crystals NONE, Urine Bacteria NEGATIVE, Urine Casts NONE, Urine Mucus NEGATIVE, Urine Culture Indicated NO 05/27/22 06:15: Lactic Acid Level 0.84, Procalcitonin 1.72H 05/27/22 11:12: Glucometer 105 Microbiology 05/22/22 MRSA Screen - Final, Complete MRSA not isolated 05/21/22 Urine Culture - Final, Complete Klebsiella pneumoniae 05/21/22 Blood Culture - Final, Complete Klebsiella pneumoniae Radiology Date of Exam:05/26/22 US ABDOMEN LIMITED [id number] COMPARISON: 05/22/2022. IMPRESSION: 1. Cholelithiasis with positive sonographic Wilson sign. Findings are concerning for acute cholecystitis and surgical consultation is recommended. 2. Hepatomegaly with hepatic steatosis. No focal hepatic lesions or ascites. Date of Exam:05/26/22 HEPATOBILIARY WITHOUT EJECTION Hepatobiliary Scintigraphy with Sincalide Administration IMPRESSION: 1. Normal gallbladder filling indicates patency of the cystic duct. No evidence of acute cholecystitis. No evidence of common bile duct or cystic duct obstruction. Date of Exam:05/27/22 CT ABDOMEN/PELVIS W COMPARISON: 05/21/2022 IMPRESSION: 1. Severe right-sided hydronephrosis transitioning at the ureteropelvic junction suggestive of a ureteropelvic junction obstruction. There is a delayed right-sided nephrogram and surrounding stranding concerning for superinfection of the right kidney. Assessment/Plan Assessment/Plan Assess & Plan/Chief Complaint 1. Sepsis vs septic shock secondary to pyelonephritis: Continue ceftriaxone regimen. Continue NS. Gram Negative Bacilli on blood culture. 05/23, hypotension has improved, continue current treatment with monitoring. 2. RUQ abdominal pain with right-sided hydronephrosis: Manage pyelonephritis. Consult Dr. Saunders or urology. Cholecystitis ruled out by HIDA scan 05/26. 3. 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 4. Hypomagnesemia: Continue IV magnesium supplementation. Resolved as of 05/23, magnesium of 2.0. 5. Hypokalemia: Continue oral potassium supplementation. 6. Left basilar atelectasis vs pneumonitis: Continue supplemental O2 via nasal cannula. Monitor patient's respiratory status. 7. Elevated BUN, Creat: Resolved 05/26. Continue IV fluid hydration. Recheck CMP in 24 hours. 8. HLD, HTN, Diabetes: Continue home meds. Clinical Quality Measures Admission Status Admission Dx 1. Sepsis/septic shock secondary to pyelonephritis: Initiate antibiotic regimen. Continue NS. Consider PICC line vs central line placement. Use vasopressors as needed for persistent hypotension. Gram Negative Bacilli on blood culture. 2. RUQ abdominal pain: Obtain abdominal US. Manage pyelonephritis. 3. 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 4. Hypomagnesemia: Initiate IV magnesium supplementation. 5. Hypokalemia: Initiate oral potassium supplementation. 6. Left basilar atelectasis vs pneumonitis: Continue supplemental O2 via nasal cannula. Monitor patient's respiratory status. 7. Elevated BUN, Creat: Continue IV fluid hydration. Recheck CMP in 24 hours. 8. HLD, HTN, Diabetes: Continue home meds. DVT/VTE Risk/Contraindication: Contraindications-Pharm: Other *list below* Other: needs or ROSELYN HERNANDEZ DO 05/28/22 0439: Supervisory-Addendum Brief Verification & Attestation Participated in pt care: history, MDM, physical Personally performed: exam, history, MDM, supervision of care Care discussed with: Medical Student Procedures: n/a Results interpretation: Verified all documentation Verification and Attestation of Medical Student E/M Service A medical student performed and documented this service in my presence. I reviewed and verified all information documented by the medical student and made modifications to such information, when appropriate. I personally performed the physical exam and medical decision making. Roselyn Hernandez, May 28, 2022,04:39 GAB ARANGO May 27, 2022 12:24 ROSELYN HERNANDEZ DO May 28, 2022 04:39
--- NOTE | 2022-05-27 14:25 | Diagnostic Imaging Report ---
INDICATION: Elevated white count. Comparison with 05/21/2022. FINDINGS: Portable chest. There is bibasilar atelectasis. There does appear to be developing infiltrate in the right lung base as well, which is causing some obscuration of the right hemidiaphragm. The upper lungs remain clear. The heart is not enlarged. PICC line is present on the right with the tip at the cavoatrial junction. IMPRESSION: Basilar atelectasis with probable infiltrate developing in the right lung base as well. Dictated by: Dictated on workstation # [id number]
[2022-05-27] MEDS ORDERED: CFTR1PB IV (14:48)
--- NOTE | 2022-05-27 14:49 | Discharge Summary ---
Diagnosis/Chief Complaint Date of Admission May 22, 2022 at 09:52 Date of Discharge Discharge Date: May 27, 2022 Discharge Diagnosis Severe sepsis Acute kidney injury now resolved Right-sided pyelonephritis with hydronephrosis Reason Hospital Visit CC: Septic shock from pyelo HPI: This is a 72yoWF clinic patient of Dr Plascencia who has a h/o HTN and DM and previous heavy smoker who presented to the ER with abdominal pain and was found to have pydelo with hydronephrosis so she was admitted to 4th floor after IVF and Rocephin. Patient worsened with hypotension prompting ICU transfer for further IVF. Cefepime added and Rocephin DC. No levophed required. Discharge Summary Discharge Physical Examination Allergies: Coded Allergies: adhesive tape (Verified Allergy, Unknown, 07/13/18) Vitals & I&Os Vital Signs Date Time Temp Pulse Resp B/P (MAP) Pulse Ox O2 Delivery O2 Flow Rate FiO2 05/27/22 17:45 37.6 60 22 121/74 93 Nasal Cannula 3.00 05/24/22 15:44 21 Hospital Course Was the Problem List Reviewed?: Yes Amaya Mcgregor is a 72 yo female who was admitted to the ICU from the ED with diagnoses of sepsis and pyelonephritis. The patient presented to the ED for right upper abdominal pain radiating to her right flank, beginning at 0500 on 05/22. She states the pain worsened with ambulation and is accompanied by nausea, chills, decreased urine, and nocturnal diaphoresis. The patient denies any vomit, decreased appetite, dysuria, fever, chest pain, leg swelling. She also denies any history of similar pain or abdominal surgery, as well as any personal or family history of kidney disease. The patient was treated with cefepime initially and switched to ceftriaxone after urine culture and sensitivities returned. She was also evaluated with Abdominal XR, CT, and US, which in totality revealed right-sided hydronephrosis and cholelithiasis. HIDA scan showed no cholecystitis or cystic duct obstruction. Repeat UA shows no signs of UTI, but the patient has persistently elevated WBC of 31.6 on 05/27, Alkaline Phosphatase of 2.4, and Procalcitonin of 1.72. The patient on evaluation on 05/27 states she has slight improvement to her abdominal pain but has increasing fatigue and a lack of appetite. Exam reveals a patient with mildly increased work of breathing, RUQ abdominal tenderness, and trace pedal edema. Urology was consulted and recommends transfer for higher level management of the patient's renal dysfunction. Labs (last 24 hrs) Laboratory Tests 05/21/22 17:35: White Blood Count 24.1H, Red Blood Count 4.91, Hemoglobin 14.3, Hematocrit 44, Mean Corpuscular Volume 90, Mean Corpuscular Hemoglobin 29, Mean Corpuscular Hemoglobin Concent 32, Red Cell Distribution Width 14.9H, Platelet Count 508H, Mean Platelet Volume 11.4, Immature Granulocyte % (Auto) 1, Neutrophils (%) (Auto) 81H, Lymphocytes (%) (Auto) 9L, Monocytes (%) (Auto) 9, Eosinophils (%) (Auto) 0, Basophils (%) (Auto) 1, Neutrophils # (Auto) 19.5H, Lymphocytes # (Aut o) 2.3, Monocytes # (Auto) 2.1H, Eosinophils # (Auto) 0.0, Basophils # (Auto) 0.1, Immature Granulocyte # (Auto) 0.2H, Neutrophils % (Manual) 84, Lymphocytes % (Manual) 6, Monocytes % (Manual) 10, Eosinophils % (Manual) , Microcytosis , Acanthocytes SLIGHT, Erythrocyte Sedimentation Rate 1, Sodium Level 135, Potassium Level 4.5, Chloride Level 100, Carbon Dioxide Level 25, Anion Gap 10, Blood Urea Nitrogen 25H, Creatinine 1.57H, Estimat Glomerular Filtration Rate 35, BUN/Creatinine Ratio 16, Glucose Level 191H, Calcium Level 9.8, Corrected Calcium 9.9, Total Bilirubin 0.4, Aspartate Amino Transf (AST/SGOT) 15, Alanine Aminotransferase (ALT/SGPT) 14, Alkaline Phosphatase 106, C-Reactive Protein High Sensitivity 8.95H, Total Protein 7.7, Albumin 3.9, Amylase Level 41, Lipase 9, Procalcitonin 0.10H 05/21/22 18:30: Lactic Acid Level 1.66 05/21/22 19:00: Urine Color YELLOW, Urine Clarity TURBID, Urine pH 5.5, Urine Specific [place] 1.025H, Urine Protein 2+H, Urine Glucose (UA) TRACEH, Urine Ketones TRACEH, Urine Nitrite NEGATIVE, Urine Bilirubin NEGATIVE, Urine Urobilinogen 1.0, Urine Leukocyte Esterase 2+H, Urine RBC (Auto) 2+H, Urine RBC 25-50H, Urine WBC TNTCH, Urine Squamous Epithelial Cells 2-5, Urine Crystals NONE, Urine Bacteria LARGEH, Urine Casts NONE, Urine Mucus NEGATIVE, Urine Culture Indicated CULTURE PENDING 05/22/22 03:45: Glucometer 147H 05/22/22 05:06: White Blood Count 28.9H, Red Blood Count 4.73, Hemoglobin 13.7, Hematocrit 43, Mean Corpuscular Volume 90, Mean Corpuscular Hemoglobin 29, Mean Corpuscular H emoglobin Concent 32, Red Cell Distribution Width 14.8H, Platelet Count 383, Mean Platelet Volume 11.8, Immature Granulocyte % (Auto) 1, Neutrophils (%) (Auto) 93H, Lymphocytes (%) (Auto) 3L, Monocytes (%) (Auto) 2, Eosinophils (%) (Auto) 1, Basophils (%) (Auto) 0, Neutrophils # (Auto) 26.9H, Lymphocytes # (Auto) 0.8L, Monocytes # (Auto) 0.6, Eosinophils # (Auto) 0.2, Basophils # (Auto) 0.1, Immature Granulocyte # (Auto) 0.4H, Sodium Level 138, Potassium Level 3.3L, Chloride Level 106, Carbon Dioxide Level 20L, Anion Gap 12, Blood Urea Nitrogen 28H, Creatinine 1.95H, Estimat Glomerular Filtration Rate 27, BUN/Creatinine Ratio 14, Glucose Level 135H, Calcium Level 8.7, Corrected Calcium 9.3, Magnesium Level 1.0*L, Total Bilirubin 1.0, Aspartate Amino Transf (AST/SGOT) 16, Alanine Aminotransferase (ALT/SGPT) 13, Alkaline Phosphatase 101, Total Protein 6.5, Albumin 3.3, Procalcitonin 4.47H 05/22/22 07:57: Lactic Acid Level 1.64 05/22/22 09:52: Lab Scanned Report Referred Lab Report 05/22/22 12:13: Glucometer 175H 05/22/22 15:19: White Blood Count 38.3*H, Red Blood Count 4.03, Hemoglobin 11.9, Hematocrit 37, Mean Corpuscular Volume 92, Mean Corpuscular Hemoglobin 30, Mean Corpuscular Hemoglobin Concent 32, Red Cell Distribution Width 15.1H, Platelet Count 374, Mean Platelet Volume 11.6, Immature Granulocyte % (Auto) 5, Neutrophils (%) (Auto) 88H, Lymphocytes (%) (Auto) 5L, Monocytes (%) (Auto) 2, Eosinophils (%) (Auto) 0, Basophils (%) (Auto) 0, Neutrophils # (Auto) 33.6H, Lymphocytes # (Auto) 1.7, Monocytes # (Auto) 0.9, Eosinophils # (Auto) 0.0, Basophils # (Auto) 0.1, Immature Granulocyte # (Auto) 2.0H, Neutrophils % (Manual) 73, Lymphocytes % (Manual) 3, Monocytes % (Manual) 3, Band Neutrophils 21, Acanthocytes SLIGHT, Sodium Level 135, Potassium Level 4.8, Chloride Level 107, Carbon Dioxide Level 20L, Anion Gap 8, Blood Urea Nitrogen 30H, Creatinine 2.22H, Estimat Glomerular Filtration Rate 23, BUN/Creatinine Ratio 14, Glucose Level 189H, Calcium Level 7.8L, Magnesium Level 1.7 05/22/22 15:48: Glucometer 174H 05/22/22 20:09: Glucometer 137H 05/23/22 04:45: White Blood Count 30.9*H, Red Blood Count 3.86, Hemoglobin 11.4L, Hematocrit 34L , Mean Corpuscular Volume 89, Mean Corpuscular Hemoglobin 30, Mean Corpuscular Hemoglobin Concent 33, Red Cell Distribution Width 15.1H, Platelet Count 344, Mean Platelet Volume 11.9, Immature Granulocyte % (Auto) 2, Neutrophils (%) (Auto) 90H, Lymphocytes (%) (Auto) 5L, Monocytes (%) (Auto) 3, Eosinophils (%) (Auto) 0, Basophils (%) (Auto) 1, Neutrophils # (Auto) 27.7H, Lymphocytes # (Auto) 1.4, Monocytes # (Auto) 0.9, Eosinophils # (Auto) 0.0, Basophils # (Auto) 0.1, Immature Granulocyte # (Auto) 0.7H, Sodium Level 136, Potassium Level 4.2, Chloride Level 109H, Carbon Dioxide Level 16L, Anion Gap 11, Blood Urea Nitrogen 35H, Creatinine 1.84H, Estimat Glomerular Filtration Rate 29, BUN/Creatinine Ratio 19, Glucose Level 139H, Calcium Level 7.8L, Magnesium Level 2.0, Corrected Calcium 8.9, Phosphorus Level 2.8, Total Bilirubin 0.5, Aspartate Amino Transf (AST/SGOT) 23, Alanine Aminotransferase (ALT/SGPT) 15, Alkaline Phosphatase 76, Total Protein 5.6L, Albumin 2.6L 05/23/22 06:14: Glucometer 120H 05/23/22 10:29: Glucometer 130H 05/23/22 15:48: Glucometer 163H 05/23/22 20:57: Glucometer 161H 05/24/22 05:00: White Blood Count 22.7H, Red Blood Count 3.84, Hemoglobin 11.3L, Hematocrit 34L, Mean Corpuscular Volume 88, Mean Corpuscular Hemoglobin 29, Mean Corpuscular H emoglobin Concent 33, Red Cell Distribution Width 15.3H, Platelet Count 311, Mean Platelet Volume 11.8, Immature Granulocyte % (Auto) 1, Neutrophils (%) (Auto) 88H, Lymphocytes (%) (Auto) 6L, Monocytes (%) (Auto) 4, Eosinophils (%) (Auto) 0, Basophils (%) (Auto) 0, Neutrophils # (Auto) 20.0H, Lymphocytes # (Auto) 1.4, Monocytes # (Auto) 0.9, Eosinophils # (Auto) 0.1, Basophils # (Auto) 0.1, Immature Granulocyte # (Auto) 0.2H, Sodium Level 134L, Potassium Level 3.9, Chloride Level 106, Carbon Dioxide Level 17L, Anion Gap 11, Blood Urea Nitrogen 26H, Creatinine 1.19, Estimat Glomerular Filtration Rate 48, BUN/Creatinine Ratio 22, Glucose Level 134H, Calcium Level 8.1L, Corrected Calcium 9.2, Phosphorus Level 2.1L, Magnesium Level 1.9, Total Bilirubin 0.6, Aspartate Amino Transf (AST/SGOT) 22, Alanine Aminotransferase (ALT/SGPT) 18, Alkaline Phosphatase 127, Total Protein 5.9L, Albumin 2.6L 05/24/22 10:47: Glucometer 139H 05/24/22 12:57: Glucometer 131H 05/24/22 15:47: Glucometer 157H 05/24/22 20:55: Glucometer 164H 05/25/22 04:30: White Blood Count 25.0H, Red Blood Count 3.95, Hemoglobin 11.6, Hematocrit 34L, Mean Corpuscular Volume 87, Mean Corpuscular Hemoglobin 29, Mean Corpuscular Hemoglobin Concent 34, Red Cell Distribution Width 15.3H, Platelet Count 310, Mean Platelet Volume 12.0, Immature Granulocyte % (Auto) 2, Neutrophils (%) (Auto) 86H, Lymphocytes (%) (Auto) 4L, Monocytes (%) (Auto) 8, Eosinophils (%) (Auto) 0, Basophils (%) (Auto) 0, Neutrophils # (Auto) 21.5H, Lymphocytes # (Auto) 0.9L, Monocytes # (Auto) 2.0H, Eosinophils # (Auto) 0.1, Basophils # (Auto) 0.1, Immature Granulocyte # (Auto) 0.4H, Sodium Level 134L, Potassium Level 3.9, Chloride Level 103, Carbon Dioxide Level 20L, Anion Gap 11, Blood Urea Nitrogen 21H, Creatinine 1.07, Estimat Glomerular Filtration Rate 55, BUN/Creatinine Ratio 20, Glucose Level 139H, Calcium Level 8.5, Corrected Calcium 9.7, Magnesium Level 1.7, Total Bilirubin 0.9, Aspartate Amino Transf (AST/SGOT) 26, Alanine Aminotransferase (ALT/SGPT) 20, Alkaline Phosphatase 174H , Total Protein 5.8L, Albumin 2.5L 05/25/22 10:38: Glucometer 153H 05/25/22 15:49: Glucometer 121H 05/25/22 21:21: Glucometer 163H 05/26/22 05:24: White Blood Count 28.1H, Red Blood Count 3.65L, Hemoglobin 10.7L, Hematocrit 31L , Mean Corpuscular Volume 86, Mean Corpuscular Hemoglobin 29, Mean Corpuscular Hemoglobin Concent 34, Red Cell Distribution Width 15.2H, Platelet Count 294, Mean Platelet Volume 11.8, Immature Granulocyte % (Auto) 5, Neutrophils (%) (Auto) 79H, Lymphocytes (%) (Auto) 6L, Monocytes (%) (Auto) 10, Eosinophils (%) (Auto) 0, Basophils (%) (Auto) 1, Neutrophils # (Auto) 22.1H, Lymphocytes # (Auto) 1.6, Monocytes # (Auto) 2.7H, Eosinophils # (Auto) 0.1, Basophils # (Auto) 0.1, Immature Granulocyte # (Auto) 1.5H, Sodium Level 133L, Potassium Level 3.7, Chloride Level 102, Carbon Dioxide Level 21, Anion Gap 10, Blood Urea Nitrogen 17, Creatinine 1.04, Estimat Glomerular Filtration Rate 57, BUN/Creatinine Ratio 16, Glucose Level 132H, Calcium Level 8.5, Corrected Calcium 9.8, Magnesium Level 1.7, Total Bilirubin 1.1H, Aspartate Amino Transf (AST/SGOT) 23, Alanine Aminotransferase (ALT/SGPT) 22, Alkaline Phosphatase 184H , Total Protein 5.8L, Albumin 2.4L, Procalcitonin 2.90H 05/26/22 10:59: Glucometer 128H 05/26/22 15:55: Glucometer 95 05/26/22 20:03: Glucometer 127H 05/27/22 05:26: Glucometer 127H 05/27/22 05:33: B-Type Natriuretic Peptide 99.5 05/27/22 05:36: White Blood Count 31.6*H, Red Blood Count 3.78L, Hemoglobin 10.8L, Hematocrit 32L, Mean Corpuscular Volume 84, Mean Corpuscular Hemoglobin 29, Mean Corpuscular Hemoglobin Concent 34, Red Cell Distribution Width 15.3H, Platelet Count 308, Mean Platelet Volume 11.5, Immature Granulocyte % (Auto) 8, Neutrophils (%) (Auto) 77H, Lymphocytes (%) (Auto) 6L, Monocytes (%) (Auto) 9, Eosinophils (%) (Auto) 0, Basophils (%) (Auto) 0, Neutrophils # (Auto) 24.3H, Lymphocytes # (Auto) 1.9, Monocytes # (Auto) 2.9H, Eosinophils # (Auto) 0.1, Basophils # (Auto) 0.1, Immature Granulocyte # (Auto) 2.4H, Sodium Level 132L, Potassium Level 3.9, Chloride Level 101, Carbon Dioxide Level 23, Anion Gap 8, Blood Urea Nitrogen 18, Creatinine 0.86, Estimat Glomerular Filtration Rate 71, BUN/Creatinine Ratio 21, Glucose Level 146H, Calcium Level 8.5, Corrected Calcium 9.8, Magnesium Level 1.7, Total Bilirubin 1.0, Aspartate Amino Transf (AST/SGOT) 29, Alanine Aminotransferase (ALT/SGPT) 23, Alkaline Phosphatase 245H , Total Protein 6.2L, Albumin 2.4L 05/27/22 06:12: Urine Color YELLOW, Urine Clarity CLEAR, Urine pH 6.0, Urine Specific [place] 1.025H, Urine Protein 2+H, Urine Glucose (UA) TRACEH, Urine Ketones NEGATIVE, Urine Nitrite NEGATIVE, Urine Bilirubin NEGATIVE, Urine Urobilinogen 4.0, Urine Leukocyte Esterase NEGATIVE, Urine RBC (Auto) 1+H, Urine RBC RARE, Urine WBC 0- 2, Urine Squamous Epithelial Cells 2-5, Urine Crystals NONE, Urine Bacteria NEGATIVE, Urine Casts NONE, Urine Mucus NEGATIVE, Urine Culture Indicated NO 05/27/22 06:15: Lactic Acid Level 0.84, Procalcitonin 1.72H 05/27/22 11:12: Glucometer 105 05/27/22 16:26: Glucometer 132H Microbiology 05/22/22 MRSA Screen - Final, Complete MRSA not isolated 05/21/22 Urine Culture - Final, Complete Klebsiella pneumoniae 05/21/22 Blood Culture - Final, Complete Klebsiella pneumoniae Pending Labs Microbiology Date/Time Source Procedure Growth Status 05/22/22 08:30 Nasal MRSA Screen - Final MRSA not isolated Complete 05/21/22 19:00 Urine Clean Catch Urine Culture - Final Klebsiella pneumoniae Complete 05/21/22 18:50 Peripheral Lt Ac Blood Culture - Final Klebsiella pneumoniae Complete 05/21/22 18:30 Peripheral Rt Ac Blood Culture - Final Klebsiella pneumoniae Complete Laboratory Tests 05/21/22 17:35: White Blood Count 24.1, Red Blood Count 4.91, Hemoglobin 14.3, Hematocrit 44, Mean Corpuscular Volume 90, Mean Corpuscular Hemoglobin 29, Mean Corpuscular Hemoglobin Concent 32, Red Cell Distribution Width 14.9, Platelet Count 508, Mean Platelet Volume 11.4, Immature Granulocyte % (Auto) 1, Neutrophils (%) (Auto) 81, Lymphocytes (%) (Auto) 9, Monocytes (%) (Auto) 9, Eosinophils (%) (Auto) 0, Basophils (%) (Auto) 1, Neutrophils # (Auto) 19.5, Lymphocytes # (Auto) 2.3, Monocytes # (Auto) 2.1, Eosinophils # (Auto) 0.0, Basophils # (Auto) 0.1, Immature Granulocyte # (Auto) 0.2, Neutrophils % (Manual) 84, Lymphocytes % (Manual) 6, Monocytes % (Manual) 10, Eosinophils % (Manual) , Microcytosis , Acanthocytes SLIGHT, Erythrocyte Sedimentation Rate 1, Sodium Level 135, Potassium Level 4.5, Chloride Level 100, Carbon Dioxide Level 25, Anion Gap 10, Blood Urea Nitrogen 25, Creatinine 1.57, Estimat Glomerular Filtration Rate 35, BUN/Creatinine Ratio 16, Glucose Level 191, Calcium Level 9.8, Corrected Calcium 9.9, Total Bilirubin 0.4, Aspartate Amino Transf (AST/SGOT) 15, Alanine Aminotransferase (ALT/SGPT) 14, Alkaline Phosphatase 106, C-Reactive Protein High Sensitivity 8.95, Total Protein 7.7, Albumin 3.9, Amylase Level 41, Lipase 9, Procalcitonin 0.10 05/21/22 18:30: Lactic Acid Level 1.66 05/21/22 19:00: Urine Color YELLOW, Urine Clarity TURBID, Urine pH 5.5, Urine Specific [place] 1.025, Urine Protein 2+, Urine Glucose (UA) TRACE, Urine Ketones TRACE, Urine Nitrite NEGATIVE, Urine Bilirubin NEGATIVE, Urine Urobilinogen 1.0, Urine Leukocyte Esterase 2+, Urine RBC (Auto) 2+, Urine RBC 25-50, Urine WBC TNTC, Urine Squamous Epithelial Cells 2-5, Urine Crystals NONE, Urine Bacteria LARGE, Urine Casts NONE, Urine Mucus NEGATIVE, Urine Culture Indicated CULTURE PENDING 05/22/22 03:45: Glucometer 147 05/22/22 05:06: White Blood Count 28.9, Red Blood Count 4.73, Hemoglobin 13.7, Hematocrit 43, Mean Corpuscular Volume 90, Mean Corpuscular Hemoglobin 29, Mean Corpuscular Hemoglobin Concent 32, Red Cell Distribution Width 14.8, Platelet Count 383, Mean Platelet Volume 11.8, Immature Granulocyte % (Auto) 1, Neutrophils (%) (Auto) 93, Lymphocytes (%) (Auto) 3, Monocytes (%) (Auto) 2, Eosinophils (%) (Auto) 1, Basophils (%) (Auto) 0, Neutrophils # (Auto) 26.9, Lymphocytes # (Auto) 0.8, Monocytes # (Auto) 0.6, Eosinophils # (Auto) 0.2, Basophils # (Auto) 0.1, Immature Granulocyte # (Auto) 0.4, Sodium Level 138, Potassium Level 3.3, Chloride Level 106, Carbon Dioxide Level 20, Anion Gap 12, Blood Urea Nitrogen 28, Creatinine 1.95, Estimat Glomerular Filtration Rate 27, BUN/Creatinine Ratio 14, Glucose Level 135, Calcium Level 8.7, Corrected Calcium 9.3, Magnesium Level 1.0, Total Bilirubin 1.0, Aspartate Amino Transf (AST/SGOT) 16, Alanine Aminotransferase (ALT/SGPT) 13, Alkaline Phosphatase 101, Total Protein 6.5, Albumin 3.3, Procalcitonin 4.47 05/22/22 07:57: Lactic Acid Level 1.64 05/22/22 09:52: Lab Scanned Report Referred Lab Report 05/22/22 12:13: Glucometer 175 05/22/22 15:19: White Blood Count 38.3, Red Blood Count 4.03, Hemoglobin 11.9, Hematocrit 37, Mean Corpuscular Volume 92, Mean Corpuscular Hemoglobin 30, Mean Corpuscular Hemoglobin Concent 32, Red Cell Distribution Width 15.1, Platelet Count 374, Mean Platelet Volume 11.6, Immature Granulocyte % (Auto) 5, Neutrophils (%) (Auto) 88, Lymphocytes (%) (Auto) 5, Monocytes (%) (Auto) 2, Eosinophils (%) (Auto) 0, Basophils (%) (Auto) 0, Neutrophils # (Auto) 33.6, Lymphocytes # (Auto) 1.7, Monocytes # (Auto) 0.9, Eosinophils # (Auto) 0.0, Basophils # (Auto) 0.1, Immature Granulocyte # (Auto) 2.0, Neutrophils % (Manual) 73, Lymphocytes % (Manual) 3, Monocytes % (Manual) 3, Band Neutrophils 21, Acanthocytes SLIGHT, Sodium Level 135, Potassium Level 4.8, Chloride Level 107, Carbon Dioxide Level 20, Anion Gap 8, Blood Urea Nitrogen 30, Creatinine 2.22, Estimat Glomerular Filtration Rate 23, BUN/Creatinine Ratio 14, Glucose Level 189, Calcium Level 7.8, Magnesium Level 1.7 05/22/22 15:48: Glucometer 174 05/22/22 20:09: Glucometer 137 05/23/22 04:45: White Blood Count 30.9, Red Blood Count 3.86, Hemoglobin 11.4, Hematocrit 34, Mean Corpuscular Volume 89, Mean Corpuscular Hemoglobin 30, Mean Corpuscular Hemoglobin Concent 33, Red Cell Distribution Width 15.1, Platelet Count 344, Mean Platelet Volume 11.9, Immature Granulocyte % (Auto) 2, Neutrophils (%) (Auto) 90, Lymphocytes (%) (Auto) 5, Monocytes (%) (Auto) 3, Eosinophils (%) (Auto) 0, Basophils (%) (Auto) 1, Neutrophils # (Auto) 27.7, Lymphocytes # (Auto) 1.4, Monocytes # (Auto) 0.9, Eosinophils # (Auto) 0.0, Basophils # (Auto) 0.1, Immature Granulocyte # (Auto) 0.7, Sodium Level 136, Potassium Level 4.2, Chloride Level 109, Carbon Dioxide Level 16, Anion Gap 11, Blood Urea Nitrogen 35, Creatinine 1.84, Estimat Glomerular Filtration Rate 29, BUN/Creatinine Ratio 19, Glucose Level 139, Calcium Level 7.8, Magnesium Level 2.0, Corrected Calcium 8.9, Phosphorus Level 2.8, Total Bilirubin 0.5, Aspartate Amino Transf (AST/SGOT) 23, Alanine Aminotransferase (ALT/SGPT) 15, Alkaline Phosphatase 76, Total Protein 5.6, Albumin 2.6 05/23/22 06:14: Glucometer 120 05/23/22 10:29: Glucometer 130 05/23/22 15:48: Glucometer 163 05/23/22 20:57: Glucometer 161 05/24/22 05:00: White Blood Count 22.7, Red Blood Count 3.84, Hemoglobin 11.3, Hematocrit 34, Mean Corpuscular Volume 88, Mean Corpuscular Hemoglobin 29, Mean Corpuscular Hemoglobin Concent 33, Red Cell Distribution Width 15.3, Platelet Count 311, Mean Platelet Volume 11.8, Immature Granulocyte % (Auto) 1, Neutrophils (%) (Auto) 88, Lymphocytes (%) (Auto) 6, Monocytes (%) (Auto) 4, Eosinophils (%) (Auto) 0, Basophils (%) (Auto) 0, Neutrophils # (Auto) 20.0, Lymphocytes # (Auto) 1.4, Monocytes # (Auto) 0.9, Eosinophils # (Auto) 0.1, Basophils # (Auto) 0.1, Immature Granulocyte # (Auto) 0.2, Sodium Level 134, Potassium Level 3.9, Chloride Level 106, Carbon Dioxide Level 17, Anion Gap 11, Blood Urea Nitrogen 26, Creatinine 1.19, Estimat Glomerular Filtration Rate 48, BUN/Creatinine Ratio 22, Glucose Level 134, Calcium Level 8.1, Corrected Calcium 9.2, Phosphorus Level 2.1, Magnesium Level 1.9, Total Bilirubin 0.6, Aspartate Amino Transf (AST/SGOT) 22, Alanine Aminotransferase (ALT/SGPT) 18, Alkaline Phosphatase 127, Total Protein 5.9, Albumin 2.6 05/24/22 10:47: Glucometer 139 05/24/22 12:57: Glucometer 131 05/24/22 15:47: Glucometer 157 05/24/22 20:55: Glucometer 164 05/25/22 04:30: White Blood Count 25.0, Red Blood Count 3.95, Hemoglobin 11.6, Hematocrit 34, Mean Corpuscular Volume 87, Mean Corpuscular Hemoglobin 29, Mean Corpuscular Hemoglobin Concent 34, Red Cell Distribution Width 15.3, Platelet Count 310, Me an Platelet Volume 12.0, Immature Granulocyte % (Auto) 2, Neutrophils (%) (Auto) 86, Lymphocytes (%) (Auto) 4, Monocytes (%) (Auto) 8, Eosinophils (%) (Auto) 0, Basophils (%) (Auto) 0, Neutrophils # (Auto) 21.5, Lymphocytes # (Auto) 0.9, Monocytes # (Auto) 2.0, Eosinophils # (Auto) 0.1, Basophils # (Auto) 0.1, Immature Granulocyte # (Auto) 0.4, Sodium Level 134, Potassium Level 3.9, Chloride Level 103, Carbon Dioxide Level 20, Anion Gap 11, Blood Urea Nitrogen 21, Creatinine 1.07, Estimat Glomerular Filtration Rate 55, BUN/Creatinine Ratio 20, Glucose Level 139, Calcium Level 8.5, Corrected Calcium 9.7, Magnesium Level 1.7, Total Bilirubin 0.9, Aspartate Amino Transf (AST/SGOT) 26, Alanine Aminotransferase (ALT/SGPT) 20, Alkaline Phosphatase 174, Total Protein 5.8, Albumin 2.5 05/25/22 10:38: Glucometer 153 05/25/22 15:49: Glucometer 121 05/25/22 21:21: Glucometer 163 05/26/22 05:24: White Blood Count 28.1, Red Blood Count 3.65, Hemoglobin 10.7, Hematocrit 31, Mean Corpuscular Volume 86, Mean Corpuscular Hemoglobin 29, Mean Corpuscular Hemoglobin Concent 34, Red Cell Distribution Width 15.2, Platelet Count 294, Mean Platelet Volume 11.8, Immature Granulocyte % (Auto) 5, Neutrophils (%) (Auto) 79, Lymphocytes (%) (Auto) 6, Monocytes (%) (Auto) 10, Eosinophils (%) (Auto) 0, Basophils (%) (Auto) 1, Neutrophils # (Auto) 22.1, Lymphocytes # (Auto) 1.6, Monocytes # (Auto) 2.7, Eosinophils # (Auto) 0.1, Basophils # (Auto) 0.1, Immature Granulocyte # (Auto) 1.5, Sodium Level 133, Potassium Level 3.7, Chloride Level 102, Carbon Dioxide Level 21, Anion Gap 10, Blood Urea Nitrogen 17, Creatinine 1.04, Estimat Glomerular Filtration Rate 57, BUN/Creatinine Ratio 16, Glucose Level 132, Calcium Level 8.5, Corrected Calcium 9.8, Magnesium Level 1.7, Total Bilirubin 1.1, Aspartate Amino Transf (AST/SGOT) 23, Alanine Jameson otransferase (ALT/SGPT) 22, Alkaline Phosphatase 184, Total Protein 5.8, Albumin 2.4, Procalcitonin 2.90 05/26/22 10:59: Glucometer 128 05/26/22 15:55: Glucometer 95 05/26/22 20:03: Glucometer 127 05/27/22 05:26: Glucometer 127 05/27/22 05:33: B-Type Natriuretic Peptide 99.5 05/27/22 05:36: White Blood Count 31.6, Red Blood Count 3.78, Hemoglobin 10.8, Hematocrit 32, Mean Corpuscular Volume 84, Mean Corpuscular Hemoglobin 29, Mean Corpuscular Hemoglobin Concent 34, Red Cell Distribution Width 15.3, Platelet Count 308, Mean Platelet Volume 11.5, Immature Granulocyte % (Auto) 8, Neutrophils (%) (Auto) 77, Lymphocytes (%) (Auto) 6, Monocytes (%) (Auto) 9, Eosinophils (%) (Auto) 0, Basophils (%) (Auto) 0, Neutrophils # (Auto) 24.3, Lymphocytes # (Auto) 1.9, Monocytes # (Auto) 2.9, Eosinophils # (Auto) 0.1, Basophils # (Auto) 0.1, Immature Granulocyte # (Auto) 2.4, Sodium Level 132, Potassium Level 3.9, Chloride Level 101, Carbon Dioxide Level 23, Anion Gap 8, Blood Urea Nitrogen 18, Creatinine 0.86, Estimat Glomerular Filtration Rate 71, BUN/Creatinine Ratio 21, Glucose Level 146, Calcium Level 8.5, Corrected Calcium 9.8, Magnesium Level 1.7, Total Bilirubin 1.0, Aspartate Amino Transf (AST/SGOT) 29, Alanine Aminotransferase (ALT/SGPT) 23, Alkaline Phosphatase 245, Total Protein 6.2, Albumin 2.4 05/27/22 06:12: Urine Color YELLOW, Urine Clarity CLEAR, Urine pH 6.0, Urine Specific [place] 1.025, Urine Protein 2+, Urine Glucose (UA) TRACE, Urine Ketones NEGATIVE, Urine Nitrite NEGATIVE, Urine Bilirubin NEGATIVE, Urine Urobilinogen 4.0, Urine Leukocyte Esterase NEGATIVE, Urine RBC (Auto) 1+, Urine RBC RARE, Urine WBC 0-2, Urine Squamous Epithelial Cells 2-5, Urine Crystals NONE, Urine Bacteria NEGATIVE, Urine Casts NONE, Urine Mucus NEGATIVE, Urine Culture Indicated NO 05/27/22 06:15: Lactic Acid Level 0.84, Procalcitonin 1.72 05/27/22 11:12: Glucometer 105 05/27/22 16:26: Glucometer 132 Discharge Home Medications: Active Scripts Active Ceftriaxone (Ceftriaxone Sod) 1 Gram Soln 1 Gm IV DAILY Reported Nexium 24Hr (Esomeprazole Magnesium) 20 Mg Tablet.dr 20 Mg PO DAILY Zyrtec (Cetirizine HCl) 10 Mg Tablet 10 Mg PO DAILY Myrbetriq (Mirabegron) 50 Mg Tab.er.24h 50 Mg PO DAILY Fenofibrate (Fenofibrate Nanocrystallized) 145 Mg Tablet 145 Mg PO DAILY Atorvastatin Calcium 40 Mg Tablet 40 Mg PO DAILY Estradiol Tablet (Estradiol) 0.5 Mg Tablet 0.5 Mg PO DAILY Tramadol HCl 50 Mg Tablet 50 Mg PO Q6H PRN Irbesartan-Hctz 300-12.5 mg Tb (Irbesartan/Hydrochlorothiazide) 1 Each Tablet 1 Each PO DAILY Instructions to patient/family Please see electronic discharge instructions given to patient. Diagnosis/Problems Diagnosis/Problems (1) Sepsis (2) Urinary tract infection Status: Acute (3) Renal insufficiency Status: Acute Clinical Quality Measures DVT/VTE Risk/Contraindication: Contraindications-Pharm: Other *list below* Other: needs or SONI HERNANDEZ DO May 27, 2022 14:49
--- NOTE | 2022-05-27 16:12 | Progress Note - Surgery ---
Subjective Date Seen by a Provider: May 27, 2022 Time Seen by a Provider: 12:50 Subjective/Events-last exam Still with pain right upper quadrant. WBC increasing. We discussed gallbladder workup. Planning for transfer to . Denies n/v fever sweats chills shortness of breath or chest pain at this time. Focused Exam Lactate Level 05/27/22 06:15: Lactic Acid Level 0.84 Time of Focused Exam: 19:00 Objective Exam Vital Signs Date Time Temp Pulse Resp B/P (MAP) Pulse Ox O2 Delivery O2 Flow Rate FiO2 05/27/22 11:18 36.6 60 18 111/66 (81) 96 Room Air 05/27/22 08:00 Nasal Cannula 3.00 05/27/22 07:27 36.7 57 18 109/65 (80) 96 Room Air 05/27/22 03:27 37.0 88 18 122/60 (80) 96 Nasal Cannula 3.00 3.00 05/27/22 00:00 36.7 92 18 116/70 (85) 94 Nasal Cannula 3.00 05/26/22 20:00 Nasal Cannula 3.00 05/26/22 19:52 37.0 96 18 121/74 (90) 94 Nasal Cannula 3.00 I & O 05/27/22 07:00 Intake Total 795 ml Output Total 250 ml Balance 545 ml Capillary Refill : Less Than 3 Seconds General Appearance: No Apparent Distress, WD/WN, Anxious HEENT: PERRL/EOMI, Normal ENT Inspection, Pharynx Normal Neck: Full Range of Motion, Normal Inspection, Non Tender, Supple Respiratory: Chest Non Tender, No Accessory Muscle Use, No Respiratory Distress Cardiovascular: Regular Rate, Rhythm, Normal Peripheral Pulses Peripheral Pulses: 2+ Dorsalis Pedis (R), 2+ Radial Pulses (R), 2+ Radial P ulses (L) Gastrointestinal: soft, tenderness (Right upper quadrant/right flank) Extremity: Normal Capillary Refill, Normal Inspection, Normal Range of Motion, Non Tender, No Pedal Edema Neurologic/Psychiatric: Alert, Oriented x3, Normal Mood/Affect Skin: Normal Color, Warm/Dry Lymphatic: No Adenopathy Results Lab Laboratory Tests 05/26/22 20:03: Glucometer 127H 05/27/22 05:26: Glucometer 127H 05/27/22 05:33: B-Type Natriuretic Peptide 99.5 05/27/22 05:36: White Blood Count 31.6*H, Red Blood Count 3.78L, Hemoglobin 10.8L, Hematocrit 32L, Mean Corpuscular Volume 84, Mean Corpuscular Hemoglobin 29, Mean Corpuscular Hemoglobin Concent 34, Red Cell Distribution Width 15.3H, Platelet Count 308, Mean Platelet Volume 11.5, Immature Granulocyte % (Auto) 8, Neutro phils (%) (Auto) 77H, Lymphocytes (%) (Auto) 6L, Monocytes (%) (Auto) 9, Eosinophils (%) (Auto) 0, Basophils (%) (Auto) 0, Neutrophils # (Auto) 24.3H, Lymphocytes # (Auto) 1.9, Monocytes # (Auto) 2.9H, Eosinophils # (Auto) 0.1, Basophils # (Auto) 0.1, Immature Granulocyte # (Auto) 2.4H, Sodium Level 132L, Potassium Level 3.9, Chloride Level 101, Carbon Dioxide Level 23, Anion Gap 8, Blood Urea Nitrogen 18, Creatinine 0.86, Estimat Glomerular Filtration Rate 71, BUN/Creatinine Ratio 21, Glucose Level 146H, Calcium Level 8.5, Corrected Calcium 9.8, Magnesium Level 1.7, Total Bilirubin 1.0, Aspartate Amino Transf (AST/SGOT) 29, Alanine Aminotransferase (ALT/SGPT) 23, Alkaline Phosphatase 245H , Total Protein 6.2L, Albumin 2.4L 05/27/22 06:12: Urine Color YELLOW, Urine Clarity CLEAR, Urine pH 6.0, Urine Specific [place] 1.025H, Urine Protein 2+H, Urine Glucose (UA) TRACEH, Urine Ketones NEGATIVE, Urine Nitrite NEGATIVE, Urine Bilirubin NEGATIVE, Urine Urobilinogen 4.0, Urine Leukocyte Esterase NEGATIVE, Urine RBC (Auto) 1+H, Urine RBC RARE, Urine WBC 0- 2, Urine Squamous Epithelial Cells 2-5, Urine Crystals NONE, Urine Bacteria NEGATIVE, Urine Casts NONE, Urine Mucus NEGATIVE, Urine Culture Indicated NO 05/27/22 06:15: Lactic Acid Level 0.84, Procalcitonin 1.72H 05/27/22 11:12: Glucometer 105 Microbiology 05/22/22 MRSA Screen - Final, Complete MRSA not isolated 05/21/22 Urine Culture - Final, Complete Klebsiella pneumoniae 05/21/22 Blood Culture - Final, Complete Klebsiella pneumoniae Assessment/Plan Assessment/Plan Assessment/Plan sepsis secondary to pylonephritis ruq abdominal pain cholelithiasis UPJ obstruction u/s and hida no cholecystitis findings feel this is related to genitourinary system being transferred to will sign off Clinical Quality Measures DVT/VTE Risk/Contraindication: Contraindications-Pharm: Other *list below* Other: needs or CHRISTIANO GARCIA DO May 27, 2022 16:12
[2022-05-27 17:45] VITALS: BP 121/74
== END 2022-05-27 17:45 | disposition short-term general hospital (02) | DRG 871 ==
LOC: EDUNIT# 17:15 → ER 17:16 → 4TH 19:01 → INTOOBSV 19:01 → ICU 05-22 08:15 → OBSVTOIN 05-22 09:52 → 4TH 05-24 12:02
PROVIDERS: ADMIT Internal Medicine; ATTEND Internal Medicine
DX: A41.59 Other Gram-negative sepsis (principal); R65.21 Severe sepsis with septic shock; N13.6 Pyonephrosis; G72.81 Critical illness myopathy; N17.9 Acute kidney failure, unspecified; K80.20 Calculus of gallbladder without cholecystitis without obstruction; I10 Essential (primary) hypertension; E78.00 Pure hypercholesterolemia, unspecified; E11.65 Type 2 diabetes mellitus with hyperglycemia; E83.42 Hypomagnesemia; E87.6 Hypokalemia; R06.00 Dyspnea, unspecified; R09.02 Hypoxemia; Z87.891 Personal history of nicotine dependence
CPT/HCPCS: 36415; 36569; 71045; 74018; 74176; 74177; 76705; 76937; 78226; 80048; 80053; 81000; 82150; 82947; 83605; 83690; 83735; 83880; 84100; 84145; 85007; 85025; 85027; 85652; 86141; 87040; 87077; 87081; 87088; 87186; 93041; 94010; 94760; 96361; 96365; 96375; 96376; G0378